=== PATIENT | male | born 1960 | race Caucasian/White ===

== ENCOUNTER 2020-03-03 07:44 | Outpatient (CLI) | payer BC, SELFPAY ==
--- NOTE | 2020-03-19 22:17 | SLEEP_ITS ---
HOME SLEEP TEST DATE OF STUDY: 03/03/2020 ORDERING PROVIDER: An Lozoya NP. REASON FOR THE STUDY: Sleep apnea, CPAP machine is old. HISTORY: This patient is a 60-year-old male, 5 feet 9 inches tall, weighing 210 pounds with a body mass index of 31 kg/sq m. He has a history of obstructive sleep apnea, on CPAP. Most recent study in our system shows a CPAP titration on 02/04/2004 with an optimal pressure of 18 cm for severe HANSEL. Since then, he has had another study elsewhere. On his initial study, his desaturation was as low as 33%. He does have a history of loud snoring. He does not have trouble sleeping with the cold and does not wake up gasping for breath at night. He does not have breathing problems at night observed by others and he does not sweat excessively at night. He does not notice his heart pounding or beating irregularly at night. He occasionally falls asleep during the day, occasionally involuntarily. He does not fall asleep while driving, during physical effort. He does not have loss of muscle tone with strong emotion and does not have daytime difficulties due to excessive sleepiness. He does not feel paralyzed on waking or falling asleep, does not have vivid dreamlike scenes upon awakening or falling asleep. He is never afraid to go to sleep. He denies nightmares. He constantly remembers his dreams and constantly has racing thoughts. He does not have feelings of sadness, depression, or anxiety, does not have muscular tension or notices parts of his body jerking. He does not kick at night. He does not have crawly achy feelings in his legs and does not have any leg pain at night. He denies having morning jaw pain. He constantly grinds his teeth during the sleep. He is not bothered by pain during the day, is not awakened by pain during the night, does not wake up feeling stiff in the morning with sore achy muscles or pain in the neck and spine. Normal bedtime is 8 p.m., falling asleep within 10 minutes, waking once at night for about 2 minutes to use the bathroom. He awakens at 3 in the morning. He takes naps in the afternoon. A short nap can be refreshing. He is usually drowsy for 3 hours or longer after waking. He feels better in the morning than other times of the day. MEDICAL COMORBIDITIES: Obstructive sleep apnea syndrome for at least 16 years, back surgery 20 years ago, fusion at L5, and seasonal allergies. MEDICATIONS: No routine prescribed medications. HABITS: Never smoked tobacco. No caffeine or alcohol. DESCRIPTION OF THE STUDY: On the [place] Sleepiness Scale, the score was elevated at 11. This test was conducted as an unattended type 3 portable home sleep test using 4-channel monitoring, including respiratory effort channel, snoring channel, oxygen saturation channel, and heart rate channel. This study was scored using the CMS guidelines. The evaluation time was 5 hours and 42 minutes. There was a loss of signal in the pulse and saturation channels; however, during the 43 minutes that pulse and saturation were picked up, he had profound desaturation and spikes in the heart rate. His apnea-hypopnea index is elevated at 63. His oxygen desaturation index is 38. The lowest desaturation is 52, profoundly decreased. The average saturation was 87%. The patient had 357 apneas, the majority of 79% or 282 apneas were obstructive, 16 apneas or 4% were central, and 59 apneas or 17% were mixed. He had no hypopneas. He had 746 snoring events and desaturated 27 times, spending 12 minutes or 26% of the captured time below 88%. Heart rate ranged from 42 to 151. IMPRESSION: 1. This home sleep test shows severe obstructive sleep apnea syndrome, G47.33. The AHI is 63, profound desaturation to 52% occurred, and the
== END 2020-03-03 07:45 | disposition home or self-care (01) ==
LOC: ANHCSM 07:45
PROVIDERS: PCP Family Medicine; Visit Provider Nurse Practitioner
DX: G47.33 Obstructive sleep apnea (adult) (pediatric) (principal)
CPT/HCPCS: 95806

== ENCOUNTER 2020-04-14 01:48 | Outpatient (CLI) | payer BC, SELFPAY ==
[2020-04-14 20:39] LABS: SARS-CoV-2 RNA PCR Negative
== END 2020-04-14 01:49 | disposition home or self-care (01) ==
LOC: ANHCOVIDDT 01:48
PROVIDERS: PCP Family Medicine; Visit Provider Internal Medicine Critical Care Medicine
DX: Z01.812 Encounter for preprocedural laboratory examination (principal); Z20.828 Contact with and (suspected) exposure to other viral communicable diseases
CPT/HCPCS: 87635; C9803; U0003

== ENCOUNTER 2020-04-30 13:50 | Outpatient (CLI) | payer BC, SELFPAY ==
--- NOTE | ~2020-04-30 | MR_ITS ---
EXAMINATION: MR shoulder LT wo con DATE: 04/30/2020 14:30 INDICATION: Left shoulder pain. TECHNIQUE: Magnetic resonance imaging (MRI) of the left shoulder was performed without intravenous co ntrast. Sequences included axial PD-weighted FS FSE, coronal oblique PD-weighted FS FSE and T2-weight ed FS FSE, and sagittal oblique T2-weighted FS FSE and T1-weighted FSE. COMPARISON: None. FINDINGS: Coracoacromial arch: The acromion undersurface is curved in morphology (type II). There is severe acromioclavicular joint osteoarthritis including inferiorly directed osteophytes. There is moderate subacromial/subdeltoid bu rsitis. Rotator cuff: There is a full-thickness tear of supraspinatus and anterior infraspinatus tendons measuring 2.2 cm a nterior to posterior by 2.6 cm proximal to distal. Teres minor tendon is normal. There is severe subs capularis tendinopathy with partial-thickness, articular-sided tear. There is no asymmetric fatty atr ophy of the rotator cuff muscle bellies. Biceps tendon and glenoid labrum: There is a partial tear of proximal biceps tendon, which is medially displaced into the subscapularis tendon tear. There are tears of the superior and posterior labrum (SLAP tear). Fluid: There is a moderate-sized glenohumeral joint effusion. Bones/cartilage: There is cartilage surface irregularity of glenoid and humeral head. Osteophytes are noted. IMPRESSION: 1. Full-thickness rotator cuff tear. 2. Mild glenohumeral joint chondrosis. SLAP tear. 3. Partial tear of proximal biceps tendon, which is medially displaced into a subscapularis tendon te ar. 4. Moderate-sized glenohumeral joint effusion and moderate subacromial/subdeltoid bursitis. 5. Severe acromioclavicular joint osteoarthritis. Reviewed, dictated and finalized at location A. BUILDER IMPRESSION: 1. Full-thickness rotator cuff tear. 2. Mild glenohumeral joint chondrosis. SLAP tear. 3. Partial tear of proximal biceps tendon, which is medially displaced into a s ubscapularis tendon tear. 4. Moderate-sized glenohumeral joint effusion and moderate subacromial/subdelto id bursitis. 5. Severe acromioclavicular joint osteoarthritis.
== END 2020-04-30 13:51 ==
DX: M25.512 Pain in left shoulder (principal); M75.102 Unspecified rotator cuff tear or rupture of left shoulder, not specified as traumatic; S43.432A Superior glenoid labrum lesion of left shoulder, initial encounter; M94.8X2 Other specified disorders of cartilage, upper arm; S46.212A Strain of muscle, fascia and tendon of other parts of biceps, left arm, initial encounter; M25.412 Effusion, left shoulder; M75.52 Bursitis of left shoulder; M19.012 Primary osteoarthritis, left shoulder
CPT/HCPCS: 73221

== ENCOUNTER 2021-12-30 09:45 | Outpatient (CLI) | payer BC, SELFPAY ==
[2021-12-30 20:16] LABS: Basophils Absolute Auto 0.1 K/mm3 (0.0-0.1); Basophils Percent Auto 0.7 % (0.2-1.2); Eosinophils Absolute Auto 0.3 K/mm3 (0-0.3); Eosinophils Percent Auto 4.6 % (0-4.4); Hematocrit 42.8 % (42.0-52.0); Hemoglobin 14.7 g/dL (14.0-18.0); Immature Granulocyte Absolute 0.08 K/mm3 (0.00-0.031); Immature Granulocyte Percent A 1.1 % (0-0.5); Lymphocytes Absolute Auto 2.03 K/mm3 (0.9-3.2); Lymphocytes Percent Auto 28.1 % (18.3-44.2); Mean Corpuscular HGB Conc 34.3 g/dl (32-36); Mean Corpuscular Hemoglobin 32.6 pg (26-34); Mean Corpuscular Volume 94.9 fl (80-100); Mean Platelet Volume 10.7 fl (7.4-10.4); Monocytes Absolute Auto 0.4 K/mm3 (0.1-0.6); Monocytes Percent Auto 6.1 % (2.6-8.5); Neutrophils Absolute Auto 4.3 K/mm3 (1.3-6.7); Neutrophils Percent Auto 59.4 % (45.5-73.1); Nucleated Red Blood Cells Perc 0.3 % (0.0-0.2); Platelet Count Result 166 k/mm3 (150-375); Red Blood Count 4.51 M/mm3 (4.6-6.20); Red Cell Distribution Width 12.7 % (11.5-14.5); White Blood Count 7.2 K/mm3 (4.5-10.0)
[2021-12-30 21:18] LABS: Alanine Aminotransferase 36 U/L (6-50); Albumin Level 4.3 g/dL (3.5-5.1); Alkaline Phosphatase 82 U/L (38-126); Anion Gap 9 mmol/L (8-16); Aspartate Amino Transferase 40 U/L (17-59); Bilirubin,Total 0.5 mg/dL (0.2-1.3); Blood Urea Nitrogen 15 mg/dL (9-20); Calcium 9.2 mg/dL (8.4-10.2); Carbon Dioxide 28 mmol/L (22-30); Chloride 100 mmol/L (98-107); Cholesterol 227 mg/dL (0-200); Estimated Glomerular Filt Rate > 60; Glucose 175 mg/dL (65-110); HDL Direct 37 mg/dL; Potassium 4.3 mmol/L (3.4-5.0); Sodium 137 mmol/L (137-145); Triglycerides 382 mg/dL (<150)
[2021-12-30 21:29] LABS: LDL Cholesterol Direct 97 mg/dL
[2021-12-30 21:37] LABS: Vitamin D 25 Hydroxy 48.2 ng/mL
[2021-12-30 21:46] LABS: Prostate Specific Antigen 0.8 ng/mL (< OR = 4.0)
[2022-01-01 17:29] LABS: Hemoglobin A1C 7.6 % (<5.7)
== END 2021-12-30 09:46 | disposition home or self-care (01) ==
LOC: ANHGOSHLAB 09:46
PROVIDERS: PCP Nurse Practitioner; Visit Provider Nurse Practitioner
DX: Z00.00 Encounter for general adult medical examination without abnormal findings (principal); R73.9 Hyperglycemia, unspecified; E78.2 Mixed hyperlipidemia; E55.9 Vitamin D deficiency, unspecified; Z12.5 Encounter for screening for malignant neoplasm of prostate
CPT/HCPCS: 36415; 80053; 80061; 82306; 83036; 84153; 85025; G0103

== ENCOUNTER 2022-04-19 10:40 | Inpatient (IN) | payer BC, SELFPAY ==
[2022-04-19] VITALS (14 sets, daily range): BP systolic 101–126; BP diastolic 76–101; PULSE 92–109; RESP 14–24; TEMP 36.3–37.1; O2SAT 93–97; BMI 26.6
--- NOTE | 2022-04-19 10:41 | ECG_ITS ---
Measurements Intervals [place] Rate: 87 P: 32 WY: 142 QRS: -11 QRSD: 102 T: -21 QT: 418 QTc: 504 Interpretive Statements SINUS RHYTHM CONSIDER INFERIOR INFARCT, AGE INDETERMINATE ANTEROLATERAL ST ELEVATION MYOCARDIAL INFARCT- ACUTE HIGH LATERAL ST ELEVATION MYOCARDIAL INFARCT- ACUTE BASELINE WANDER- AVF ABNORMAL ECG NO PREVIOUS ECG AVAILABLE FOR COMPARISON Electronically Signed On 04-19-2022 11:42:14 GROCERY DEPARTMENT MANAGER by Teddy Renteria D.O.
--- NOTE | 2022-04-19 10:41 | ED.CHESTPAIN ---
HPI - Chest Pain General Chief Complaint: Chest Pain Stated Complaint: STEMI Source: RN notes reviewed History of Present Illness HPI narrative: Patient presents emergency department from PCPs office via EMS for chest pain. Patient states he began to have chest pain last night the pain is located over the left side of his chest and went to his left arm described as a pressure nature states it began approximately 8 PM. When he went to his PCPs office this morning EKG was obtained showing ST elevation EMS was called and the STEMI was called in the field. Patient was given 325 mg of aspirin as well as a nitro and states he is chest pain-free at this time. Denies any previous cardiac history states he does have a history of diabetes and high cholesterol Related Data Home Medications Medication Instructions Recorded Confirmed cetirizine 10 mg tablet (Zyrtec) 10 mg PO DAILY PRN 08/18/20 04/19/22 meclizine 25 mg tablet 25 mg PO DAILY PRN 12/30/21 04/19/22 cetirizine 5 mg-pseudoephedrine ER 1 tablet PO Q12H 04/19/22 04/19/22 120 mg tablet,extended release,12hr (Zyrtec-D) Allergies Allergy/AdvReac Type Severity Reaction Status Date / Time No Known Allergies Allergy Verified 04/19/22 09:20 Review of Systems Review of Systems: Gen.: Denies fevers or chills ENT: Denies congestion Respiratory: Denies shortness of breath or cough CV: See HPI GI: Denies abdominal pain nausea, emesis or diarrhea Musculoskeletal: Denies back pain or muscle pain Neuro: Denies numbness, tingling, weakness or focal weakness Skin: Denies rash Except as documented, all other systems reviewed and negative [facility] Past Medical History Medical History Combined hyperlipidemia Diabetes Erectile dysfunction HANSEL on CPAP Recurrent vertigo Vitamin D deficiency, unspecified Family History Family History Father Acute myocardial infarction Social History Social History Social History: Pt is lives with . Pt is retired. Smoking status: Never smoker Alcohol intake: current Substance use: never Substance use type: does not use Gender identity (if verbalized by the patient): Male Sexual Orientation (if Verbalized by the Patient): Straight or Heterosexual Spiritual care concerns: No Agree to blood products: Yes Exam Narrative: APPEARANCE: No acute distress, nontoxic, resting in bed EYES: EOMI HEENT: Normocephalic, atraumatic, OMM RESPIRATORY: No respiratory distress Clear to auscultation bilaterally with no rhonchi wheezing or rales. CARDIOVASCULAR: Regular rate and rhythm without murmurs rubs or gallops. ABDOMINAL: Soft, nontender, nondistended, no rebound or guarding MUSCULOSKELETAl: Moves all extremities. No clubbing, cyanosis or edema. NEURO: Awake and alert. Following commands, speech normal, no focal deficits SKIN:: Warm, dry. No rashes lesions or abrasions PSYCHIATRIC: Normal affect/mood, Course Course Emergency Course: Code STEMI activated upon activation by EMS in the field Concentrator Operator team is down in the emergency department requests patient go to Concentrator Operator at this time Heparin 4000 units to be given x1 at this time Vital Signs Vital signs: Vital Signs Temperature 97.3 F L 04/19/22 10:43 Pulse Rate 96 04/19/22 10:43 Respiratory Rate 14 04/19/22 10:43 Blood Pressure 118/90 04/19/22 10:43 Pulse Oximetry 97 04/19/22 10:43 Temperature 97.3 F L 04/19/22 10:43 Pulse Rate 96 04/19/22 10:43 Respiratory Rate 14 04/19/22 10:43 Blood Pressure 118/90 04/19/22 10:43 Pulse Oximetry 97 04/19/22 10:43 MDM - Chest Pain Lab Data Result diagrams: 04/19/22 10:47 04/19/22 10:47 Labs: Lab Results 04/19/22 04/19/22 04/19/22 Range/Units 10:47 10:47 10:47 WBC 13.7 H (4.5-10.0)
--- NOTE | 2022-04-19 10:45 | WPDMODSED ---
Moderate Sedation Note-Pt Data Patient Data Diagnosis: STEMI Present Complaint: chest pain Procedure to be performed/Plan: coronary angiogram with possible stent Allergies Allergy/AdvReac Type Severity Reaction Status Date / Time No Known Allergies Allergy Verified 04/19/22 09:20 Home Medications Medication Instructions Recorded Confirmed Type cetirizine 10 mg tablet (Zyrtec) 10 mg PO DAILY PRN 08/18/20 04/19/22 History meclizine 25 mg tablet 25 mg PO DAILY PRN 12/30/21 04/19/22 History sildenafil (pulm.hypertension) 20 20 mg PO .COMPLEX PRN sexual 12/30/21 04/19/22 Rx mg tablet activity #30 tabs blood sugar diagnostic (OneTouch #50 ea 01/13/22 04/19/22 Rx Ultra Test strips) blood-glucose meter (OneTouch #1 ea 01/13/22 04/19/22 Rx Ultra2 Meter kit) lancets 30 gauge (OneTouch Delica #100 ea 01/13/22 04/19/22 Rx Lancets) metformin 500 mg tablet 1,000 mg PO BIDWMEAL #120 tabs 03/05/22 04/19/22 Rx cetirizine 5 mg-pseudoephedrine ER 1 tablet PO Q12H 04/19/22 04/19/22 History 120 mg tablet,extended release,12hr (Zyrtec-D) Sedation/Anesthesia: No previous sedation/anesthesia problems (including family history). [facility] Past Medical History Medical History Combined hyperlipidemia Diabetes Erectile dysfunction HANSEL on CPAP Recurrent vertigo Vitamin D deficiency, unspecified Family History Family History Father Acute myocardial infarction Social History Social History Social History: Pt is lives with . Pt is retired. Smoking status: Never smoker Alcohol intake: current Substance use: never Substance use type: does not use Gender identity (if verbalized by the patient): Male Sexual Orientation (if Verbalized by the Patient): Straight or Heterosexual Spiritual care concerns: No Agree to blood products: Yes Mod Sed Physical Exam Physical Exam Pre Procedural Exam: Normal: Appearance, Eyes, Ears, Nose, Neck, Throat, Airway, Lungs, Heart Size, Heart Rate, Heart Rhythm, Neuro Exam, Abdomen, Liver, Kidneys, Spleen, Breasts, Genitalia, Extremities and Skin Hours since solid foods: 8 Hours since liquid intake: 8 Mallampati Classification: class 1 Internal Medicine - PN: Obj Da Vital Signs Vital Signs: Vital Signs - 24 hr 04/19/22 10:43 Temperature 36.3 C L Pulse Rate 96 Respiratory Rate 14 Blood Pressure 118/90 Pulse Oximetry 97 Labs CBC & Chem 7: 04/19/22 10:47 04/19/22 10:47 Labs: Laboratory Results - last 24 hr 04/19/22 04/19/22 04/19/22 10:47 10:47 10:47 WBC 13.7 H RBC 4.37 L Hgb 14.6 Hct 41.7 L MCV 95.4 MCH 33.4 MCHC 35.0 RDW 12.7 Plt Count 274 D MPV 9.8 Immature Gran % (Auto) 0.5 Neut % (Auto) 70.1 Lymph % (Auto) 19.5 [place] % (Auto) 6.6 Eos % (Auto) 2.9 Baso % (Auto) 0.4 Lymph # (Auto) 2.67 [place] # (Auto) 0.9 H Eos # (Auto) 0.4 H Baso # (Auto) 0.1 Abs Immat Gran (auto) 0.07 H Absolute Neuts (auto) 9.6 H Absolute Nucleated RBC 0.0 Nucleated RBC % 0.0 PT 13.7 INR 1.1 APTT 33.7 Sodium 135 L Potassium 4.1 Chloride 100 Carbon Dioxide 26 Anion Gap 9 BUN 19 Creatinine 1.10 Estim Creat Clear Calc 64 Estimated GFR > 60 Glucose 169 H Calcium 8.9 Total Bilirubin 0.9 AST 203 H ALT 49 Alkaline Phosphatase 80 Troponin I 16.100 H* Total Protein 7.0 Albumin 4.6 Triglycerides 168 H Cholesterol 158 LDL Cholesterol Direct 88 HDL Direct 39 Blood Type 04/19/22 10:47 WBC RBC Hgb Hct MCV MCH MCHC RDW Plt Count MPV Immature Gran % (Auto) Neut % (Auto) Lymph % (Auto) [place] % (Auto) Eos % (Auto) Baso % (Auto) Lymph # (Auto) [place] # (Auto) Eos # (Auto) Baso # (Au
[2022-04-19] MEDS: HEPARIN SODIUM 5,000 UNITS/ML VIAL 4000 UNITS IV PUSH (10:50)
[2022-04-19 10:52] LABS: Basophils Absolute Auto 0.1 K/mm3 (0.0-0.1); Basophils Percent Auto 0.4 % (0.2-1.2); Eosinophils Absolute Auto 0.4 K/mm3 (0-0.3); Eosinophils Percent Auto 2.9 % (0-4.4); Hematocrit 41.7 % (42.0-52.0); Hemoglobin 14.6 g/dL (14.0-18.0); Immature Granulocyte Absolute 0.07 K/mm3 (0.00-0.031); Immature Granulocyte Percent A 0.5 % (0-0.5); Lymphocytes Absolute Auto 2.67 K/mm3 (0.9-3.2); Lymphocytes Percent Auto 19.5 % (18.3-44.2); Mean Corpuscular Hemoglobin 33.4 pg (26-34); Mean Corpuscular Volume 95.4 fl (80-100); Mean Platelet Volume 9.8 fl (7.4-10.4); Monocytes Absolute Auto 0.9 K/mm3 (0.1-0.6); Monocytes Percent Auto 6.6 % (2.6-8.5); Neutrophils Absolute Auto 9.6 K/mm3 (1.3-6.7); Neutrophils Percent Auto 70.1 % (45.5-73.1); Platelet Count Result 274 k/mm3 (150-375); Red Blood Count 4.37 M/mm3 (4.6-6.20); Red Cell Distribution Width 12.7 % (11.5-14.5); White Blood Count 13.7 K/mm3 (4.5-10.0)
[2022-04-19 11:03] LABS: Alanine Aminotransferase 49 U/L (6-50); Albumin Level 4.6 g/dL (3.5-5.1); Alkaline Phosphatase 80 U/L (38-126); Anion Gap 9 mmol/L (8-16); Aspartate Amino Transferase 203 U/L (17-59); Bilirubin,Total 0.9 mg/dL (0.2-1.3); Blood Urea Nitrogen 19 mg/dL (9-20); Calcium 8.9 mg/dL (8.4-10.2); Carbon Dioxide 26 mmol/L (22-30); Chloride 100 mmol/L (98-107); Cholesterol 158 mg/dL (0-200); Estimated CRCL calculation 64 ml/min; Estimated Glomerular Filt Rate > 60; Glucose 169 mg/dL (65-110); HDL Direct 39 mg/dL; Potassium 4.1 mmol/L (3.4-5.0); Sodium 135 mmol/L (137-145); Triglycerides 168 mg/dL (<150)
[2022-04-19 11:05] LABS: INR 1.1; Prothrombin Time 13.7 Seconds (11.1-14.7)
[2022-04-19 11:06] LABS: Partial Thromboplastin Time 33.7 SECONDS (22.3-36.8)
[2022-04-19 11:14] LABS: LDL Cholesterol Direct 88 mg/dL
--- NOTE | 2022-04-19 11:47 | PM.IMHP ---
H&P: HPI History of Present Illness Date/Time: Date of service 04/19/22 1047am Chief Complaint: chest pain Narrative: this 62-year-old patient past history type 2 diabetes, on metformin started yesterday at 8:00 p.m. having chest pain right and left arms. He thought it is muscle aches. He presented here to the ER and was anterior ST-elevation myocardial infarction with Q-waves. Was having pain about 5/10. Denies shortness of breath, palpitations, dizziness, syncope . Does not smoke cigarettes and does not drink alcohol Review of Systems Constitutional: Constitutional: Denies chills, Denies fever(s) and Denies poor appetite Eyes: Eyes: Denies eye discharge, Denies loss of vision, Denies eye pain and Denies photophobia ENT: Denies dizziness, Denies epistaxis, Denies nasal congestion and Denies sore throat Cardiovascular: Cardiovascular: Reports chest pain, Denies syncope, Denies pedal edema, Denies leg edema, Denies palpitations, Denies dyspnea, Denies dyspnea on exertion and Denies orthopnea Respiratory: Respiratory: Denies cough, Denies dyspnea, Denies dyspnea on exertion and Denies wheezing Gastrointestinal: Gastrointestinal: Denies abdominal pain, Denies diarrhea, Denies nausea and Denies vomiting Genitourinary: Genitourinary: Denies hematuria, Denies genital lesions and Denies dysuria Musculoskeletal: Musculoskeletal: Denies arthralgias, Denies joint swelling and Denies numbness Integumentary/Breasts: Skin/Breast: Denies pruritus and Denies rash Neurologic: Denies dizziness, Denies syncope, Denies loss of vision and Denies numbness Psychiatric: Psychiatric: Denies anxiety and Denies depression Endocrine: Endocrine: Denies cold intolerance, Denies heat intolerance and Denies palpitations Hematologic/Lymphatic: Hematologic/Lymphatic: Denies easy bleeding and Denies easy bruising Allergic/Immunologic: Allergic/Immunologic: Denies urticaria and Denies wheezing PMFSH Past Medical History Medical History Combined hyperlipidemia Diabetes Erectile dysfunction HANSEL on CPAP Recurrent vertigo Vitamin D deficiency, unspecified Family History Family History Father Acute myocardial infarction Social History Social History Social History: Pt is lives with . Pt is retired. Smoking status: Never smoker Alcohol intake: current Substance use: never Substance use type: does not use Gender identity (if verbalized by the patient): Male Sexual Orientation (if Verbalized by the Patient): Straight or Heterosexual Spiritual care concerns: No Agree to blood products: Yes Meds Home Medications and Allergies Home Medications Medication Instructions Recorded Confirmed Type cetirizine 10 mg tablet (Zyrtec) 10 mg PO DAILY PRN 08/18/20 04/19/22 History meclizine 25 mg tablet 25 mg PO DAILY PRN 12/30/21 04/19/22 History sildenafil (pulm.hypertension) 20 20 mg PO .COMPLEX PRN sexual 12/30/21 04/19/22 Rx mg tablet activity #30 tabs blood sugar diagnostic (OneTouch #50 ea 01/13/22 04/19/22 Rx Ultra Test strips) blood-glucose meter (OneTouch #1 ea 01/13/22 04/19/22 Rx Ultra2 Meter kit) lancets 30 gauge (OneTouch Delica #100 ea 01/13/22 04/19/22 Rx Lancets) metformin 500 mg tablet 1,000 mg PO BIDWMEAL #120 tabs 03/05/22 04/19/22 Rx cetirizine 5 mg-pseudoephedrine ER 1 tablet PO Q12H 04/19/22 04/19/22 History 120 mg tablet,extended release,12hr (Zyrtec-D) Allergies Allergy/AdvReac Type Severity Reaction Status Date / Time No Known Allergies Allergy Verified 04/19/22 09:20 Vital Signs Vital Signs - 24 hr 04/19/22 10:43 Temperature 36.3 C L Pulse Rate 96 Respiratory Rate 14 Blood Pressure 118/90 Pulse Oximetry 97 Exam Const: General: cooperative, comfortable, no acute distress, alert, awake and
--- NOTE | 2022-04-19 11:52 | WPDCARDPROC ---
Cardiac Cath Procedure Note Date of procedure:: 04/19/22 Performing physician:: Carlin Matthew MD Indication:: chest pain anterior STEMI Brief clinical history:: this 62-year-old patient past history type 2 diabetes,? on metformin started yesterday at 8:00 p.m. having chest pain right and left arms.? He thought it is muscle aches.? He presented here to the ER and was anterior ST-elevation myocardial infarction with Q-waves.? Was having pain about 5/10.? Denies shortness of breath, palpitations, dizziness, syncope . Does not smoke cigarettes and does not drink alcohol Procedure Procedure performed:: 1-Moderate sedation that started at 11:02 a.m.and ended at 11:41 am with total duration 39 minutes using 1 mg of Versed and 50mcg fentanyl. The registered nurse was Carlos Adam. 2-Selective left and right coronary angiogram. 3-Left heart catheterization with measurement of LVEDP and measurement of gradient across aortic valve. 4- deployment of a drug-eluting stent Xience 3 x 23 covering mid LAD with deployment done under nominal pressure for 25 seconds 4-Right common femoral arterial angiogram. 5-Deployment of 6 Prydeinig Angio-Seal. Sedation/Medication given:: Moderate sedation. Access site:: Right common femoral artery. Estimated blood loss:: 10cc Procedure note:: After informed consent patient was brought in to labor relations specialist with the was draped and prepped in usual manner. Moderate sedation was given and the right groin was infiltrated using 1% lidocaine. Five Prydeinig sheath was obtained using micropuncture needle and the modified Seldinger technique. Selective left coronary angiogram was done using JL4 catheter with the tip of the catheter placed in the left main coronary artery. then after that 6 Prydeinig guide catheter CLS 3.5 was advanced engaging the left main. Board Certified Arts Therapist 150 wire was advanced across the mid LAD lesion to the distal LAD and then balloon angioplasty done using 3 x 15 balloon with 3 inflations each under normal pressure for 15 seconds. then after that deployed drug-eluting stent 3 x 23 Xience glenn point with deployment under normal pressure for 25 seconds. Selective right coronary angiogram was done using JR4 catheter with the tip of the catheter placed to the right coronary artery. After that 5 Prydeinig pigtail catheter was advanced across the aortic valve into the left ventricle with measurement of LVEDP and measurement of gradient across aortic valve. Right common femoral arterial angiogram was done. deployed 6 Prydeinig Angio-Seal Findings:: 1- left coronary artery is a large artery that divides into large LAD, large circumflex artery. Left main is free of disease. 2- left anterior descending artery is a large artery And totally occluded in the mid segment after bifurcation with the large septal branch. SIERRA flow 0 3- leftcircumflex artery is a large artery. after giving OM branch the chicken [place] left circumflex artery is relatively small with the stenosis about 80%. OM1 branch is large with diffuse 50% proximally. 4- right coronary artery is Large artery dominant with multiple lesions 40-50%. RPL small in size with focal area of 70%. 5- LVEDP was 30 mm Hgand no gradient across aortic valve. 6- opening arterial pressure was 155/44 and closing pressure was 123/72 7- right femoral artery angiogram shows no significant disease in the right common femoral artery. Assessment and Plan Assessment and plan (1) ST elevation (STEMI) myocardial infarction: Code(s): I21.3 - ST elevation (STEMI) myocardial infarction of unspecified site Status: Acute Plan 1- obtain echocardiogram. 2- high-intensity statin. 3- check hemoglobin A1c. 4- diabetic Education. 5- cardiac rehab. 6- continue aspirin and Brilinta
--- NOTE | 2022-04-19 12:07 | ECHO_ITS ---
Patient Info Name: Sesar Alves Age: 62 years : 1960 Gender: Male Ht: 69 in Wt: 169 lbs BSA: 1.94 m2 HR: 91 bpm BP: 118 / 90 mmHg Heart Rhythm: Sinus Rhythm Technical Quality: Good Exam Date: 04/19/2022 2:59 PM Exam Location: [facility] Patient Status: Inpatient Admit Date: 04/19/2022 Staff Ordering Physician: Carlin Matthew MD Management Accounts Manager: Norma Larry RDCS Attending Provider: Andrew Muñiz MD Referring Physician: Vipul RIVERA; Exam Type: CA echo dop color flow w con Study Info Indications I21.4 - Non-ST elevation (NSTEMI) myocardial infarction Complete two-dimensional, color flow and Doppler transthoracic echocardiogram is performed with contrast to opacify the left ventricle and to improve the deliniation of the left ventricle endocardial borders. Contrast/Agitated Saline Contrast/Ag. Saline: Definity Amount: 3.00 ml Administered By: Norma Larry RDCS Existing IV Access: Yes IV Access Condition: patent with no signs of infiltration Summary 1. Left ventricular systolic function is moderately reduced, estimated at 30-35%. 2. Regional wall motion abnormalities consistent with an LAD infarct. 3. There is mildly increased left ventricular wall thickness. 4. The left ventricular diastolic function is grade I diastolic dysfunction. 5. Right ventricular systolic function is normal. 6. No significant valvular disease. Left Ventricle Left ventricular chamber dimension is normal. Left ventricular systolic function is moderately reduced, estimated at 30-35%. There is mildly increased left ventricular wall thickness. The left ventricular diastolic function is grade I diastolic dysfunction. Regional wall motion abnormalities consistent with an LAD infarct. Right Ventricle Right ventricular chamber dimension is normal. Right ventricular systolic function is normal. Left Atria Left atrial chamber dimension is normal. Right Atria Right atrial chamber dimension is normal. Atrial Septum Intact interatrial septum visualized by color flow imaging. Aortic Valve The aortic valve is not well visualized. There is no aortic valve stenosis. There is no aortic valve regurgitation. Pulmonic Valve The pulmonic valve is not well visualized. Mitral Valve The mitral valve has not well visualized. There is no mitral valve stenosis. There is no mitral valve regurgitation. Tricuspid Valve The tricuspid valve leaflets are normal. There is trace tricuspid valve regurgitation. Pericardium/Pleural There is trivial pericardial effusion. Aorta The aortic root size at the sinus of Valsalva is normal. Left Ventricular Outflow Tract Name Value Normal LVOT 2D LVOT Diameter 2.04 cm LVOT Doppler LVOT Peak Gradient 4 mmHg LVOT Mean Gradient 3 mmHg LVOT VTI 15.96 cm LVOT VTI/AV VTI Ratio 1.02 LVOT Stroke Volume 52.39 ml LVOT CO 5.29 l/min
--- NOTE | 2022-04-19 12:07 | ECG_ITS ---
Measurements Intervals [place] Rate: 87 P: 32 MN: 142 QRS: -11 QRSD: 102 T: -21 QT: 418 QTc: 504 Interpretive Statements SINUS RHYTHM CONSIDER INFERIOR INFARCT, AGE INDETERMINATE ANTEROLATERAL ST ELEVATION MYOCARDIAL INFARCT- ACUTE HIGH LATERAL ST ELEVATION MYOCARDIAL INFARCT- ACUTE BASELINE WANDER- II, AVR, AVF ABNORMAL ECG Electronically Signed On 04-19-2022 12:55:28 SLAB STRIPPER by Teddy Renteria D.O.
--- NOTE | 2022-04-19 12:09 | PC.NURSE ---
This patient, Sesar Alves, was admitted to Intensive Care Unit-11. Patient/family oriented to hospital policies and general routines including ID bracelet, bed and alarms, visiting hours, pain management, procedures, bathroom and other care routines, personal items, smoking policy, room service/diet, and visiting hours. Information on how to activate the Rapid Response Team has been discussed. Patient/Family are encouraged to report perceived risks to care and to ask questions if they do not understand what they are told or what they should do.
--- NOTE | 2022-04-19 13:04 | WPDCNINT ---
Assessment and Plan Assessment and plan (1) ST elevation (STEMI) myocardial infarction: Code(s): I21.3 - ST elevation (STEMI) myocardial infarction of unspecified site Status: Acute Assessment and Plan: Anterior STEMI status post cardiac catheterization and PCI of left anterior descending artery which was 100% occluded ICU telemetry Check echocardiogram Continue aspirin, statin and Brilinta Start low-dose ARB and beta-penny (2) Diabetes: Qualifiers: Diabetes mellitus complication status: without complication Diabetes mellitus fdc insulin use: without unit supervisor use Diabetes mellitus type: type 2 Qualified Code(s): E11.9 - Type 2 diabetes mellitus without complications Code(s): E11.9 - Type 2 diabetes mellitus without complications Status: Acute Assessment and Plan: Sliding scale insulin HbA1c is 7.6 Metformin will be held today and resume from tomorrow IV fluids for renal protection Plan DVT prophylaxis -received anticoagulation prior to PCI and I expect patient will ambulate by tomorrow Nutrition -heart healthy diet Code Status - Full Code Patient's Family updated at bedside Medical Imaging Director Consult Note Consult date: 04/19/22 Reason for consult: STEMI HPI: Sesar Alves is a 62 year old male with past medical history of diabetes presented today from his PCP office with chest pain. Pain started around 8:00 p.m. last night, he stated the pain started in his left armpit and radiated to left arm, throbbing quality, 8/10 severe. No nausea vomiting dizziness lightheadedness shortness of breath or palpitation. He felt that he was breathing heavier than usual. He took some [id number] pain medication and slept. This morning he went to see his primary care physician where EKG showed ST segment elevation he was sent by ambulance to ER. ED he was diagnosed with STEMI and was taken to cardiac catheterization lab where he underwent PCI with stent placement to LAD. He had elevated LVEDP. Procedure was otherwise uncomplicated Postprocedure he is admitted to ICU for further evaluation management. At this time he denies any new complaints he states his pain has improved and he would only rate at 2/10 achy pain at this time. No other complaints at this time. All other systems were reviewed and were negative Review of Systems Review of Systems: All systems reviewed & are unremarkable except as noted in HPI and below (HPI) FORMERLY [facility], [facility] Past Medical History Medical History Combined hyperlipidemia Diabetes Erectile dysfunction HANSEL on CPAP Recurrent vertigo Vitamin D deficiency, unspecified Family History Family History Father Acute myocardial infarction Social History Social History Social History: Pt is lives with . Pt is retired. Smoking status: Never smoker Alcohol intake: never Substance use: never Substance use type: marijuana Lack of Transportation: No Lack of Food: Never True Current Housing: I Have Housing Concerned About Future Housing: No Difficulty Paying Gas/Electric Bills: No Difficulty Paying for Meds: No Currently Unemployed: No Education: High School Diploma/GED Difficulty w/ Childcare or Family Care: No Gender identity (if verbalized by the patient): Male Sexual Orientation (if Verbalized by the Patient): Straight or Heterosexual Spiritual care concerns: No Agree to blood products: Yes Meds Home Medications and Allergies Home Medications Medication Instructions Recorded Confirmed Type meclizine 25 mg tablet 25 mg PO DAILY PRN Vertigo 12/30/21 04/19/22 History sildenafil (pulm.hypertension) 20 20 mg PO .COMPLEX PRN sexual 12/30/21 04/19/22 Rx mg tablet activity #30 tabs blood sugar diagnostic (OneTouch #50 ea 01/13/22 04/19/22 Rx Ultr
[2022-04-19] MEDS: HYDROcodone/acetaminophen (*CRX) 5-325 MG TABLET 1 TAB PO ×3 (13:34→21:57)
[2022-04-19 13:58] LABS: Cholesterol 151 mg/dL (0-200); HDL Direct 43 mg/dL; Triglycerides 155 mg/dL (<150)
[2022-04-19 14:02] LABS: Troponin I > 80.000 ng/mL (0.000-0.034)
[2022-04-19 14:03] LABS: Hemoglobin A1C 6.7 % (<5.7)
[2022-04-19 14:08] LABS: LDL Cholesterol Direct 86 mg/dL
[2022-04-19 14:17] LABS: Glucose Point of Care 156 mg/dl (65-105)
[2022-04-19] MEDS: ACETAMINOPHEN 325 MG TABLET 650 MG PO (15:20)
[2022-04-19] MEDS: PERFLUTREN LIPID MICROSPHERES 1.5 ML VIAL DILUTED TO 10 ML TOTAL VOLUME IV PUSH (15:25)
[2022-04-19] MEDS: METOPROLOL TARTRATE 12.5 MG TABLET PO (20:12)
[2022-04-19] MEDS: TICAGRELOR 90 MG TABLET PO (20:12)
[2022-04-19 20:27] LABS: Glucose Point of Care 230 mg/dl (65-105)
[2022-04-19] MEDS: TEMAZEPAM (*CRX) 15 MG CAPSULE PO (22:02)
[2022-04-20] VITALS (15 sets, daily range): BP systolic 93–121; BP diastolic 65–97; PULSE 57–131; RESP 13–26; TEMP 36.4–36.9; O2SAT 93–97
[2022-04-20] MEDS: ACETAMINOPHEN 325 MG TABLET 650 MG PO ×2 (00:18→07:58)
[2022-04-20] MEDS: HYDROcodone/acetaminophen (*CRX) 5-325 MG TABLET 1 TAB PO ×2 (02:19→21:42)
[2022-04-20 04:52] LABS: Anion Gap 11 mmol/L (8-16); Blood Urea Nitrogen 14 mg/dL (9-20); Calcium 8.7 mg/dL (8.4-10.2); Carbon Dioxide 25 mmol/L (22-30); Chloride 102 mmol/L (98-107); Estimated CRCL calculation 92 ml/min; Estimated Glomerular Filt Rate > 60; Glucose 159 mg/dL (65-110); Magnesium 1.7 mg/dL (1.6-2.3); Potassium 3.5 mmol/L (3.4-5.0); Sodium 138 mmol/L (137-145)
[2022-04-20 05:08] LABS: Basophils Percent Auto 0.3 % (0.2-1.2); Eosinophils Absolute Auto 0.2 K/mm3 (0-0.3); Eosinophils Percent Auto 2.1 % (0-4.4); Hematocrit 38.9 % (42.0-52.0); Hemoglobin 13.4 g/dL (14.0-18.0); Immature Granulocyte Absolute 0.05 K/mm3 (0.00-0.031); Immature Granulocyte Percent A 0.4 % (0-0.5); Lymphocytes Absolute Auto 1.87 K/mm3 (0.9-3.2); Lymphocytes Percent Auto 16.8 % (18.3-44.2); Mean Corpuscular HGB Conc 34.4 g/dl (32-36); Mean Corpuscular Hemoglobin 32.8 pg (26-34); Mean Corpuscular Volume 95.3 fl (80-100); Mean Platelet Volume 10.3 fl (7.4-10.4); Neutrophils Absolute Auto 7.9 K/mm3 (1.3-6.7); Neutrophils Percent Auto 71.4 % (45.5-73.1); Platelet Count Result 188 k/mm3 (150-375); Red Blood Count 4.08 M/mm3 (4.6-6.20); Red Cell Distribution Width 12.8 % (11.5-14.5); White Blood Count 11.1 K/mm3 (4.5-10.0)
--- NOTE | 2022-04-20 07:00 | ECG_ITS ---
Measurements Intervals [place] Rate: 95 P: 37 [place]: 124 QRS: 46 QRSD: 102 T: 186 QT: 410 QTc: 516 Interpretive Statements SINUS RHYTHM ANTEROLATERAL INFARCT, PROBABLY RECENT HIGH LATERAL INFARCT, PROBABLY RECENT ABNORMAL ECG COMPARED TO ECG 04/19/2022 10:40:53 NO SIGNIFICANT CHANGES Electronically Signed On 04-20-2022 10:58:40 CLAIMS SUPERVISOR by Teddy Renteria D.O.
[2022-04-20] MEDS: ASPIRIN 81 MG ENTERIC TABLET PO (08:04)
[2022-04-20] MEDS: TICAGRELOR 90 MG TABLET PO (08:04)
[2022-04-20] MEDS: ATORVASTATIN 40 MG TABLET 80 MG PO (08:04)
[2022-04-20] MEDS: METOPROLOL TARTRATE 12.5 MG TABLET PO (08:04)
[2022-04-20] MEDS: LOSARTAN POTASSIUM 25 MG TABLET PO (08:04)
[2022-04-20] MEDS: metFORMIN HCL 500 MG TABLET 1000 MG PO ×2 (08:04→16:58)
[2022-04-20 08:09] LABS: Glucose Point of Care 186 mg/dl (65-105)
--- NOTE | 2022-04-20 09:41 | PM.PNCARD ---
Progress Note: A&P Assessment and Plan (1) ST elevation (STEMI) myocardial infarction: Code(s): I21.3 - ST elevation (STEMI) myocardial infarction of unspecified site Status: Acute (2) Diabetes: Qualifiers: Diabetes mellitus type: type 2 Diabetes mellitus jail insulin use: without gas roller operator use Diabetes mellitus complication status: without complication Qualified Code(s): E11.9 - Type 2 diabetes mellitus without complications Code(s): E11.9 - Type 2 diabetes mellitus without complications Status: Acute (3) Combined hyperlipidemia: Code(s): E78.2 - Mixed hyperlipidemia Status: Chronic Plan Presented with an anterolateral STEMI 04/19. Cardiac cath showed: 1- left coronary artery is a large artery that divides into large LAD, large circumflex artery.? Left main is free of disease. 2- left anterior descending artery is a large artery? And totally occluded in the mid segment after bifurcation with the large septal branch.? SIERRA flow 0 3- left circumflex artery is a large artery. after giving? OM branch the [place] left circumflex artery is relatively small with the stenosis about 80%.? OM1 branch is large with diffuse? 50% proximally. 4- right coronary artery is? Large artery dominant with multiple lesions 40-50%. RPL small in size with focal area of 70%. 5- LVEDP was ? 30 mmHg and no gradient across aortic valve. 6- opening arterial pressure was 155/44 and closing pressure was? 123/72 7- right femoral artery angiogram shows no significant disease in the right common femoral artery. Underwent JOHNNY x 1 to the mid-LAD. Continue DAPT with ASA and Brilinta. Will need ASA indefinitely, Brilinta for at least 1 year. Continue high-intensity statin. Continue beta-penny. Continue Losartan. Echo pending, will follow-up on results. Referral to cardiac rehab placed. Time Spent With Patient Time with patient: 15 - 25 minutes Subjective Date/time seen: 04/20/22 09:41 Interval history: Reason for visit: STEMI. Had some mild chest pain overnight. Feels good this morning. No shortness of breath, lightheadedness/dizziness. No bleeding issues. Tolerating meds okay. Review of Systems Review of Systems: 8-point ROS obtained. Negative, unless stated in HPI. Exam Const: General: comfortable and no acute distress HENMT: Mouth: Yes moist mucous membranes Eyes: General: appearance normal, both eyes and all related structures Neck: Neck: supple and no JVD Resp: Effort & Inspection: normal respiratory effort Auscultation: clear to auscultation bilaterally Cardio: Rate: regular rate Rhythm: regular rhythm Heart sounds: no murmurs GI: GI Palp: Yes Soft to palpation and No Tenderness to palpation present (GI) Skin: General skin exam: normal color Neuro: Speech: normal speech Extrem: General: no edema Psych: Mental Status: mental status grossly normal Objective Data Vital Signs Vital Signs: Vital Signs - 24 hr 04/19/22 10:43 04/19/22 12:15 04/19/22 14:00 Temperature 36.3 C L Pulse Rate 96 104 H 96 Respiratory Rate 14 20 Blood Pressure 118/90 125/84 Pulse Oximetry 97 94 Oxygen Delivery 04/19/22 14:00 04/19/22 12:15 04/19/22 12:30 Temperature Pulse Rate 96 95 Respiratory Rate 20 20 Blood Pressure 120/101 H 121/89 Pulse Oximetry 96 94 95 Oxygen Delivery Room Air 04/19/22 12:45 04/19/22 13:00 04/19/22 13:30 Temperature Pulse Rate 98 95 94 Respiratory Rate 16 18 18 Blood Pressure 122/86 126/97 H 126/90 Pulse Oximetry 97 97 97 Oxygen Delivery 04/19/22 14:00 04/19/22 15:00 04/19/22 16:00 Temperature Pulse Rate 96 102 H 103 H Respiratory Rate 20 20 24 H Blood Pressure 120/101 H 115/79 108/77 Pulse Oximetry 96 95 96 Oxygen Delivery 04/19/22 16:00 04/19/22 16:00 04/19/22 17:00 Temperature Pulse Rate 104 H 106 H Respiratory Rate 20 Blood Pressure 105/85 Pulse Oximetry 94 95 Oxygen Delivery Room Air
--- NOTE | 2022-04-20 09:55 | WPDCNINT ---
Assessment and Plan Assessment and plan (1) ST elevation (STEMI) myocardial infarction: Code(s): I21.3 - ST elevation (STEMI) myocardial infarction of unspecified site Status: Acute Assessment and Plan: Patient presented with chest pain on 04/19/2022 , he was sent from his PCP's office via EMS to the ED for chest pain and EKG showed changes revealing ST-elevation [place]. In the ED EKG showed anterolateral high lateral ST elevations -status post PTCA/PCI with JOHNNY x1 to mid LAD -cardiology following the patient -continue dual antiplatelet therapy with aspirin and Brilinta. -continue high-dose statin, -continue beta-penny beta-penny and losartan -echocardiogram has been done and pending report (2) Diabetes: Qualifiers: Diabetes mellitus type: type 2 Diabetes mellitus usp insulin use: without long filler cigar roller machine use Diabetes mellitus complication status: without complication Qualified Code(s): E11.9 - Type 2 diabetes mellitus without complications Code(s): E11.9 - Type 2 diabetes mellitus without complications Status: Acute Assessment and Plan: Hemoglobin A1c is 6.7 -patient was recently diagnosed with diabetes, -continue metformin (3) HANSEL on CPAP: Code(s): G47.33 - Obstructive sleep apnea (adult) (pediatric); Z99.89 - Dependence on other enabling machines and devices Status: Chronic Assessment and Plan: CPAP at night and while sleeping (4) Combined hyperlipidemia: Code(s): E78.2 - Mixed hyperlipidemia Status: Chronic Assessment and Plan: Continue high-dose atorvastatin per Cardiology Plan DVT prophylaxis: Patient is going to be ambulate Stress ulcer prophylaxis: Not applicable Nutrition: Heart healthy diet, consulted dietitian Code Status: Full code Critical Care Time Spent: 43 minutes Due to a high probability of clinically significant, life threatening deterioration, the patient required my highest level of preparedness to intervene emergently and I personally spent this critical care time directly and personally managing the patient. This critical care time included obtaining a history; examining the patient; pulse oximetry; ordering and review of studies; arranging urgent treatment with development of a management plan; evaluation of patient's response to treatment; frequent reassessment; and discussions with other providers. It was exclusive of separately billable procedures and treating other patients and teaching time. Please see Assessment and Plan section and the rest of the note for further information on patient assessment and treatment Costume Specialist Consult Note Consult date: 04/20/22 Reason for consult: Chest pain, STEMI status post JOHNNY x1 to mid LAD HPI: Sesar Alves is a 62 year old male with past medical history of diabetes, hyperlipidemia, obstructive sleep apnea, vitamin-D deficiency, erectile dysfunction, presented the ED on 12/17/2021 from PCP's office via EMS with chest pain radiating to the left arm, patient stated that was pressure-like pain, complained of shortness of breath. Patient went to PCP's office via his EKG showed ST-elevation in his patient was sent to the ER via EMS for STEMI. Patient was given 325 mg of aspirin as well as nitroglycerin. In the ED EKG showed ST elevations in the anterolateral and high lateral leads with Q-waves. Patient was taken to the lab aid status post PTCA/PCI to mid LAD with JOHNNY x1. Post procedure patient was transferred to the ICU for further management Patient seen and examined the ICU this morning, his chest pain free, denies any shortness of breath, nausea, vomiting. Patient is concerned of what to eat and what not to eat from here onwards. I told him I will get dietitian to talk to him. Hemodynamically stable, adequate urine output Review of Systems Review of Systems: All systems reviewed & are unremarkable except as noted in HPI and below PMFSH Past Medical History
[2022-04-20 11:32] LABS: Glucose Point of Care 131 mg/dl (65-105)
[2022-04-20] MEDS: EMPAGLIFLOZIN 10 MG TABLET PO (12:24)
[2022-04-20 17:02] LABS: Glucose Point of Care 127 mg/dl (65-105)
[2022-04-20] MEDS: SACUBITRIL/VALSARTAN 24-26 MG TABLET 1 TAB PO (19:56)
[2022-04-20] MEDS: METOPROLOL TARTRATE 25 MG TABLET PO (19:56)
[2022-04-20 20:13] LABS: Glucose Point of Care 132 mg/dl (65-105)
--- NOTE | 2022-04-20 21:13 | PC.NURSE ---
This patient, Sesar Alves, was transferred to [facility] on 04/20/22 at 2113. Personal belongings sent with patient. Report given to PREMA Mendoza. Appropriate documentation sent with patient.
[2022-04-20] MEDS: TEMAZEPAM (*CRX) 15 MG CAPSULE PO (21:42)
--- NOTE | 2022-04-20 22:39 | PC.NURSE ---
This patient, Sesar Alves, was received from [ ICU 11] on 04/20/22 at 2110. Patient/family oriented to unit policies and routines
[2022-04-21] VITALS (8 sets, daily range): BP systolic 98–103; BP diastolic 56–75; PULSE 94–111; RESP 16–111; TEMP 36.3–36.5; O2SAT 94–100
[2022-04-21] MEDS: metFORMIN HCL 500 MG TABLET 1000 MG PO (09:10)
[2022-04-21] MEDS: EMPAGLIFLOZIN 10 MG TABLET PO (09:11)
[2022-04-21] MEDS: CLOPIDOGREL BISULFATE 300 MG TABLET 600 MG PO (09:11)
[2022-04-21] MEDS: ATORVASTATIN 40 MG TABLET 80 MG PO (09:11)
[2022-04-21 09:12] LABS: Glucose Point of Care 174 mg/dl (65-105)
[2022-04-21] MEDS: ASPIRIN 81 MG ENTERIC TABLET PO (09:12)
[2022-04-21] MEDS: SACUBITRIL/VALSARTAN 24-26 MG TABLET 1 TAB PO (09:12)
--- NOTE | 2022-04-21 11:00 | PM.DS ---
DS: Admitting Diagnosis Discharge Date 04/21/2022 Admitting Diagnosis STEMI DS: Discharge Diagnosis Discharge Diagnosis (1) ST elevation (STEMI) myocardial infarction: Code(s): I21.3 - ST elevation (STEMI) myocardial infarction of unspecified site Status: Acute (2) Diabetes: Qualifiers: Diabetes mellitus type: type 2 Diabetes mellitus watermaster insulin use: without intermediate use Diabetes mellitus complication status: without complication Qualified Code(s): E11.9 - Type 2 diabetes mellitus without complications Code(s): E11.9 - Type 2 diabetes mellitus without complications Status: Acute (3) HANSEL on CPAP: Code(s): G47.33 - Obstructive sleep apnea (adult) (pediatric); Z99.89 - Dependence on other enabling machines and devices Status: Chronic (4) Combined hyperlipidemia: Code(s): E78.2 - Mixed hyperlipidemia Status: Chronic (5) Atrial flutter: Code(s): I48.92 - Unspecified atrial flutter Status: Acute DS: Summary Hospital Course Reason for hospitalization: STEMI Hospital Course: Presented with an anterolateral STEMI 04/19. Cardiac cath showed: 1- left coronary artery is a large artery that divides into large LAD, large circumflex artery.? Left main is free of disease. 2- left anterior descending artery is a large artery? And totally occluded in the mid segment after bifurcation with the large septal branch.? SIERRA flow 0 3- left circumflex artery is a large artery. after giving? OM branch the [place] left circumflex artery is relatively small with the stenosis about 80%.? OM1 branch is large with diffuse? 50% proximally. 4- right coronary artery is? Large artery dominant with multiple lesions 40-50%. RPL small in size with focal area of 70%. 5- LVEDP was ? 30 mmHg and no gradient across aortic valve. 6- opening arterial pressure was 155/44 and closing pressure was? 123/72 7- right femoral artery angiogram shows no significant disease in the right common femoral artery. Underwent JOHNNY x 1 to the mid-LAD by Dr. Matthew. His echocardiogram showed moderately reduced LVEF. We started him on Entresto, Jardiance. Patient was given Brilinta prior to intervention, however Brilinta will be expensive for him to afford. Therefore, switched Brilinta to Plavix (gave 600mg loading dose 24 hours after Brilinta dose). Patient started on Metoprolol succinate. Continue high-intensity statin. Overnight on 04/21, patient noted to have runs of atrial flutter on telemetry with heart rate as high as the 160s-170s. When heart rate slowed down, flutter waves were seen. Patient had self-converted to sinus rhythm. Given his [id number] of 3 (CHF, MO, DM), he meets criteria for anticoagulation. To avoid triple therapy, will stop ASA. Start Eliquis. Continue with Plavix. We will discharge patient with a 30-day event monitor. Patient to follow-up with us in Cardiology Clinic. Time Spent with Patient Time attestation: Total time spent providing and/or coordinating discharge services: Time spent: Greater than 30 minutes Exam Const: General: comfortable and no acute distress HENMT: Mouth: Yes moist mucous membranes Eyes: General: appearance normal, both eyes and all related structures Sclera: sclerae normal Neck: Neck: supple and no JVD Resp: Effort & Inspection: normal respiratory effort Auscultation: clear to auscultation bilaterally Cardio: Rate: regular rate Rhythm: regular rhythm Heart sounds: no murmurs GI: GI Palp: Yes Soft to palpation and No Tenderness to palpation present (GI) Skin: General skin exam: normal color Neuro: Motor exam (neuro): 5/5 motor strength present throughout Extrem: General: normal to inspection and no edema Psych: Mental Status: mental status grossly normal Affect: normal affect DS: Data Data Completed and Pending Labs on day of discharge: Labs from last 24 hours 04/21/22 04/21/22 04/20/22 10:43 09:05 19:55 Sodium Pen
[2022-04-21] MEDS: APIXABAN 5 MG TABLET PO (11:02)
[2022-04-21] MEDS: METOPROLOL SUCCINATE EXT REL 50 MG TABCR PO (11:02)
[2022-04-21 11:03] LABS: Anion Gap 13 mmol/L (8-16); Blood Urea Nitrogen 15 mg/dL (9-20); Calcium 8.7 mg/dL (8.4-10.2); Carbon Dioxide 21 mmol/L (22-30); Chloride 101 mmol/L (98-107); Estimated CRCL calculation 73 ml/min; Estimated Glomerular Filt Rate > 60; Glucose 155 mg/dL (65-110); Potassium 3.7 mmol/L (3.4-5.0); Sodium 135 mmol/L (137-145)
== END 2022-04-21 12:01 | disposition home or self-care (01) | DRG 247 ==
LOC: ANHED 10:53 → ANHICU 11:04 → ANHIMU 04-20 20:42
PROVIDERS: Internal Medicine Cardiovascular Disease; Admitting Provider Specialist; Emergency Provider Emergency Medicine; PCP Family Medicine; Visit Provider Internal Medicine
PROC: 4A023N7 Measurement of Cardiac Sampling and Pressure, Left Heart, Percutaneous Approach (ICD-10-PCS; CPT 93452; principal; 2022-04-19 10:55)
PROC: 027034Z Dilation of Coronary Artery, One Artery with Drug-eluting Intraluminal Device, Percutaneous Approach (ICD-10-PCS; 2022-04-19 10:55)
PROC: 027034Z Dilation of Coronary Artery, One Artery with Drug-eluting Intraluminal Device, Percutaneous Approach (ICD-10-PCS; 2022-04-19 10:55)
DX: I21.3 ST elevation (STEMI) myocardial infarction of unspecified site (principal); I48.92 Unspecified atrial flutter; E11.9 Type 2 diabetes mellitus without complications; G47.33 Obstructive sleep apnea (adult) (pediatric); E78.2 Mixed hyperlipidemia; N52.9 Male erectile dysfunction, unspecified; E55.9 Vitamin D deficiency, unspecified; Z79.84 Long term (current) use of oral hypoglycemic drugs; Z91.199 Patient's noncompliance with other medical treatment and regimen due to unspecified reason; Z99.89 Dependence on other enabling machines and devices
CPT/HCPCS: 36415; 80048; 80053; 80061; 82948; 83036; 83735; 84484; 85025; 85610; 85730; 86850; 86900; 86901; 93005; 93458; 94660; 96374; 99291; A9270; C1725; C1760; C1769; C1874; C1887; C1894; C8929; C9606; G0269; J1644; J2250; J3010; Q9957

== ENCOUNTER 2022-04-21 14:30 | Outpatient (RCR) | payer BC, SELFPAY ==
[2022-03-02 08:26] VITALS: BMI 30.6
[2022-03-02 09:20] VITALS: BMI 30.6
== END 2022-05-17 09:32 | disposition home or self-care (01) ==
LOC: ANHDMC 14:30
PROVIDERS: PCP Family Medicine; Visit Provider Nurse Practitioner
DX: E11.9 Type 2 diabetes mellitus without complications (principal); Z71.3 Dietary counseling and surveillance; Z71.89 Other specified counseling
CPT/HCPCS: 97802; G0108; G0109

== ENCOUNTER 2022-04-23 10:13 | Emergency (ER) | payer BC, SELFPAY ==
[2022-04-23] VITALS (23 sets, daily range): BP systolic 102–140; BP diastolic 68–85; PULSE 87–99; RESP 12–24; TEMP 36.7; O2SAT 97–99
--- NOTE | ~2022-04-23 | XR_ITS ---
XR chest 2V DATE: 04/23/2022 10:43 INDICATION: Shortness of breath, lightheadedness TECHNIQUE: PA and lateral views COMPARISON: None FINDINGS: Normal heart size. No hilar or mediastinal enlargement. No pulmonary infiltrate or consolid ation, pleural effusion or pulmonary vascular congestion or pneumothorax. Mild dextro scoliosis and degenerative spurring of the thoracic spine. IMPRESSION: No active cardiopulmonary disease Reviewed, dictated and finalized at location B. ORK DESIGN ARCHITECT
--- NOTE | 2022-04-23 10:17 | ECG_ITS ---
Measurements Intervals [place] Rate: 95 P: 53 SC: 155 QRS: 33 QRSD: 110 T: -17 QT: 352 QTc: 443 Interpretive Statements SINUS RHYTHM ANTEROLATERAL INFARCT, PROBABLY RECENT HIGH LATERAL INFARCCT, PROBABLY RECENT ABNORMAL ECG COMPARED TO ECG 04/20/2022 10:53:06 NO SIGNIFICANT CHANGES Electronically Signed On 04-23-2022 12:27:34 [employer] by Teddy Renteria D.O.
[2022-04-23 10:32] LABS: Basophils Percent Auto 0.3 % (0.2-1.2); Eosinophils Absolute Auto 0.2 K/mm3 (0-0.3); Eosinophils Percent Auto 2.3 % (0-4.4); Hematocrit 32.5 % (42.0-52.0); Immature Granulocyte Absolute 0.03 K/mm3 (0.00-0.031); Immature Granulocyte Percent A 0.4 % (0-0.5); Lymphocytes Absolute Auto 0.94 K/mm3 (0.9-3.2); Lymphocytes Percent Auto 12.1 % (18.3-44.2); Mean Corpuscular HGB Conc 33.8 g/dl (32-36); Mean Corpuscular Hemoglobin 32.9 pg (26-34); Mean Corpuscular Volume 97.3 fl (80-100); Mean Platelet Volume 10.3 fl (7.4-10.4); Monocytes Absolute Auto 0.7 K/mm3 (0.1-0.6); Monocytes Percent Auto 9.3 % (2.6-8.5); Neutrophils Absolute Auto 5.9 K/mm3 (1.3-6.7); Neutrophils Percent Auto 75.6 % (45.5-73.1); Platelet Count Result 179 k/mm3 (150-375); Red Blood Count 3.34 M/mm3 (4.6-6.20); Red Cell Distribution Width 12.6 % (11.5-14.5); White Blood Count 7.7 K/mm3 (4.5-10.0)
[2022-04-23] MEDS: SODIUM CHLORIDE 0.9% IV 500 ML 999 ML IV CONT (10:35)
--- NOTE | 2022-04-23 10:35 | ED.DIZZY ---
HPI - Dizziness General Chief Complaint: Dizziness <Marianne Dacosta PA-C - Last Filed: 04/23/22 14:12> Stated Complaint: dizzy, SOB <Marianne Dacosta PA-C - Last Filed: 04/23/22 14:12> Time Seen by Provider: 04/23/22 10:16 <Marianne Dacosta PA-C - Last Filed: 04/23/22 14:12> Source: patient <NATIVIDAD Ferrer Last Filed: 04/23/22 14:12> Mode of arrival: EMS <NATIVIDAD Ferrer Last Filed: 04/23/22 14:12> Limitations: no limitations <NATIVIDAD Ferrer Last Filed: 04/23/22 14:12> History of Present Illness HPI Narrative: This is a 62 year old male that presents to the ER for an episode of lightheadedness today. Reports he woke up and took all of his morning medications. About 15 minutes later he sat down to start eating breakfast. He felt very lightheaded and got sweaty. He felt like he was having trouble catching his breath. His gave him a dose of nitro. EMS was called. He was given aspirin in route. He currently reports he feels better and is no longer having any symptoms. He was never experiencing any chest pain or palpitations. He was just discharged from [place] 2 days ago after having a stent placed for a STEMI. Denies fever, cough, chest pain, current shortness of breath, abdominal pain, vomiting, or dysuria. <Marianne Dacosta PA-C - Last Filed: 04/23/22 14:12> Related Data Home Medications: Home Medications Medication Instructions Recorded Confirmed meclizine 25 mg tablet 25 mg PO DAILY PRN Vertigo 12/30/21 04/19/22 cetirizine 5 mg-pseudoephedrine ER 1 tablet PO DAILY PRN Allergy 04/19/22 04/19/22 120 mg tablet,extended Symptoms release,12hr (Zyrtec-D) <NATIVIDAD Ferrer Last Filed: 04/23/22 14:12> Allergies/Adverse Reactions: Allergies Allergy/AdvReac Type Severity Reaction Status Date / Time No Known Allergies Allergy Verified 04/19/22 09:20 <Marianne Dacosta PA-C - Last Filed: 04/23/22 14:12> Review of Systems Review of Systems: CONSTITUTIONAL: Denies fever CARDIOVASCULAR: Denies chest pain, palpitations, or edema. RESPIRATORY: Denies cough GASTROINTESTINAL: Denies abdominal pain, nausea, vomiting GENITOURINARY: Denies dysuria or hematuria. <Marianne Dacosta PA-C - Last Filed: 04/23/22 14:12> All systems reviewed & are unremarkable except as noted in HPI and below <Marianne Dacosta PA-C - Last Filed: 04/23/22 14:12> PMFSH Past Medical History Medical History: Medical History Combined hyperlipidemia Diabetes Erectile dysfunction HANSEL on CPAP Recurrent vertigo Vitamin D deficiency, unspecified <Marianne Dacosta PA-C - Last Filed: 04/23/22 14:12> Family History Family History: Family History Father Acute myocardial infarction <Marianne Dacosta PA-C - Last Filed: 04/23/22 14:12> Social History Social History: Social History Social History: Pt is lives with . Pt is retired. Smoking status: Never smoker Alcohol intake: never Substance use: never Substance use type: marijuana Lack of Transportation: No Lack of Food: Never True Current Housing: I Have Housing Concerned About Future Housing: No Difficulty Paying Gas/Electric Bills: No Difficulty Paying for Meds: No Currently Unemployed: No Education: High School Diploma/GED Difficulty w/ Childcare or Family Care: No Gender identity (if verbalized by the patient): Male Sexual Orientation (if Verbalized by the Patient): Straight or Heterosexual Spiritual care concerns: No Agree to blood products: Yes <Marianne Dacosta PA-C - Last Filed: 04/23/22 14:12> Exam Narrative: GENERAL: Well-appearing, well-nourished, and in no acute distress. HEAD: Normocephalic, atraumatic. EYES: PERRLA and EOMI. ENT: Nares clear, no rhinorrhea or
[2022-04-23 10:45] LABS: Alanine Aminotransferase 99 U/L (6-50); Alkaline Phosphatase 247 U/L (38-126); Anion Gap 13 mmol/L (8-16); Aspartate Amino Transferase 77 U/L (17-59); Bilirubin,Total 0.8 mg/dL (0.2-1.3); Blood Urea Nitrogen 14 mg/dL (9-20); Carbon Dioxide 26 mmol/L (22-30); Chloride 99 mmol/L (98-107); Estimated CRCL calculation 82 ml/min; Estimated Glomerular Filt Rate > 60; Glucose 158 mg/dL (65-110); Potassium 3.3 mmol/L (3.4-5.0); Sodium 138 mmol/L (137-145)
--- NOTE | 2022-04-23 11:30 | PC.NURSE ---
Patient report received from PREAM Mendoza. All questions answered and care of patient assumed. Patient resting comfortably in stretcher with call-light within reach and family at bedside. VSS. Denies CP, dizziness and nausea at this time. Awaiting further orders and disposition.
[2022-04-23 11:45] LABS: Influenza A QL RT-PCR Negative (Negative); Influenza B QL RT-PCR Negative (Negative); SARS-CoV-2 RNA PCR Negative
[2022-04-23] MEDS: POTASSIUM CHLORIDE 20 MEQ TABLET 40 MEQ PO (12:18)
== END 2022-04-23 14:31 | disposition home or self-care (01) ==
PROVIDERS: Physician Assistant; Emergency Provider Emergency Medicine; PCP Family Medicine
DX: R42 Dizziness and giddiness (principal); E11.9 Type 2 diabetes mellitus without complications; Z20.822 Contact with and (suspected) exposure to COVID-19
CPT/HCPCS: 36415; 71046; 80053; 84484; 85025; 87636; 93005; 96360; 99283; A9270; J7040

== ENCOUNTER 2022-04-23 23:44 | Inpatient (IN) | payer BC, SELFPAY ==
--- NOTE | 2022-04-23 23:45 | ECG_ITS ---
Measurements Intervals [place] Rate: 174 P: [place]: 0 QRS: 146 QRSD: 166 T: -33 QT: 279 QTc: 476 Interpretive Statements INTERMITTENT WIDE COMPLEX TACHYCARDIA, CONSIDER VENTRICULAR TACHYCARDIA RIGHT BUNDLE BRANCH BLOCK DURING TACHYCARDIA ABNORMAL ECG COMPARED TO ECG 04/23/2022 10:17:15 WIDE COMPLEX TACHYCARDIA, CONSIDER VENTRICULAR TACHYCARDIA OW PRESENT Electronically Signed On 04-24-2022 8:05:54 TREE FELLER by Teddy Renteria D.O.
[2022-04-23 23:52] VITALS: BP 75/63; PULSE 175; RESP 22; TEMP 36.7; O2SAT 98
[2022-04-24] VITALS (36 sets, daily range): BP systolic 95–124; BP diastolic 65–85; PULSE 72–176; RESP 14–20; TEMP 36.4–36.8; O2SAT 76–99; BMI 29.5
[2022-04-24 00:06] LABS: Basophils Percent Auto 0.3 % (0.2-1.2); Eosinophils Absolute Auto 0.1 K/mm3 (0-0.3); Eosinophils Percent Auto 1.3 % (0-4.4); Hematocrit 30.7 % (42.0-52.0); Hemoglobin 10.6 g/dL (14.0-18.0); Immature Granulocyte Absolute 0.03 K/mm3 (0.00-0.031); Immature Granulocyte Percent A 0.3 % (0-0.5); Lymphocytes Absolute Auto 1.48 K/mm3 (0.9-3.2); Lymphocytes Percent Auto 14.5 % (18.3-44.2); Mean Corpuscular HGB Conc 34.5 g/dl (32-36); Mean Corpuscular Hemoglobin 33.4 pg (26-34); Mean Corpuscular Volume 96.8 fl (80-100); Mean Platelet Volume 10.6 fl (7.4-10.4); Monocytes Absolute Auto 0.7 K/mm3 (0.1-0.6); Monocytes Percent Auto 7.2 % (2.6-8.5); Neutrophils Absolute Auto 7.8 K/mm3 (1.3-6.7); Neutrophils Percent Auto 76.4 % (45.5-73.1); Platelet Count Result 187 k/mm3 (150-375); Red Blood Count 3.17 M/mm3 (4.6-6.20); Red Cell Distribution Width 12.4 % (11.5-14.5); White Blood Count 10.2 K/mm3 (4.5-10.0)
[2022-04-24] MEDS: AMIODARONE 360 MG/D5W 200 ML 360 MG/200 ML BAG 33.33 MG IV CONT (00:06)
[2022-04-24] MEDS: ASPIRIN 81 MG CHEWABLE TABLET 324 MG PO (00:06)
[2022-04-24] MEDS: AMIODARONE 150 MG/D5W 100 ML 150 MG/100 ML BAG 600 MG IV CONT (00:07)
[2022-04-24] MEDS: SODIUM CHLORIDE 0.9% IV 1,000 ML 999 ML IV CONT (00:08)
[2022-04-24 00:11] LABS: Alanine Aminotransferase 166 U/L (6-50); Alkaline Phosphatase 330 U/L (38-126); Anion Gap 17 mmol/L (8-16); Aspartate Amino Transferase 159 U/L (17-59); Bilirubin,Total 0.8 mg/dL (0.2-1.3); Blood Urea Nitrogen 16 mg/dL (9-20); Calcium 9.2 mg/dL (8.4-10.2); Carbon Dioxide 22 mmol/L (22-30); Chloride 100 mmol/L (98-107); Estimated CRCL calculation 66 ml/min; Estimated Glomerular Filt Rate > 60; Glucose 258 mg/dL (65-110); Lipase 189 U/L (23-300); Potassium 3.8 mmol/L (3.4-5.0); Sodium 139 mmol/L (137-145)
[2022-04-24 00:12] LABS: INR 1.3; Prothrombin Time 16.1 Seconds (11.1-14.7)
[2022-04-24 00:13] LABS: Partial Thromboplastin Time 39.2 SECONDS (22.3-36.8)
--- NOTE | 2022-04-24 00:33 | ED.GENADULT ---
HPI - General Adult General Chief complaint: Chest Pain Stated complaint: ams chest pain syncope Time Seen by Provider: 04/23/22 23:45 History of Present Illness HPI narrative: Patient is a 62-year-old gentleman who presents to Emergency Department with a chief complaint of palpitations. Patient was seen in the emergency department earlier today after he had an episode of palpitations and not feeling well. The patient states that he was recently in the hospital after a heart attack had stents and was discharged home. Patient states that he had a event monitor placed on him this afternoon and heart was beating fast and the report by the device was that it was a wide-complex tachycardia the family notified Dr. Shen with cardiology and the patient was instructed to call 911 Related Data Home Medications Medication Instructions Recorded Confirmed meclizine 25 mg tablet 25 mg PO DAILY PRN Vertigo 12/30/21 04/19/22 cetirizine 5 mg-pseudoephedrine ER 1 tablet PO DAILY PRN Allergy 04/19/22 04/19/22 120 mg tablet,extended Symptoms release,12hr (Zyrtec-D) Allergies Allergy/AdvReac Type Severity Reaction Status Date / Time No Known Allergies Allergy Verified 04/19/22 09:20 Review of Systems Review of Systems: A 10 system review of systems was completed on the patient and is negative except for what is stated in the HPI. Nursing and ancillary documentation was reviewed. [facility] Past Medical History Medical History Combined hyperlipidemia Diabetes Erectile dysfunction HANSEL on CPAP Recurrent vertigo Vitamin D deficiency, unspecified Family History Family History Father Acute myocardial infarction Social History Social History Social History: Pt is lives with . Pt is retired. Smoking status: Never smoker Alcohol intake: never Substance use: never Substance use type: marijuana Lack of Transportation: No Lack of Food: Never True Current Housing: I Have Housing Concerned About Future Housing: No Difficulty Paying Gas/Electric Bills: No Difficulty Paying for Meds: No Currently Unemployed: No Education: High School Diploma/GED Difficulty w/ Childcare or Family Care: No Gender identity (if verbalized by the patient): Male Sexual Orientation (if Verbalized by the Patient): Straight or Heterosexual Spiritual care concerns: No Agree to blood products: Yes Exam Narrative: GENERAL: Well-appearing, well-nourished, and in no acute distress. HEAD: Normocephalic, atraumatic. EYES: PERRLA and EOMI. ENT: Nares clear, no rhinorrhea or epistaxis. Mucous membranes moist. NECK: Supple. CHEST: Clear to auscultation. No respiratory distress. HEART: Tachycardic rate and rhythm. No murmur heard. Normal peripheral pulses. ABDOMEN: Soft, nontender, nondistended, normal active bowel sounds. EXTREMITIES: Normal range of motion. No edema. SKIN: Warm, dry, no rash. NEURO: No focal deficits. Alert and oriented x3. PSYCH: Normal mood and affect. Course Course Emergency Course: EKG is wide-complex tachycardia rate of 174 Vital Signs Vital signs: Vital Signs Temperature 36.7 C 04/23/22 23:52 Pulse Rate 175 H 04/23/22 23:52 Respiratory Rate 22 H 04/23/22 23:52 Blood Pressure 75/63 L 04/23/22 23:52 Pulse Oximetry 98 04/23/22 23:52 Temperature 36.8 C 04/24/22 00:02 Pulse Rate 93 04/24/22 01:01 Respiratory Rate 17 04/24/22 01:01 Blood Pressure 107/75 04/24/22 01:01 Pulse Oximetry 94 04/24/22 01:01 Oxygen Delivery Room Air 04/24/22 00:02 Medical Decision Making Vital Signs Vital Signs: Vital Signs Temperature 36.7 C 04/23/22 23:52 Pulse Rate 175 H 04/23/22 23:52 Respiratory Rate 22 H 04/23/22 23:52 Blood Pressure 75/63 L 04/23/22 23:52 Pulse Oximetry 98 04/23/22
[2022-04-24 00:47] LABS: Magnesium 1.8 mg/dL (1.6-2.3)
[2022-04-24] MEDS: MAGNESIUM SULF 2 GM/WATER 50ML 2 GM/50 ML BAG IVPB (01:21)
--- NOTE | 2022-04-24 02:19 | PM.IMHP ---
H&P: HPI History of Present Illness Date/Time: 04/24/22 02:19 Chief Complaint: Diaphoresis, dyspnea, lightheadedness Narrative: Patient is a 62-year-old male past medical history of type 2 diabetes, HANSEL on CPAP, vertigo, hyperlipidemia, recent anterior wall STEMI 04/19/22 s/p JOHNNY mid LAD by Dr. Matthew who presents ED with complaints of chest pain and palpitations. He was hospitalized from 04/19-04/21. During that hospitalization he did have episode of atrial flutter with heart rate going up to 160s and 170s. Patient then converted to normal sinus rhythm. His chads Vasc score of 3 and started on Plavix Eliquis for the flutter and STEMI new JOHNNY. He was discharged with 30 day event monitor. Patient returned 04/23 with episode of lightheadedness, diaphoresis, dyspnea and plan was to discharge with half dose of metoprolol to prevent hypotensive episode. He then returned again late 04/23 with yet again another episode of diaphoresis and palpitations. In the ED: He was found to have atrial flutter and given amiodarone bolus and drip. With patient developing again another episode of atrial flutter will be admitted for observation for atrial flutter. Cardiology follow-up in a.m.. Review of Systems Review of Systems: Constitutional: No Fever, No Chills, No Night Sweats, No Fatigue, No Malaise ENT/Mouth: No Hearing Changes, No Ear Pain, No Nasal Congestion, No Sinus Pain, No Hoarseness, No sore throat, No Rhinorrhea, No Swallowing Difficulty Eyes: No Eye Pain, No Redness, No Vision Changes Cardiovascular: Endorses chest discomfort, diaphoresis, palpitations Respiratory: No Cough, No Sputum, No Wheezing, No Shortness of Breath Gastrointestinal: No Nausea, No Vomiting, No Diarrhea, No Constipation, No Abdominal Pain, No Heartburn, No Hematochezia, No Melena Genitourinary: No Dysuria, No Urinary Frequency, No Hematuria, No Urinary Incontinence, No Urgency Musculoskeletal: No Arthralgias, No Myalgias, No Joint Swelling, No Joint Stiffness, No Back Pain Skin: No Skin Lesions, No Pruritis, No Hair Changes Neuro: No Weakness, No Numbness, No Paresthesias, No Loss of Consciousness, No Syncope, No Dizziness, No Headache Psych: No Anxiety/Panic, No Depression, No Insomnia Heme: No Bruising, No Bleeding Lymph: No Adenopathy Endocrine: No Polyuria, No Polydipsia, No Temperature Intolerance [facility] Past Medical History Medical History Combined hyperlipidemia Diabetes Erectile dysfunction HANSEL on CPAP Recurrent vertigo Vitamin D deficiency, unspecified Family History Family History Father Acute myocardial infarction Social History Social History Social History: Pt is lives with . Pt is retired. Smoking status: Never smoker Alcohol intake: never Substance use: never Substance use type: marijuana Lack of Transportation: No Lack of Food: Never True Current Housing: I Have Housing Concerned About Future Housing: No Difficulty Paying Gas/Electric Bills: No Difficulty Paying for Meds: No Currently Unemployed: No Education: High School Diploma/GED Difficulty w/ Childcare or Family Care: No Gender identity (if verbalized by the patient): Male Sexual Orientation (if Verbalized by the Patient): Straight or Heterosexual Spiritual care concerns: No Agree to blood products: Yes Meds Home Medications and Allergies Home Medications Medication Instructions Recorded Confirmed Type meclizine 25 mg tablet 25 mg PO DAILY PRN Vertigo 12/30/21 04/19/22 History blood sugar diagnostic (PROnoise #50 ea 01/13/22 04/20/22 Rx Ultra Test strips) blood-glucose meter (Zonit Structured SolutionsTouch #1 ea 01/13/22 04/20/22 Rx Ultra2 Meter kit) lancets 30 gauge ([employer] Delica #100 ea 01/13/22 04/20/22 Rx Lancets) metformin 500 mg tablet 1,000 mg
--- NOTE | 2022-04-24 02:35 | ADMGEN ---
This patient, Sesar Alves, was admitted to IMU Room 214-01 on 04/23/22 at 0200. Patient/family oriented to hospital policies and general routines including ID bracelet, bed and alarms, visiting hours, pain management, procedures, bathroom and other care routines, personal items, smoking policy, room service/diet, and visiting hours. Information on how to activate the Rapid Response Team has been discussed. Patient/Family are encouraged to report perceived risks to care and to ask questions if they do not understand what they are told or what they should do.
[2022-04-24] MEDS: AMIODARONE 360 MG/D5W 200 ML 360 MG/200 ML BAG 16.67 MG IV CONT ×2 (06:00→16:33)
--- NOTE | 2022-04-24 09:56 | PM.IMPN ---
Progress Note: A&P Assessment and Plan (1) Atrial flutter: Code(s): I48.92 - Unspecified atrial flutter Status: Acute Assessment and Plan: Currently in sinus rhythm with heart rate of 80. On amiodarone drip, Plavix, Eliquis. Cardiology consult (2) ST elevation (STEMI) myocardial infarction: Code(s): I21.3 - ST elevation (STEMI) myocardial infarction of unspecified site Status: Acute Assessment and Plan: Seen by darkroom worker. Patient is back to sinus rhythm. Continue Plavix and Eliquis. Patient also on metoprolol. and Entresto (3) Diabetes: Qualifiers: Diabetes mellitus type: type 2 Diabetes mellitus nursing home insulin use: without nursing home use Diabetes mellitus complication status: without complication Qualified Code(s): E11.9 - Type 2 diabetes mellitus without complications Code(s): E11.9 - Type 2 diabetes mellitus without complications Status: Acute Assessment and Plan: HBA1c ( goal <7.0%) , Monitor vitamin B12 levels Optimize SALOME-inhibitor and statin Routine glucose monitoring. Watch for Hypoglycemia. BMI goal < 25 (4) HANSEL on CPAP: Code(s): G47.33 - Obstructive sleep apnea (adult) (pediatric); Z99.89 - Dependence on other enabling machines and devices Status: Chronic Assessment and Plan: diet exercise weight loss. Stool studies as outpatient. Subjective Date/time seen: 04/24/22 09:56 Interval history: patient appears comfortable no chest pain or shortness of breath states that he has not had any symptoms of rapid heart rate since he has been in the hospital Exam Narrative: GENERAL: Well appearing, well-nourished, non-toxic, in no acute distress. HEAD: Normocephalic, atraumatic. NECK: Supple. No adenopathy, no masses. RESPIRATORY: Airway patent, respirations nonlabored. Clear to auscultation bilaterally, no rales, rhonchi, wheezing. CARDIOVASCULAR: Regular rate and rhythm without murmurs, rubs, or gallops. Peripheral pulses 2+ and equal bilaterally. ABDOMINAL: Soft, nontender, nondistended, no hepatosplenomegaly. Normoactive BS. MUSCULOSKELETAL: no Epigastric and no hypochondrial tenderness SKIN: Warm, dry, normal color. No rashes. NEURO: A&O X3. Moves all extremities PSYCHIATRIC: Appropriate mood and affect. Normal interaction. Objective Data Vital Signs Vital Signs: Vital Signs - 24 hr 04/24/22 00:02 04/24/22 00:06 04/24/22 00:07 Temperature 36.8 C Pulse Rate 176 H 175 H 175 H Respiratory Rate 14 Blood Pressure 95/75 L 96/75 L 96/75 L Pulse Oximetry 98 Oxygen Delivery Room Air Fraction of Inspired Oxygen 04/24/22 00:23 04/23/22 23:52 04/24/22 00:13 Temperature 36.7 C Pulse Rate 99 175 H 96 Respiratory Rate 22 H 17 Blood Pressure 104/85 75/63 L Pulse Oximetry 98 96 Oxygen Delivery Fraction of Inspired Oxygen 04/24/22 00:28 04/24/22 00:30 04/24/22 00:31 Temperature Pulse Rate 95 96 96 Respiratory Rate 17 17 16 Blood Pressure 106/78 Pulse Oximetry 99 76 L Oxygen Delivery Fraction of Inspired Oxygen 04/24/22 00:45 04/24/22 00:47 04/24/22 01:00 Temperature Pulse Rate 93 93 92 Respiratory Rate 19 19 18 Blood Pressure 105/75 Pulse Oximetry 96 97 97 Oxygen Delivery Fraction of Inspired Oxygen 04/24/22 01:01 04/24/22 02:00 04/24/22 02:03 Temperature 36.5 C Pulse Rate 93 90 90 Respiratory Rate 17 18 18 Blood Pressure 107/75 111/70 Pulse Oximetry 94 98 98 Oxygen Delivery Room Air Fraction of Inspired Oxygen 04/24/22 02:05 04/24/22 03:15 04/24/22 03:15 Temperature Pulse Rate 93 89 89 Respiratory Rate 19 Blood Pressure Pulse Oximetry 94 94 Oxygen Delivery Autopap Autopap Fraction of Inspired Oxygen 04/24/22 03:22 04/24/22 04:00 04/24/22 04:00 Temperature 36.8 C Pulse Rate 89 76 81 Respiratory Rate 19 20 Blood Pressure 106/65 Pulse Oximetry 94 95 Oxygen Delivery CPAP
[2022-04-24] MEDS: SACUBITRIL/VALSARTAN 24-26 MG TABLET 1 TAB PO ×2 (11:32→21:24)
[2022-04-24] MEDS: ATORVASTATIN 40 MG TABLET 80 MG PO (11:32)
[2022-04-24] MEDS: CLOPIDOGREL BISULFATE 75 MG TABLET PO (11:32)
[2022-04-24] MEDS: APIXABAN 5 MG TABLET PO (11:34)
--- NOTE | 2022-04-24 11:34 | PM.CNCAR ---
Assessment and Plan Assessment and plan (1) Wide-complex tachycardia: Code(s): R00.0 - Tachycardia, unspecified Status: Acute Assessment and Plan: Concerning for ventricular tachycardia. Reportedly did have a history of atrial flutter while in the hospital prior to discharge but given his recent [place], cardiomyopathy, it is much more likely this is ventricular tachycardia. I did review with electrophysiology, Dr. Way who agreed that this is ventricular tachycardia. I started Amiodarone 150 mg IV and standard drip per protocol is initiated. Will give KCl 40 mg p.o. x1 as well as magnesium 2 g IV x1 for low K and magnesium. After further discussed with the patient he wishes to be transferred to higher level care facility for electrophysiology evaluation and possible ICD placement. This is reasonable. (2) Atrial flutter: Code(s): I48.92 - Unspecified atrial flutter Status: Acute Assessment and Plan: Will hold Eliquis for now in preparation for possible ICD placement early next week (3) Recent ST elevation myocardial infarction (STEMI): Status: Acute Assessment and Plan: Continue aspirin, Plavix, atorvastatin, metoprolol, Entresto. (4) Ischemic cardiomyopathy: Code(s): I25.5 - Ischemic cardiomyopathy Status: Acute Assessment and Plan: EF 30 35%. Continue current meds. (5) HANSEL on CPAP: Code(s): G47.33 - Obstructive sleep apnea (adult) (pediatric); Z99.89 - Dependence on other enabling machines and devices Status: Chronic (6) Combined hyperlipidemia: Code(s): E78.2 - Mixed hyperlipidemia Status: Chronic Assessment and Plan: On statin (7) Diabetes: Qualifiers: Diabetes mellitus type: type 2 Diabetes mellitus long wall mining machine tender insulin use: without penitentiary use Diabetes mellitus complication status: without complication Qualified Code(s): E11.9 - Type 2 diabetes mellitus without complications Code(s): E11.9 - Type 2 diabetes mellitus without complications Status: Acute Assessment and Plan: Per hospitalist History of Present Illness History of Present Illness Consult date/time: 04/24/22 11:34 Requesting physician: Aaron Delong MD Consult reason: Other (Wide complex tachycardia) Reason For Visit: wide complex tachycardia Narrative: Date of service 04/24/2022 Reason for consultation: Wide complex tachycardia Requesting provider: Dr. Lipsmeyer History: Patient is a 62-year-old male who recently had an anterior ST-elevation myocardial infarction on 04/19/2022 status post drug-eluting stent to the mid LAD by Dr. Matthew. Came to the hospital earlier yesterday because of episodes of lightheadedness and dizziness and diaphoresis. Nothing was seen while in the emergency department he was discharged to home. Prior to being discharged though he came to the office to have a monitor put on. He went home and then had several more episodes presyncope, diaphoresis and dyspnea. They would last for several minutes. Several episodes of sudden onset and sudden offset of symptoms. I was notified by [facility] that the patient had sustained ventricular tachycardia. They did try to contact the patient but there was no answer. I later did get a hold of the . They did call EMS and the patient was brought to the emergency department. While in the ER you did have continued episodes of wide complex tachycardia. He has been started on amiodarone and his rhythm has been stable. There has been no chest pain. No syncope. No paroxysmal nocturnal dyspnea, orthopnea, edema. Review of Systems Review of Systems: All systems reviewed & are unremarkable except as noted in HPI and below Constitutional: Constitutional: Denies body ache(s) Eyes: Eyes: Denies blurry vision ENT: Reports Normal hearing present Cardiovascular: Cardiovascular: Denies chest pain and Reports diaphoresis Respiratory: Respiratory: Scottie
[2022-04-24] MEDS: METOPROLOL SUCCINATE EXT REL 25 MG TABCR PO (13:06)
[2022-04-24] MEDS: ASPIRIN 81 MG CHEWABLE TABLET PO (13:07)
[2022-04-24] MEDS: POTASSIUM CHLORIDE 20 MEQ TABLET 40 MEQ PO (13:08)
--- NOTE | 2022-04-24 15:29 | PM.TDS ---
Transfer Discharge Sum: Prov Provider Date of admission: 04/24/22 00:51 Primary care physician: Fabiola Liu MD Admitting clinician: Jason Lopez DO Consults: 04/24/22 00:52 Consult to Physician Routine Comment: Consulting Provider: Cade Shen Reason for consultation: wide complex tachycardia, recent [place] Has provider been notified: Yes Receiving physician/facility: DR MARINO DS: Admitting Diagnosis Discharge Date 04/24/22 Admitting Diagnosis V TACH DS: Discharge Diagnosis Discharge Diagnosis (1) Ischemic cardiomyopathy: Code(s): I25.5 - Ischemic cardiomyopathy Status: Acute (2) Recent ST elevation myocardial infarction (STEMI): Status: Acute (3) Atrial flutter: Code(s): I48.92 - Unspecified atrial flutter Status: Acute (4) Wide-complex tachycardia: Code(s): R00.0 - Tachycardia, unspecified Status: Acute Transfer Discharge Sum: Med Medications Active and Home Medications: Home Medications meclizine 25 mg tablet 25 mg PO DAILY PRN Vertigo 12/30/21 [History Confirmed 04/24/22] blood sugar diagnostic ([employer] Ultra Test strips) #50 ea 01/13/22 [Rx Confirmed 04/24/22] blood-glucose meter ([employer] Ultra2 Meter kit) #1 ea 01/13/22 [Rx Confirmed 04/24/22] lancets 30 gauge ([employer] Delica Lancets) #100 ea 01/13/22 [Rx Confirmed 04/24/22] metformin 500 mg tablet 1,000 mg PO BIDWMEAL #120 tabs 03/05/22 [Rx Confirmed 04/24/22] cetirizine 5 mg-pseudoephedrine ER 120 mg tablet,extended release,12hr (Zyrtec-D) 1 tablet PO BID PRN Allergy Symptoms 04/19/22 [History Confirmed 04/24/22] apixaban 5 mg tablet (Eliquis) 5 mg PO Q12HR #180 tabs 04/21/22 [Rx Confirmed 04/24/22] atorvastatin 80 mg tablet 80 mg PO DAILY #180 tabs 04/21/22 [Rx Confirmed 04/24/22] clopidogrel 75 mg tablet 75 mg PO QAM #180 tabs 11/16/22 [Rx Confirmed 04/24/22] nitroglycerin 0.4 mg sublingual tablet (Nitrostat) 0.4 mg sublingual Q5MIN PRN Chest Pain #30 tabs 04/21/22 [Rx Confirmed 04/24/22] sacubitril 24 mg-valsartan 26 mg tablet (Entresto) 1 tablet PO BID #90 tabs 04/21/22 [Rx Confirmed 04/24/22] metoprolol succinate 50 mg tablet,extended release 24 hr 25 mg PO QA 04/24/22 [History Confirmed 04/24/22] Active Medications Aspirin (Aspirin 81 Mg Chewable Tablet) 81 mg PO DAILY@0800 [facility] Last Admin: 04/24/22 13:07 Dose: 81 mg Atorvastatin Calcium (Atorvastatin 40 Mg Tablet) 80 mg PO DAILY [facility] Last Admin: 04/24/22 11:32 Dose: 80 mg Clopidogrel Bisulfate (Clopidogrel Bisulfate 75 Mg Tablet) 75 mg PO [facility] Last Admin: 04/24/22 11:32 Dose: 75 mg Amiodarone HCl/Dextrose (Nexterone 360 Mg/D5w 200 Ml) 360 mg in 200 mls @ 16.667 mls/hr IV CONT .Q12H [facility] Last Admin: 04/24/22 06:00 Dose: 0.5 mg/min, 16.67 mls/hr Loratadine/Pseudoephedrine Sulfate (Loratadine/Pseudoephedrine (*Crx) 10/240 Mg Tablet Er 24 Hr) 1 tab PO QAM PRN PRN Reason: ALLERGY SYMPTOMS Meclizine HCl (Meclizine Hcl 25 Mg Tablet) 25 mg PO DAILY PRN PRN Reason: Vertigo Metoprolol Succinate (Metoprolol Succinate Ext Rel 25 Mg Tabcr) 25 mg PO [facility] Last Admin: 04/24/22 13:06 Dose: 25 mg Nitroglycerin (Nitroglycerin Sl 0.4 Mg Tablet) 0.4 mg SUBLINGUAL Q5MIN PRN PRN Reason: Chest Pain Ondansetron HCl (Ondansetron Inj 4 Mg/2 Ml Vial) 4 mg IV PUSH Q4H PRN PRN Reason: Nausea Sacubitril/Valsartan (Sacubitril/Valsartan 24-26 Mg Tablet) 1 tab PO Q12HR [facility] Last Admin: 04/24/22 11:32 Dose: 1 tab Transfer Discharge Sum: Hosp Hospital Course Hospital course: Sesar Alves is a 62 year old male who was admitted to the hospital with rapid heart rate initials had V-tach when the paramedics arrived and then brought to the hospital with signs of atrial flutter patient patient got a dose of a meter on and then converted back to sinus rhythm patient has been seen and evaluated by Cardiology. Concerning for ventricular tachycardia.? Reportedly did have a history of atrial flutter whi
[2022-04-24 15:59] LABS: EDCOVIDSCREEN Negative (Negative)
--- NOTE | 2022-04-24 23:08 | PC.NURSE ---
Spoke with [facility] transfer center and no bed available at this time.
[2022-04-25] VITALS (14 sets, daily range): BP systolic 106–112; BP diastolic 65; PULSE 68–93; RESP 18–20; TEMP 36.2; O2SAT 96–100
[2022-04-25 04:21] LABS: Basophils Percent Auto 0.3 % (0.2-1.2); Eosinophils Absolute Auto 0.2 K/mm3 (0-0.3); Eosinophils Percent Auto 2.7 % (0-4.4); Hematocrit 30.3 % (42.0-52.0); Hemoglobin 10.3 g/dL (14.0-18.0); Immature Granulocyte Absolute 0.01 K/mm3 (0.00-0.031); Immature Granulocyte Percent A 0.2 % (0-0.5); Lymphocytes Absolute Auto 1.39 K/mm3 (0.9-3.2); Lymphocytes Percent Auto 21.9 % (18.3-44.2); Mean Corpuscular Hemoglobin 32.1 pg (26-34); Mean Corpuscular Volume 94.4 fl (80-100); Mean Platelet Volume 10.5 fl (7.4-10.4); Monocytes Absolute Auto 0.5 K/mm3 (0.1-0.6); Monocytes Percent Auto 7.1 % (2.6-8.5); Neutrophils Absolute Auto 4.3 K/mm3 (1.3-6.7); Neutrophils Percent Auto 67.8 % (45.5-73.1); Platelet Count Result 169 k/mm3 (150-375); Red Blood Count 3.21 M/mm3 (4.6-6.20); Red Cell Distribution Width 12.3 % (11.5-14.5); White Blood Count 6.4 K/mm3 (4.5-10.0)
[2022-04-25 04:32] LABS: Anion Gap 8 mmol/L (8-16); Blood Urea Nitrogen 12 mg/dL (9-20); Calcium 8.2 mg/dL (8.4-10.2); Carbon Dioxide 23 mmol/L (22-30); Chloride 107 mmol/L (98-107); Estimated CRCL calculation 92 ml/min; Estimated Glomerular Filt Rate > 60; Glucose 143 mg/dL (65-110); Potassium 3.9 mmol/L (3.4-5.0); Sodium 138 mmol/L (137-145)
[2022-04-25] MEDS: AMIODARONE 360 MG/D5W 200 ML 360 MG/200 ML BAG 16.67 MG IV CONT (06:31)
[2022-04-25] MEDS: ASPIRIN 81 MG CHEWABLE TABLET PO (07:58)
[2022-04-25] MEDS: CLOPIDOGREL BISULFATE 75 MG TABLET PO (07:58)
[2022-04-25] MEDS: ATORVASTATIN 40 MG TABLET 80 MG PO (07:59)
[2022-04-25] MEDS: METOPROLOL SUCCINATE EXT REL 25 MG TABCR PO (07:59)
[2022-04-25] MEDS: SACUBITRIL/VALSARTAN 24-26 MG TABLET 1 TAB PO (07:59)
--- NOTE | 2022-04-25 09:44 | PM.PNCARD ---
Progress Note: A&P Assessment and Plan (1) Wide-complex tachycardia: Code(s): R00.0 - Tachycardia, unspecified Status: Acute Assessment and Plan: Concerning for ventricular tachycardia. Reportedly did have a history of atrial flutter while in the hospital prior to discharge but given his recent [place], cardiomyopathy, it is much more likely this is ventricular tachycardia. I did review with electrophysiology, Dr. Way who agreed that this is ventricular tachycardia. Continue amiodarone. Awaiting placement (2) Atrial flutter: Code(s): I48.92 - Unspecified atrial flutter Status: Acute Assessment and Plan: Will hold Eliquis for now in preparation for possible ICD placement early next week. Will give 1 dose of enoxaparin 1 milligram/kilogram subQ x1 now both because of the history of atrial flutter but also because DVT prophylaxis in addition to recent vague anterior AR and possible LV thrombus risk (3) Recent ST elevation myocardial infarction (STEMI): Status: Acute Assessment and Plan: Continue aspirin, Plavix, atorvastatin, metoprolol, Entresto. (4) Ischemic cardiomyopathy: Code(s): I25.5 - Ischemic cardiomyopathy Status: Acute Assessment and Plan: EF 30 35%. Continue current meds. (5) HANSEL on CPAP: Code(s): G47.33 - Obstructive sleep apnea (adult) (pediatric); Z99.89 - Dependence on other enabling machines and devices Status: Chronic (6) Combined hyperlipidemia: Code(s): E78.2 - Mixed hyperlipidemia Status: Chronic Assessment and Plan: On statin (7) Diabetes: Qualifiers: Diabetes mellitus type: type 2 Diabetes mellitus intermediate frame tender insulin use: without intermediate frame tender use Diabetes mellitus complication status: without complication Qualified Code(s): E11.9 - Type 2 diabetes mellitus without complications Code(s): E11.9 - Type 2 diabetes mellitus without complications Status: Acute Assessment and Plan: Per hospitalist Subjective Date/time seen: 04/25/22 09:44 Interval history: 62-year-old with recent STEMI admitted for presyncope and wide complex tachycardia. Date of service 04/25/2022: He feels well. Had no significant arrhythmia while on amiodarone. Amiodarone continues. No chest pain or shortness of breath. Review of Systems Review of Systems: All systems reviewed & are unremarkable except as noted in HPI and below Constitutional: Constitutional: Denies body ache(s), Reports excessive sweating and Denies fatigue Eyes: Eyes: Denies blurry vision ENT: Reports Normal hearing present Cardiovascular: Cardiovascular: Denies chest pain and Reports diaphoresis Respiratory: Respiratory: Denies chest congestion Gastrointestinal: Gastrointestinal: Denies abdominal pain Genitourinary: Genitourinary: Denies hematuria Musculoskeletal: Musculoskeletal: Denies abnormal gait and Denies back pain Integumentary/Breasts: Skin/Breast: Denies skin pain Neurologic: Reports Normal hearing present, Denies abnormal gait and Denies behavioral changes Psychiatric: Psychiatric: Denies behavioral changes Endocrine: Endocrine: Reports excessive sweating and Denies fatigue Hematologic/Lymphatic: Hematologic/Lymphatic: Denies easy bleeding Allergic/Immunologic: Allergic/Immunologic: Denies GI upset with certain foods Exam Narrative: Patient awake alert and oriented appears to be no acute distress. Appears stated age Const: General: comfortable and no acute distress HENMT: Face/Nose/Sinus: Normal nares present Eyes: Sclera: sclerae normal Neck: Neck: supple Carotids: no bruits Chest: Other: No reproducible chest wall pain to palpation Resp: Effort & Inspection: normal respiratory effort Auscultation: clear to auscultation bilaterally Cardio: Rate: regular rate Rhythm: regular rhythm Heart sounds: no murmurs GI: Inspection: non-distended Auscultation: normal bowel sounds
--- NOTE | 2022-04-25 10:32 | PM.IMPN ---
Progress Note: A&P Assessment and Plan (1) Wide-complex tachycardia: Code(s): R00.0 - Tachycardia, unspecified Status: Acute Assessment and Plan: Concerning for ventricular tachycardia. Reportedly did have a history of atrial flutter while in the hospital prior to discharge but given his recent MO, cardiomyopathy, it is much more likely this is ventricular tachycardia. Continue amiodarone. Awaiting transfer to higher level of care (2) Atrial flutter: Code(s): I48.92 - Unspecified atrial flutter Status: Acute Assessment and Plan: Will hold Eliquis for now in preparation for possible ICD placement early next week. Will give enoxaparin 1 milligram/kilogram subQ bid both because of the history of atrial flutter but also because DVT prophylaxis in addition to recent vague anterior MO and possible LV thrombus risk (3) Recent ST elevation myocardial infarction (STEMI): Status: Acute Assessment and Plan: Continue aspirin, Plavix, atorvastatin, metoprolol, Entresto. (4) Ischemic cardiomyopathy: Code(s): I25.5 - Ischemic cardiomyopathy Status: Acute Assessment and Plan: EF 30 35%. Continue current meds. (5) HANSEL on CPAP: Code(s): G47.33 - Obstructive sleep apnea (adult) (pediatric); Z99.89 - Dependence on other enabling machines and devices Status: Chronic (6) Combined hyperlipidemia: Code(s): E78.2 - Mixed hyperlipidemia Status: Chronic Assessment and Plan: On statin Subjective Date/time seen: 04/25/22 10:32 no complaints at this time Review of Systems Review of Systems: All systems reviewed & are unremarkable except as noted in HPI and below Constitutional: Constitutional: Denies body ache(s), Reports excessive sweating and Denies fatigue Eyes: Eyes: Denies blurry vision ENT: Reports Normal hearing present Cardiovascular: Cardiovascular: Denies chest pain and Reports diaphoresis Respiratory: Respiratory: Denies chest congestion Gastrointestinal: Gastrointestinal: Denies abdominal pain Genitourinary: Genitourinary: Denies hematuria Musculoskeletal: Musculoskeletal: Denies abnormal gait and Denies back pain Integumentary/Breasts: Skin/Breast: Denies skin pain Neurologic: Reports Normal hearing present, Denies abnormal gait and Denies behavioral changes Psychiatric: Psychiatric: Denies behavioral changes Endocrine: Endocrine: Reports excessive sweating and Denies fatigue Hematologic/Lymphatic: Hematologic/Lymphatic: Denies easy bleeding Allergic/Immunologic: Allergic/Immunologic: Denies GI upset with certain foods Exam Narrative: Patient awake alert and oriented appears to be no acute distress. Appears stated age Const: General: comfortable and no acute distress HENMT: Face/Nose/Sinus: Normal nares present Eyes: Sclera: sclerae normal Neck: Neck: supple Carotids: no bruits Chest: Other: No reproducible chest wall pain to palpation Resp: Effort & Inspection: normal respiratory effort Auscultation: clear to auscultation bilaterally Cardio: Rate: regular rate Rhythm: regular rhythm Heart sounds: no murmurs GI: Inspection: non-distended Auscultation: normal bowel sounds Skin: General skin exam: normal color Neuro: Cranial nerves: Yes Normal hearing present Speech: normal speech Extrem: General: normal to inspection Psych: Mental Status: mental status grossly normal Objective Data Vital Signs Vital Signs: Vital Signs - 24 hr 04/24/22 12:36 04/24/22 13:06 04/24/22 12:35 Temperature 97.5 F L Pulse Rate 88 88 90 Respiratory Rate 20 Blood Pressure 124/77 Pulse Oximetry 97 Oxygen Delivery 04/24/22 12:35 04/24/22 14:00 04/24/22 16:33 Temperature Pulse Rate 86 96 Respiratory Rate Blood Pressure 115/74 Pulse Oximetry Oxygen Delivery Room Air 04/24/22 16:36 04/24/22 16:30 04/24/22 16:30 Temperature 98.1 F Pulse Rate 93 91 Re
[2022-04-25] MEDS: ENOXAPARIN 100 MG/ML SYRINGE 90 MG SUB-Q (12:06)
--- NOTE | 2022-04-25 15:30 | PC.NURSE ---
1505: Patient transfered to outside hospital.
== END 2022-04-25 15:05 | disposition short-term general hospital (02) | DRG 309 ==
LOC: ANHED 04-24 00:50 → ANHIMU 04-24 01:37
PROVIDERS: Internal Medicine; Admitting Provider Student in an Organized Health Care Education/Training Program; Emergency Provider Emergency Medicine; PCP Family Medicine; Visit Provider Hospitalist
DX: R00.0 Tachycardia, unspecified (principal); I48.92 Unspecified atrial flutter; I50.42 Chronic combined systolic (congestive) and diastolic (congestive) heart failure; I25.5 Ischemic cardiomyopathy; E11.9 Type 2 diabetes mellitus without complications; G47.33 Obstructive sleep apnea (adult) (pediatric); E78.2 Mixed hyperlipidemia; Z82.49 Family history of ischemic heart disease and other diseases of the circulatory system; Z79.84 Long term (current) use of oral hypoglycemic drugs; Z79.899 Other long term (current) drug therapy; Z95.5 Presence of coronary angioplasty implant and graft
CPT/HCPCS: 36415; 71046; 80048; 80053; 83690; 83735; 84484; 85025; 85610; 85730; 87426; 87636; 93005; 96360; 96365; 96366; 96367; 96368; 96372; 99283; 99285; A9270; C9803; G0378; J0282; J1650; J3475; J7030; J7040

== ENCOUNTER 2022-07-28 06:45 | Outpatient (RCR) | payer BC, SELFPAY | END 2022-09-24 14:22 | disposition home or self-care (01) | LOC: ANHDMC 06:45 | PROVIDERS: PCP Family Medicine; Visit Provider Nurse Practitioner | DX: E11.9 Type 2 diabetes mellitus without complications (principal) | CPT/HCPCS: 99199 ==

== ENCOUNTER → 2023-03-04 14:57 | Outpatient (CLI) | payer BC, SELFPAY ==
--- NOTE | ~2023-03-04 | XR_ITS ---
EXAMINATION: XR wrist LT 2V INDICATION: Left wrist pain TECHNIQUE: Two views of the left wrist are obtained. COMPARISON: None available FINDINGS: No fracture, dislocation, or subluxation. The bones, soft tissues, and joint spaces are nor mal. IMPRESSION: 1. No acute osseous abnormality. Reviewed, dictated and finalized at location F.
== END ==
PROVIDERS: PCP Nurse Practitioner Family; Visit Provider Nurse Practitioner Family
DX: M25.532 Pain in left wrist (principal)
CPT/HCPCS: 73100

== ENCOUNTER 2023-04-27 14:14 | Outpatient (CLI) | payer BC, SELFPAY ==
--- NOTE | ~2023-04-27 | CT_ITS ---
EXAMINATION: CT LE RT wo con DATE: 04/27/2023 14:31 INDICATION: Unspecified injury to the right lower leg with posterior right knee and proximal tibia/fi bular pain TECHNIQUE: High resolution computed tomography (CT) of the right lower leg from above the knee throug h the ankle was performed without intravenous contrast. Additional sagittal and coronal reconstructio ns were performed. Automated exposure control and iterative reconstruction technique were employed. T he dose-length product was 422.17 mGy-cm. COMPARISON: None FINDINGS: Bone alignment is normal. No fracture. There is chondrocalcinosis at the medial and lateral compartme nts of the right knee with small marginal osteophytes all 3 compartments consistent with at least mil d tricompartmental osteoarthritis. Additional subtle chondrocalcinosis and mild osteoarthritis at the right ankle. No erosions or right knee or ankle joint effusions to suggest inflammatory arthritis. E nthesophytes and enthesopathic ossicles at the patellar insertion of the distal quadriceps tendon. Ad ditional small amount of enthesopathic ossification at the distal Achilles tendon. Small Rodriguez's cyst . There appears to be likely tendinopathy and longitudinal split tearing of the peroneus brevis tendo n at the level of the tip of the lateral malleolus however assessment is significantly more limited t tellez with MRI. There are scattered vascular calcifications in the right calf. Soft tissues and muscula ture of the right lower leg and distal thigh are otherwise unremarkable. IMPRESSION: 1. Chondrocalcinosis and mild polyarticular osteoarthritis at the right knee and ankle 2. Suggestion of tendinopathy and longitudinal split tear of the peroneus brevis tendon although asse ssment is significantly more limited on CT than with MRI. 3. Small Rodriguez's cyst. 4. Chronic enthesopathy of the distal quadriceps and Achilles tendons. Reviewed, dictated and finalized at location A. UNTS COLLECTOR IMPRESSION: 1. Chondrocalcinosis and mild polyarticular osteoarthritis at the right knee an d ankle 2. Suggestion of tendinopathy and longitudinal split tear of the peroneus brevi s tendon although assessment is significantly more limited on CT than with MRI. 3. Small Rodriguez's cyst. 4. Chronic enthesopathy of the distal quadriceps and Achilles tendons.
== END 2023-04-27 14:15 ==
LOC: MICIMG 14:15
PROVIDERS: PCP Nurse Practitioner Family; Visit Provider Nurse Practitioner Family
DX: M71.21 Synovial cyst of popliteal space [Baker], right knee (principal); M17.11 Unilateral primary osteoarthritis, right knee
CPT/HCPCS: 73700

== ENCOUNTER 2023-05-19 09:53 | Outpatient (CLI) | payer BC, SELFPAY ==
--- NOTE | 2023-05-19 09:55 | EST_ITS ---
Patient Info Name: Sesar Alves Age: 63 years : 1960 Gender: Male Ht: 68 in Wt: 207 lbs BSA: 2.15 m2 HR: 73 bpm BP: 113 / 72 mmHg Heart Rhythm: Sinus Rhythm Exam Date: 05/19/2023 10:10 AM Exam Location: Echo Lab Patient Status: Outpatient Admit Date: 05/19/2023 Staff Ordering Physician: An Nicole APRN Attending Provider: An Nicole APRN Exercise Technologist: Nydia López CT Nurse: Ellen Wolfe APN Exam Type: CA stress test treadmill Study Info Indications R94.31 - Abnormal electrocardiogram ECG EKG A treadmill exercise stress test was performed. Summary 1. Borderline ST depression - inferior leads. 2. Pseudonormalization of anterolateral T-waves with exercise, consider ischemia. 3. Abnormal flat blood pressure response during stress. 4. Further ischemic evaluation is recommended. Protocol: Josh Stress ECG Details Stage: REST Duration (min): 1 min : 8 sec Speed (mph): 0.0 Grade (%): 0 HR (bpm): 74 SBP (mmHg): 113 DBP (mmHg): 72 METS: --- Stage: REST Duration (min): 8 min : 8 sec Speed (mph): 0.0 Grade (%): 0 HR (bpm): 75 SBP (mmHg): 113 DBP (mmHg): 72 METS: --- Stage: STAGE 1 Duration (min): 1 min : 0 sec Speed (mph): 1.7 Grade (%): 10 HR (bpm): 100 SBP (mmHg): 113 DBP (mmHg): 72 METS: --- Stage: STAGE 1 Duration (min): 2 min : 0 sec Speed (mph): 1.7 Grade (%): 10 HR (bpm): 109 SBP (mmHg): 113 DBP (mmHg): 72 METS: --- Stage: STAGE 1 Duration (min): 3 min : 0 sec Speed (mph): 1.7 Grade (%): 10 HR (bpm): 108 SBP (mmHg): 126 DBP (mmHg): 63 METS: --- Stage: STAGE 2 Duration (min): 1 min : 0 sec Speed (mph): 2.5 Grade (%): 12 HR (bpm): 118 SBP (mmHg): 126 DBP (mmHg): 63 METS: --- Stage: STAGE 2 Duration (min): 2 min : 0 sec Speed (mph): 2.5 Grade (%): 12 HR (bpm): 124 SBP (mmHg): 118 DBP (mmHg): 62 METS: --- Stage: STAGE 2 Duration (min): 3 min : 0 sec Speed (mph): 2.5 Grade (%): 12 HR (bpm): 128 SBP (mmHg): 118 DBP (mmHg): 62 METS: --- Stage: STAGE 3 Duration (min): 0 min : 23 sec Speed (mph): 3.4 Grade (%): 14 HR (bpm): 135 SBP (mmHg): 115 DBP (mmHg): 61 METS: --- Stage: RECOVERY Duration (min): 0 min : 36 sec Speed (mph): 0.0 Grade (%): 0 HR (bpm): 129 SBP (mmHg): 115 DBP (mmHg): 61 METS: --- Stage: RECOVERY Duration (min): 1 min : 36 sec Speed (mph): 0.0 Grade (%): 0 HR (bpm): 103 SBP (mmHg): 115 DBP (mmHg): 61 METS: --- Stage: RECOVERY Duration (min): 2 min : 36 sec Speed (mph): 0.0 Grade (%): 0 HR (bpm): 79 SBP (mmHg): 115 DBP (mmHg): 61 METS: --- Stage: RECOVERY Duration (min): 3 min : 36 sec Speed (mph): 0.0 Grade (%): 0 HR (bpm): 85 SBP (mmHg): 115 DBP (mmHg): 61 METS: --- Stage: RECOVERY Duration (min):
== END 2023-05-19 09:54 | disposition home or self-care (01) ==
LOC: ANHCARD 09:53
PROVIDERS: PCP Nurse Practitioner Family; Visit Provider Nurse Practitioner Family
DX: R94.31 Abnormal electrocardiogram [ECG] [EKG] (principal); R93.1 Abnormal findings on diagnostic imaging of heart and coronary circulation
CPT/HCPCS: 93017

== ENCOUNTER 2023-10-20 10:09 | Outpatient (CLI) | payer BC, SELFPAY ==
--- NOTE | ~2023-10-20 | US_ITS ---
EXAMINATION: US asp injection ganglion cyst DATE: 10/20/2023 10:53 INDICATION: Right knee pain and Rodriguez's cyst TECHNIQUE: The procedure including the risks and benefits was discussed with the patient. Risks discu ssed included bleeding and infection. The patient understood the risks and agreed to proceed. The sk in overlying the popliteal fossa the right knee was prepped and draped in usual sterile fashion. Ane sthetic was administered with 1% lidocaine subcutaneously. A 18 gauge needle was advanced under ultr asound guidance into the moderate-sized Rodriguez's cyst. Fluid was aspirated until the Rodriguez's cyst with decompressed. The needle was removed and a sterile bandage applied. There were no immediate complic ations. FINDINGS: Ultrasound images demonstrate the needle tip within the moderate-sized right Rodriguez's cyst. The Rodriguez's cyst is completely decompressed on the final image. A total of 4 mm of viscus clear yello wish fluid was aspirated. IMPRESSION: 1. Successful ultrasound-guided right Rodriguez's cyst aspiration yielding 4 mL of viscous clear yellow f luid. Reviewed, dictated and finalized at location A. IMPRESSION: 1. Successful ultrasound-guided right Rodriguez's cyst aspiration yielding 4 mL of viscous clear yellow fluid.
== END 2023-10-20 10:10 | disposition home or self-care (01) ==
LOC: ANHIMG 10:13
PROVIDERS: PCP Family Medicine; Visit Provider Nurse Practitioner Family
DX: M71.21 Synovial cyst of popliteal space [Baker], right knee (principal)
CPT/HCPCS: 20612

== ENCOUNTER 2023-11-02 08:31 | Outpatient (CLI) | payer BC, SELFPAY ==
--- NOTE | 2023-11-02 | EST_ITS ---
Patient Info Name: Sesar Alves Age: 63 years : 1960 Gender: Male Ht: 68 in Wt: 200 lbs BSA: 2.11 m2 HR: 90 bpm BP: 120 / 75 mmHg Heart Rhythm: Sinus Rhythm Exam Date: 11/02/2023 9:24 AM Exam Location: Echo Lab Patient Status: Outpatient Admit Date: 11/02/2023 Staff Ordering Physician: Kelvin, Alexandru Mosqueda Attending Provider: Kelvin, Alexandru Mosqueda Exercise Technologist: Nydia López CT Exercise Physician: Cade Shen MD Exam Type: CA stress dax w NM Study Info Indications I25.10 - Atherosclerotic heart disease of [place] coronary artery without angina pectoris A regadenoson stress test was performed. Summary 1. Please correlate with nuclear medicine images, reported separately. 2. No abnormal ST-T wave changes with lexiscan. 3. The Stress and supervising and interpreting physician is Dr. Cade Shen. Protocol: Lexiscan Stress ECG Details Stage: REST Duration (min): 1 min : 9 sec HR (bpm): 69 SBP (mmHg): 106 DBP (mmHg): 76 Stage: REST Duration (min): 10 min : 36 sec HR (bpm): 73 SBP (mmHg): 106 DBP (mmHg): 76 Stage: STAGE 1 Duration (min): 1 min : 0 sec HR (bpm): 76 SBP (mmHg): 120 DBP (mmHg): 75 Stage: RECOVERY Duration (min): 1 min : 0 sec HR (bpm): 91 SBP (mmHg): 120 DBP (mmHg): 75 Stage: RECOVERY Duration (min): 2 min : 0 sec HR (bpm): 94 SBP (mmHg): 120 DBP (mmHg): 75 Stage: RECOVERY Duration (min): 3 min : 0 sec HR (bpm): 86 SBP (mmHg): 90 DBP (mmHg): 58 Stage: RECOVERY Duration (min): 3 min : 30 sec HR (bpm): 83 SBP (mmHg): 101 DBP (mmHg): 64 Rest HR: 73 bpm Peak HR: 94 bpm Rest Sys BP: 106 mmHg Peak Sys BP: 120 mmHg Max Pred HR: 158 bpm % Max Pred HR: 59 % Target HR: 134 bpm Max RPP: 11,280 bpm*mmHg Target HR Summary: Hemodynamic response to exercise was normal BP Response: Normal blood pressure response Termination Reason: Completed protocol Cardiac Symptoms: Dyspnea Total Time: 1 min : 0 sec Rest Duran BP: 76 mmHg Peak Duran BP: 75 mmHg Total Dose: 0.4 mg Resting ECG Normal sinus rhythm. Anteroseptal myocardial infarction, old. Nonspecific T-wave abnormality. Abnormal ECG. Stress ECG No abnormal ST/T wave changes with exercise. Non-diagnostic ECG response due to resting abnormalities. Arrhythmias None. Report Signatures Amended by Cade Shen on 11/02/2023 10:23
--- NOTE | ~2023-11-02 | NM_ITS ---
EXAMINATION: NM dax stress w perfusion DATE: 11/02/2023 12:15 INDICATION: Coronary artery disease of [place] artery. TECHNIQUE: Rest images were obtained following intravenous administration of 9.5 mCi Tc99m tetrofosmi n (Myoview). The patient was infused intravenously with Lexiscan (regadenoson). Then, 31.2 mCi Tc99m tetrofosmin (Myoview) was administered intravenously, and stress images were obtained. Data was recon structed into short axis and horizontal and vertical long axis SPECT images. Gated SPECT images were also obtained. COMPARISON: None. FINDINGS: There is a large, severe, fixed perfusion defect involving left ventricular apex, the apica l segments, and mid anterior and mid anterolateral segments, consistent with infarct. No reversible c omponent to suggest ischemia.. There is no segmental wall motion abnormality. Left ventricular ejec tion fraction measures 51%. IMPRESSION: 1. Large area of severe infarct involving left ventricular apex, the apical segments, and mid anterio r and mid anterolateral segments. 2. Left ventricular ejection fraction measuring 51%. Reviewed, dictated and finalized at location A. IMPRESSION: 1. Large area of severe infarct involving left ventricular apex, the apical seg ments, and mid anterior and mid anterolateral segments. 2. Left ventricular ejection fraction measuring 51%.
== END 2023-11-02 08:32 | disposition home or self-care (01) ==
PROVIDERS: PCP Family Medicine
DX: I25.10 Atherosclerotic heart disease of native coronary artery without angina pectoris (principal)
CPT/HCPCS: 78452; 93017; A9502; J2785

== ENCOUNTER 2024-12-25 09:44 | Outpatient (CLI) | payer BC, SELFPAY ==
--- OUTSIDE RECORDS SUMMARY | 2024-12-25 09:49 | XMS_ITS | Referral Summary ---
Author Organization [facility] [address] Address [address] [place] [address] Care Team Providers Care Mold Maintenance Technician Name Role Phone Fabiola Liu MD Primary Care Provider Murray Brown MD Unavailable [phone] Alexandru Warren MD Unavailable Encounters Date Type Department Care Team Description 11/19/2024 Orders Only Arrhythmia [facility] [address] [facility] [address] [place] [address] Martin Benson III, MD VT (ventricular tachycardia) (HCC) (Primary Dx) 11/19/2024 10:15 AM CDT Ancillary Procedure Arrhythmia [facility] [address] [facility] [address], [place] [address] AICD (automatic cardioverter/defibrilla tor) present (Primary Dx); VT (ventricular tachycardia) (HCC) 11/05/2024 Telephone [facility] Cardiology [address] [facility] [address] [place] [address] Alexandru Warren MD Cardiac clearance 11/01/2024 Telephone [facility] Cardiology [address] [facility] [place] [address] [place] [address] Alexandru Warren MD Cardiac Rehab form 10/26/2024 Results Follow-Up [facility] Cardiology [address] [place] [address] [address] [place] [address] Alexandru Warren MD Cardiac Catheterization 10/24/2024 10:50 AM CDT - 10/24/2024 12:10 PM CDT Surgery [facility] [address] [place] [phone] Salomon Pulliam MD LEFT HEART CATHETERIZATION WITH CORONARY ANGIOGRAPHY AND WITH OR WITHOUT LEFT VENTRICULOGRAM [id number] 10/24/2024 8:30 AM CDT - 10/24/2024 3:39 PM CDT Hospital Encounter [facility] [address] [place] [phone] Salomon Pulliam MD S/P drug eluting coronary stent placement (Primary Dx); Unstable angina pectoris (HCC) Discharge Disposition: Discharge to home or self care 10/23/2024 Telephone [facility] Cardiology [address] [place] [address] [address] [place] [address] Salomon Pulliam MD Prep Instructions/Arrival Time 10/16/[address], [place] [address] Alexandru Warren MD Cath Scheduling 10/16/2024 Results Follow-Up [facility] Cardiology [address] [place] [address] [address] [place] [address] Alexandru Warren MD NM MPI SPECT (Rest and/or Stress) Multiple Studies 10/16/2024 Telephone [facility] Cardiology [address] [place] [address] [address] [place] [address] Alexandru Warren MD PROCEDURE SCHEDULING 10/15/2024 7:56 AM CDT - 10/15/2024 11:59 PM CDT Hospital Encounter [facility] OP Cardiac Testing [address] [place] [address] [address] [place] [address] Discharge Disposition: Discharge to home or self care 10/15/2024 7:56 AM CDT - 10/15/2024 11:59 PM CDT Hospital Encounter [facility] OP Cardiac Testing [address] [facility] [address] [place] [address] 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; Chronic systolic CHF (congestive heart failure) (HCC) Discharge Disposition: Discharge to home or self care 10/11/2024 Telephone [facility] Cardiology [address] [facility] [address] [place] [address] Alexandru Warren MD 10/01/2024 Nurse Triage [facility] Cardiology [address] [place] [address] [address], [place] [address] Alexandru Warren MD 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 (Primary Dx); Chronic systolic CHF (congestive heart failure) (HCC) 09/27/2024 Telephone [facility] Cardiology [address] [facility] [address] [place] [address] Alexandru Warren MD Cardiac Clearance from Last 3 Months Allergies No known active allergies Medications metFORMIN (GLUCOPHAGE) 1,000 mg tablet Take 1 tablet (1,000 mg total) by mouth 2 (two) times a day with meals Active nitroglycerin (NITROSTAT) 0.[address] 1 tablet (0.4 mg total) under the tongue every 5 (five) minutes as needed for chest pain Active OneTouch Delica Plus Lancet [facility] 2 Active aspirin 81 mg enteric coated tablet Take 1 tablet (81 mg total) by mouth daily 30 tablet 11 3 Active cetirizine-pseud oephedrine ER (ZyrTEC-D) 5-120 mg per 12 hr tablet Take 1 tablet by mouth as needed for allergies Active levothyroxine (SYNTHROID) 50 mcg tablet Take 1 tablet (50 mcg total) by mouth reimbursement rep before breakfast Active glipiZIDE XL (GLUCOTROL XL) 5 mg 24 hr tablet Take 1 tablet (5 mg total) by mouth daily 4 Active spironolactone (ALDACTONE) 25 mg tablet TAKE 1 TABLET(25 MG) BY MOUTH DAILY 90 tablet 1 4 Active sacubitriL-valsa rtan (Entresto) 49-51 mg tablet Take 1 tablet by mouth 2 (two) times a day 60 tablet 3 5 Active metoprolol XL (TOPROL-XL) 100 mg 24 hr tablet Take 1.5 tablets (150 mg total) by mouth daily 90 tablet 3 5 Active clopidogreL (PLAVIX) 75 mg tablet TAKE 1 TABLET(75 MG) BY MOUTH DAILY 90 tablet 3 5 Active furosemide (LASIX) 20 mg tablet Take 1 tablet (20 mg total) by mouth every other day 45 tablet 3 5 Active dapagliflozin propanediol (FARXIGA) 10 mg tablet Take 1 tablet (10 mg total) by mouth daily 90 tablet 3 5 Active rosuvastatin (CRESTOR) 40 mg tablet Take 1 tablet (40 mg total) by mouth daily 30 tablet 11 5 10/31/19 26 Active Active Problems Problem Noted Date Diagnosed Date Unstable angina pectoris 10/16/2024 Hypotension due to drugs 09/26/2023 Overview (09/26/2023): Hypotension due to drugs Pure hypercholesterolemia 09/26/2023 Overview (09/26/2023): Pure hypercholesterolemia Ventricular arrhythmia 09/26/2023 Overview (09/26/2023): Ventricular arrhythmia Acute on chronic congestive heart failure 2022 SOB (shortness of breath) 07/08/2022 Congestive heart failure (CHF) 05/18/2022 ST elevation (STEMI) myocardial infarction 05/18 Type 2 diabetes mellitus 05/18/2022 VT (ventricular tachycardia) 04/25/2022 Assessment & Plan (11/24/2022 8:49 AM CDT): Currently quiet shortly after stopping amiodarone. 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 Given young age, long-term use should be avoided if possible. Counseled pt regarding risk of recurrent VT/ICD shocks OFF amiodarone. I offered catheter VT ablation in order to minimize risk of recurrent shocks. I reviewed the procedural steps, risks/benefits and recovery in detail. Elevated risk for procedural complication due to severe cardiomyopathy. He understands and wishes to proceed. --Ventricular tachycardia ablation w/anesthesia, Stereotaxis --Continue metoprolol XL 100 mg daily --Remain OFF amiodarone. I messaged the patient's PCP for assistance with thyroid management. --Continue remote device f/u via [employer] Assessment & Plan (09/14/2022 9:35 AM CDT): Stable. No recurrent VT after recent hospitalization. Dual ICD interrogated today. Excellent device function, no arrhythmias. Discussed VT management options with patient. Offered VT ablation to avoid usp amiodarone use. Pt is interested. We will reduce amiodarone dose today, observe, and consider ablation at next visit. --Decrease amiodarone to 200 mg PO once daily --Continue metoprolol XL 50 mg daily --Check LFTs, TSH, BMP, CBC, INR today Coronary artery disease 04/19/2022 Immunizations Immunization Administration Dates Next Due Influenza, Unspecified 04/06/2022 Social History Tobacco Use Types Packs/Day Years Used Date Smoking Tobacco: Never Smokeless Tobacco: Never Tobacco Cessation:Counseling Given: Not Answered Social Connection and Isolat ion Panel [NHANES] Answer Date Recorded In a typical week, how many times do you talk on the phone with family, friends, or neighbors? More than three times a week 05/03/2022 How often do you get togethe r with friends or relatives? More than three times a week 05/03/2022 How often do you attend [employer]ur [employer] or judaism services? Never 05/03/2022 Do you belong to any clubs o r organizations such as anabaptist groups, unions, fraternal or athletic groups, or school groups? Yes 05/03/2022 How often do you attend meet ings of the clubs or organizations you belong to? 1 to 4 times per year 05/03/2022 Are you , , di vorced, , never , or living with a partner? 05/03/2022 AUDIT-C Answer Date Recorded Q1: How often do you have a drink containing alc ohol? 2-3 times a week 05/21/2022 Average Number of Drinks Not on file 022 Q3: How often do you have si x or more drinks on one occasion? Never 05/21/2022 Overall Financial Resource Strain (CARDIA) Answe r Date Recorded How hard is it for you to pa y for the very basics like food, housing, medical care, and heating? Not very hard 05/03/2022 Hunger Vital Sign Answer Date Recorded Within the past 12 months, y ou worried that your food would run out before you got the money to buy more. Never true 05/03/20 Within the past 12 months, t he food you bought just didn't last and you didn't have money to get more. Never true 05/03/2022 PRAPARE - Transportation Answer Date Re corded In the past 12 months, has l ack of transportation kept you from medical appointments or from getting medications? No 04/07 In the past 12 months, has l ack of transportation kept you from meetings, work, or from getting things needed for daily living? No 05/03/2022 Personal Safety Answer Date Recorded Have you ever been in or are you currently in a harmful physical or emotional relationship or is someone making you feel afraid or unsafe? 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 Gender Identity Not on file Sexual Orientation Not on file Last Filed Vital Signs Vital Sign Reading Time Taken Comments Blood Pressure 101/59 10/24/2024 2:20 PM CDT Pulse 64 10/24/2024 2:20 PM CDT Temperature 36.2 C (97.2 F) 10/24/2024 9:03 AM CDT Respiratory Rate 26 10/24/2024 2:20 PM CDT Oxygen Saturation 96% 10/24/2024 2:20 PM CDT Inhaled Oxygen Concentration - - Weight 88.7 kg (195 lb 9.6 oz) 10/24/2024 9:03 A M CDT Height 172.7 cm (5' 8) 10/24/2024 9:03 AM CDT Body Mass Index 29.74 10/24/2024 9:03 AM CDT Plan of Treatment Not on file Medical Devices Implanted Type Area Tractor Drill Operator Device Identifier Shelf Expiration Date Model / Serial / Lot [employer] Nadiya Dynagen Enduralife Easyview Hf Perspectiv 5.37x7.68cm 2 Chamber D152 - [id number] - [id number] Implanted:Qty: 1 on 04/27/2022 by Murray Brown MD at [facility] ICD [employer] Nadiya [id number] 07/07/2023 D152 / [id number] / [employer] Nadiya [place] 4-Front 64cm Dual-Coil Active Fixation Icd Lead 0676 - [id number] - [id number] Implanted:Qty: 1 on 04/27/2022 by Murray Brown MD at [facility] Lead [employer] Nadiya [id number] 07/31/2023 0676 / [id number] / [employer] Nadiya Lead 7841 Endocardial Pacing Mr Is-1 Bipolar Connection 7841 - [id number] - [id number] Implanted:Qty: 1 on 04/27/2022 by Murray Brown MD at [facility] Lead [employer] Nadiya [id number] 03/29/2024 7841 / [id number] / [employer] Stent Coronary De Rx Cocr Ors Msn 2.89m99aq [id number] - S0 - [id number] Implanted:Qty: 1 on 10/24/2024 by Salomon Pulliam MD at [facility] Stent [employer] 08/26/2027 [id number] / [id number] / [id number] [employer] Device Closure Vascade Od5 Fr Femoral Artery [id number] - [id number] - [id number] Implanted:Qty: 1 on 12/27/2022 by Martin Benson III, MD at [facility] Vascular Closure Device Left: Femoral Vein [employer] 06/10/2024 [id number] X-05U / [id number] / [id number] [employer] Vascade Mvp 6-12fr Venous Closure [id number] - [id number] - [id number] Implanted:Qty: 1 on 12/27/2022 by Martin Benson III, MD at [facility] Vascular Closure Device Left: Femoral Vein [employer] 09/14/2024 800-612C -10U / [id number] / [id number] [employer] Vascade Mvp 6-12fr Venous Closure [id number] - [id number] - [id number] Implanted:Qty: 1 on 12/27/2022 by Martin Benson III, MD at [facility] Vascular Closure Device Right: Femoral Vein [employer] 09/14/2024 800-612C -10U / [id number] / [id number] [employer] Vascade Mvp 6-12fr Venous Closure [id number] - [id number] - [id number] Implanted:Qty: 1 on 12/27/2022 by Martin Benson III, MD at [facility] Vascular Closure Device Right: Femoral Vein [employer] 09/14/2024 800-612C -10U / [id number] / [id number] [employer] Closure Repair Femoral Artery Suture Mediated Perclose Prostyle 58750-07 - S0 - [id number] Implanted:Qty: 1 on 10/24/2024 by Salomon Pulliam MD at [facility] Vascular Closure Device [employer] 09/03/2026 [id number] / [id number] / [id number] Procedures Procedure Name Priority Date/Time Associated Diagnosis Comments DEVICE CHECK - REMOTE Routine 11/19/2024 10:29 AM CDT VT (ventricular tachycardia) (HCC) ECG 12-LEAD Routine 10/24/2024 11:50 AM CDT POCT ACTIVATED CLOTTING TIME, HIGH RANGE Routine 10/24/2024 11:14 AM CDT LEFT HEART CATHETERIZATION WITH CORONARY ANGIOGRAPHY AND WITH AND WITHOUT LEFT VENTRICULOGRAM Routine 10/24/2024 11:12 AM CDT Unstable angina pectoris (HCC) ECG 12-LEAD STAT 10/24/2024 9:15 AM CDT Unstable angina pectoris (HCC) EGFR STAT 10/24/2024 9:05 AM CDT Unstable angina pectoris (HCC) DIFFERENTIAL AUTO STAT 10/24/2024 9:0 5 AM CDT Unstable angina pectoris (HCC) PROTIME-INR STAT 10/24/2024 9:05 AM CDT Unstable angina pectoris (HCC) CBC WITH AUTO DIFFERENTIAL STAT 10/24/2024 9:05 AM CDT Unstable angina pectoris (HCC) BASIC METABOLIC PANEL STAT 10/24/2024 9:05 AM CDT Unstable angina pectoris (HCC) NM MPI SPECT (REST AND/OR STRESS) MULTIPLE STUDIES Schedule Routine, Read Routine (OP Routine) 10/15/2024 11:00 AM CDT 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 ICD CHECK (REMOTE) Patient ID: Baldev Markham is a 64 y.o. male This patient received a Trivop ICD. They had a remote transmission on 11/19/2024. Device implant indications: VT Interrogation of the patient's device demonstrates the following: Presenting EGM: A sense V sense @ 66 bpm Original Device Settings Right Atrium Right Ventricle Sensitivity (mV) 0.25 mV 0.3 mV Pacing Outputs 2.5 V @ 0.4 ms 2.5 V @ 0.4 ms Testing Measurements Right Atrium Right Ventricle Sensitivity (mV) 1.8 mV 6.9 mV Impedence (Ohms) 565 ohms 353 ohms High Voltage Impedence 49 ohms Pace Threshold Not done V @ ms Not done V @ ms Pacing % 0 % 0 % Battery Status: 10.5 years to CA with Charge Time 10.4 seconds Episodes last 90 days/Comments: AF [place] <1% Five ventricular episodes classified as VT-1 and nonsustained VT. No EGMs available for review. VT-1 episodes in the 130s and nonsustained VT episodes in the 120s to 130s. NORMAL DEVICE FUNCTION PROGRAMMED Medications: Anti-coagulant(s): Aspirin 81 mg, Plavix 75 mg Anti-arrhythmic(s): Toprol-XL 150 mg daily PLAN: 1) [employer] ICD evaluation. 2) [employer] remote transmission scheduled in 3 months. 3) Programming appropriate for device measurements Lora Lane RN us Martin Benson III, MD CV CARDIAC SERVICES PROCEDURES Final Result * ECG 12 lead (10/24/2024 11:50 AM CDT) 10/24/2024 11:5 0 AM CDT Narrative [facility] - 10/24/2024 11:03 PM CDT Vent Rate: 68 bpm RR Interval: 876 msec MN Interval: 191 msec QRS Duration: 109 msec QT Interval: 433 msec QTC Interval: 450 msec P-R-T [place]: 55 - 2 - 91 degrees IMPRESSION: SINUS RHYTHM LOW QRS VOLTAGE IN PRECORDIAL LEADS ANTEROLATERAL MYOCARDIAL INFARCTION ABNORMAL ECG Electronically Signed By: Alexandru Warren MD [facility] us Salomon Pulliam MD ECG ORDERABLES Final Re sult [facility] * (ABNORMAL) POC Activated Clotting Time, High Range (10/24/2024 11:14 AM CDT) ACT 178(H) 87 - 138 sec POC Performer [id number] [facility] Blood 10/24/2024 11:1 4 AM CDT 10/24/2024 11:14 AM CDT us Salomon Pulliam MD LAB BLOOD ORDERABLES Fin al Result [facility] [address] [facility] Department [place] [address] * LEFT HEART CATHETERIZATION WITH CORONARY ANGIOGRAPHY AND WITH AND WITHOUT LEFT VENTRICULOGRAM (10/24/2024 11:12 AM CDT) Anatomical Region Laterality Modality X-Ray Angiograph y Narrative 10/24/2024 3:45 PM CDT Images from the original result were not included. [facility] Cardiology [address] [id number], [address] Left Heart Catheterization Procedure Report 64 year old male with ischemic CMP, CAD prior PCI with recurrent typical angina and lateral ischemia referred for left heart catheterization. Access:6 [place]an RFA Catheter:CLS 4.0, JR 4, and JL 4 Closure:Perclose Anticoagulation:59685 Units Heparin, Clopidogrel, and Aspirin Contrast:65 ml Optiray Sedation:2 mg Versed, 50 mcg fentanyl Specimens: none Estimated blood loss: minimal Surgeon: Salomon Pulliam MD Procedures performed: Left heart catheterization Post Operative Diagnosis Post Op Dx: Obstructive CAD Procedural details: After risks, benefits, and alternatives to the procedure were explained to the patient, they agreed to proceed. After signing informed consent the patient was brought to the cardiac catheterization laboratory. There were prepped and draped in sterile fashion. A 6 Zimbabwean sheath was inserted in the Right Femoral Artery using the modified Seldinger technique. We then performed selective coronary angiography using various catheters. We then crossed the aortic valve and measured pressures. At completion of the case a Perclose was deployed with good hemostasis achieved. The patient tolerated the procedure well with no complaints and was transferred to the floor for further monitoring and care. Coronary Findings: LMT: No disease LAD: Large caliber vessel giving rise to one diagonal branch before terminating at the apex. There is a patent stent, 30% mid. LCX: Large caliber, non-dominant vessel giving rise to 1 major OM branch. There is a 90% proximal to mid stenosis. RCA: Large caliber, dominant vessel giving rise to a PDA and rPL branches. There is mild diffuse disease 30-40%. Hemodynamic Findings: LV: 110/12 mm Hg Ao: 110/70 mm Hg PCI details: Using a 6 [place]an EBU 4 guide catheter, we advanced a Silvio Blue wire to the distal LCx. We pre-dilated the lesion with a 2.0 mm NC balloon, then a 2.25 mm NC. We performed IVUS showing severe atherosclerosis. We then stented with a 2.25 mm x 30 mm Osiro drug eluting stent, after which we post dilated with a 2.5 mm NC balloon up to a maximum of 18 miranda. Intracoronary nitroglycerin was given for vasospasm. Final angiography revealed no evidence of dissection or perforation. There was SIERRA 3 flow and 0% residual stenosis. Conclusions: 1) Successful IVUS guided PCI of the proximal to mid LCx/OM using 2.25 mm x 30 mm Osiro drug eluting stent with SIERRA-III flow and 0% residual stenosis post-intervention. Recommendations: - 600mg Clopidogrel given in the labor relations specialist. Continue DAPT for at least 6 months without interruption. - Continue to optimize medical therapy and reduce atherosclerotic risk factors. Further management per the medicine and cardiology teams. Salomon Pulliam MD 10/24/2024 11:23 AM [facility] PCI RISK CALCULATOR PCI INDICATIONS Stable Angina PCI STATUS [] Elective [] Urgent [] Emergency [] Salvage CARDIOVASCULAR INSTABILITY [] Persistent Ischemic Symptoms (Chest Pain, STEMI) [] Hemodynamic Instability [] Ventricular Arrhythmias [] Acute Heart Failure [] Cardiogenic Shock [] Salvage or Refractory Cardiogenic Shock CARDIAC ARREST [] NO [] YES AND RESPONSIVE [] YES AND UNRESPONSIVE FRAILTY [] Moderately Frail [] Severely Frail [] Very Severely Frail [] Terminally Ill OTHER PATIENT CHARACTERISTICS [] At Least Moderate Aortic Stenosis [] Surgical Turn Down CONGESTIVE HEART FAILURE (NYHA Classification) [] I [] II [] III [] IV STRESS TEST: EXTENT OF ISCHEMIA [] Low Risk (<1% annual risk of or MD) [] Intermediate Risk (1-3% annual risk of or MD [x] High Risk (>3% annual risk of or MD) 1. Severe resting LV dysfunction (LVEF <35%) not readily explained by noncoronary causes LESION CHARACTERISTICS (HIGH RISK Type C LESIONS) [x] Diffuse Length (> 2 cm) [] Excessive Tortuosity of Proximal Segment [] Extremely Angulated Segments > 90 degrees [] Bifurcation Lesion (with the inability to protect major side branches) [] Degenerated Vein Grafts with Friable Segments [] Chronic Total Occlusion (> 3 mos) and/or bridging collaterals OTHER HIGH RISK CHARACTERISTICS [] In-Stent Thrombosis [] Heavily Calciified [] High Risk Coronary Segment (LEFT MAIN OR PROX LAD) us Alexandru Warren MD CV CARDIAC CATH PROCEDURES Final Result * ECG 12 lead (10/24/2024 9:15 AM CDT) 10/24/2024 9:15 AM CDT Narrative [facility] - 10/24/2024 10:36 PM CDT Vent Rate: 72 bpm RR Interval: 832 msec MN Interval: 190 msec QRS Duration: 97 msec QT Interval: 405 msec QTC Interval: 429 msec P-R-T [place]: 51 - -4 - 93 degrees IMPRESSION: SINUS RHYTHM INFERIOR MYOCARDIAL INFARCTION , PROBABLY OLD [40+ ms Q WAVE AND/OR ST/T ABNORMALITY IN II/aVF] ANTEROLATERAL MYOCARDIAL INFARCTION , PROBABLY RECENT [40+ ms Q WAVE IN I/aVL/V3-V6] ABNORMAL ECG Electronically Signed By: Alexandru Warren MD [facility] us Salomon Pulliam MD ECG ORDERABLES Final Re sult [facility] * eGFR (10/24/2024 9:05 AM CDT) Pathologist [facility] eGFR >90 >=60 mL/min/1. 73 m2 Comment: Interpretive Data Reference Interval Normal >/= 90 mL/min/1.73m2 Mildly decreased* 60 - 89 mL/min/1.73m2 Mildly to moderately decreased 45 - 59 mL/min/1.73m2 Moderately to severely decreased 30 - 44 mL/min/1.73m2 Severely decreased 15 - 29 mL/min/1.73m2 Kidney Failure < 15 mL/min/1.73m2 *Relative to young adult level Estimated glomerular filtration rate is determined by the 2020 CKD-EPI equation recommended by the National Kidney Foundation (A Unifying Approach to GFR Estimation: Recommendations of the NKF-ASK Task Force on Reassessing the Inclusion of Race in Diagnosing Kidney Disease, JASN 2020). The CKD-EPI equation should not be used for patients with unstable renal function and has not been validated in children and those over 70. Current interpretive data was last reviewed 2021. Blood 10/24/2024 9:0 5 AM CDT 10/24/2024 9:08 AM CDT us Salomon Pulliam MD LAB BLOOD ORDERABLES Fin al Result [facility] [address] Department [place] [address] * Differential, auto (10/24/2024 9:05 AM CDT) [facility] Neutrophil abs 4.82 1.50 - 6.50 K/cumm Imm gran abs 0.03 0.00 - 0.10 K/cumm [facility] Lymphocyte abs 1.42 0.80 - 3.30 K/cumm [facility] Monocyte abs 0.48 0.20 - 0.80 K/cumm [facility] Eosinophil abs 0.30 0.00 - 0.50 K/cumm [facility] Basophil abs 0.03 0.00 - 0.10 K/cumm [facility] Neutrophil pct 68.1 % [facility] Comment: Interpretive Data Percent cell count reference ranges are not reported, since discordance with absolute values may lead to misinterpretation of CBC data. Current Interpretive Data was last revised on 2017. Imm gran pct 0.4 % [facility] Comment: Interpretive Data Percent cell count reference ranges are not reported, since discordance with absolute values may lead to misinterpretation of CBC data. Current Interpretive Data was last revised on 2017. Lymphocyte pct 20.1 % [facility] Comment: Interpretive Data Percent cell count reference ranges are not reported, since discordance with absolute values may lead to misinterpretation of CBC data. Current Interpretive Data was last revised on 2017. Monocyte pct 6.8 % [facility] Comment: Interpretive Data Percent cell count reference ranges are not reported, since discordance with absolute values may lead to misinterpretation of CBC data. Current Interpretive Data was last revised on 2017. Eosinophil pct 4.2 % [facility] Comment: Interpretive Data Percent cell count reference ranges are not reported, since discordance with absolute values may lead to misinterpretation of CBC data. Current Interpretive Data was last revised on 2017. Basophil pct 0.4 % [facility] Comment: Interpretive Data Percent cell count reference ranges are not reported, since discordance with absolute values may lead to misinterpretation of CBC data. Current Interpretive Data was last revised on 2017. Blood 10/24/2024 9:05 AM CDT 10/24/2024 9:08 AM CDT us Salomon Pulliam MD LAB BLOOD ORDERABLES Fin al Result [facility] [address] Department [place] [address] * (ABNORMAL) CBC with auto differential (10/24/2024 9:05 AM CDT) WBC 7.08 3.80 - 9.90 K/cumm Hgb 13.7 13.0 - 17.5 g/dL [facility] Hct 40.0 38.9 - 50.3 % [facility] Plt 162 150 - 400 K/cumm [facility] MPV 10.3 9.1 - 12.3 fL [facility] RBC 4.25(L) 4.30 - 5.80 M/cumm [facility] MCV 94.1 81.3 - 96.4 fL [facility] MCH 32.2 27.1 - 33.3 pg [facility] MCHC 34.3 32.3 - 35.7 g/dL [facility] RDW CV 12.7 11.1 - 14.9 % [facility] RDW SD 43.6 35.7 - 48.1 fL [facility] NRBC abs 0.00 0.00 - 0.01 K/cumm [facility] Blood 10/24/2024 9:05 AM CDT 10/24/2024 9:08 AM CDT Narrative [facility] - 10/24/2024 9:14 AM CDT If most recent labs were drawn prior to 4 AM, draw only prior to initiating procedure. us Salomon Pulliam MD LAB BLOOD ORDERABLES Fin al Result Performing Organization Address City/[facility] Co de Phone Number [facility] [address] Department [place] [address] * Protime-INR (10/24/2024 9:05 AM CDT) PT 10.1 9.7 - 13.0 sec INR 0.94 0.90 - 1.20 [facility] Comment: Interpretive data Oral anticoagulant therapeutic ranges: Venous thromboembolism prophylaxis or treatment: 2.0-3.0 CARDIOLOGY Standard range: 2.0-3.0 High-intensity range: 2.5-3.5 Refer to indication-specific guidelines for appropriate target ranges for prosthetic heart valve replacement. Current interpretive data was last revised on 2019. Blood 10/24/2024 9:05 AM CDT 10/24/2024 9:08 AM CDT Salomon Pulliam MD LAB BLOOD ORDERABLES Fin al Result Performing Organization Address City/[facility]/ZIP Co de Phone Number [facility] [address] Department [place] [employer] [place] [address] * (ABNORMAL) Basic metabolic panel (10/24/2024 9:05 AM CDT) Sodium 142 135 - 145 mmol/L Potassium, pl 4.2 3.3 - 4.9 mmol/L [facility] Chloride 106 97 - 110 mmol/L [facility] CO2 21(L) 22 - 32 mmol/L [facility] Anion gap 15 2 - 15 mmol/L [facility] BUN 20 6 - 25 mg/dL [facility] Creatinine 0.86 0.80 - 1.30 mg/dL [facility] Glucose 130 70 - 199 mg/dL [facility] Comment: Interpretive Data Fasting glucose >/= 126 mg/dl is diagnostic for diabetes. Fasting is defined as no caloric intake for at least 8 hours. Fasting glucose between 100 mg/dl to 125 mg/dl is diagnostic of prediabetes. In a patient with classic symptoms of hyperglycemia or hyperglycemic crisis, a random glucose >/= 200 mg/dl is diagnostic for diabetes. In the absence of unequivocal hyperglycemia, results should be confirmed by repeat testing. The classification and Diagnosis of Diabetes Diabetes Care 2021; 46: S19-S40. Current interpretive data was last revised 2022. Calcium 9.3 8.5 - 10.3 mg/dL [facility] Blood 10/24/2024 9:05 AM CDT 10/24/2024 9:08 AM CDT us Salomon Pulliam MD LAB BLOOD ORDERABLES Fin al Result Performing Organization Address [facility]/ZIP Co de Phone Number [facility] [address] Department [place] [address] * NM MPI SPECT (Rest and/or Stress) Multiple Studies (10/15/2024 11:00 AM CDT) Anatomical Region Laterality Modality Body N/A Nuclear Medicine 10/15/2024 8:30 AM CDT Narrative 10/15/2024 1:21 PM CDT [facility] [address] [place] [address] MPI Imaging Report Patient Name: BALDEV MARKHAM M : 1960 (64y 7m) Gender: M Study Date: 10/15/2024 08:30:00 AM Ht(Inch): Wt(Lb): BSA: Tech: Order Provider: ALEXANDRU WARREN Heart Rate: 133 BMI: Ref Provider: ALEXANDRU WARREN PROCEDURES: Exercise SPECT Report.: Myocardial Perfusion Imaging at rest and post exercise. 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 FINDINGS: Procedure Data: One day rest/stress protocol was used with IV site located at left arm. Sestamibi injected IV at rest was 8.5 millicuries Rest SPECT imaging was performed 30 minutes post injection. Sestamibi injected IV at peak exercise was 25.6 millicuries Stress SPECT Gated imaging was performed 30 minutes post exercise. TID: 1.05 Protocol - Josh Protocol. Exercise Time: 07:30 Resting HR 70 bpm Peak HR: 142 bpm Predicted Maximal HR 157 bpm Target HR: 133 bpm Percent Max Predicted HR Achieved: 90 % Baseline BP: 122/71 Peak BP: 142/48 METS achieved: 9.1 Rate-Pressure Product: 21064 BPM*mmHg Max ST: Angina Index (0=No angina during exercise, 1=non-limiting angina, 2=exercise limited angina): 1 Performed By: HEATH Talavera. Supervising Physician: The Supervising Physician is Jonathan Garcia MD. Reason for Termination: Fatigue and chest pressure rated 7-8/10 at peak exercise. Chest pressure resolved by end recovery phase. Exercise Tolerance: Average exercise capacity. Resting ECG: Normal sinus rhythm. Inferiolateral Q waves concerning for prior infarction. Poor R wave progression. Nonspecific T wave abnormality. Post EC mm or more downsloping inferior ST depression. Arrhythmia: No arrhythmias seen. Target HR Achieved: Target heart rate was achieved. Cardiac Symptoms With Stress: Symptoms with stress were Chest pain rated 7-8/10 at peak exercise. Chest pain resolved by end of recovery stage and dyspnea. BP Response: Blood pressure response is flat. Defect 1: Location of defect is in the mid anterior segment, apical anterior segment and apex segment. Size is large. Severity is severe. Reversibility is not present, defect is fixed. Type of defect is infarction. Defect 2: Location of defect is in the basal inferior segment, mid inferior segment and apical inferior segment. Size is large. Severity is moderate to severe in intensity. Reversibility is not present, defect is fixed. Type of defect is most likely attenuation artifact. Defect 3: Location of defect is in the basal anterolateral segment, mid anterolateral segment and apical lateral segment. Size is moderate. Severity is moderate. Reversibility is full. Type of defect is ischemia. LV Function: There is moderate LV dysfunction. Ejection Fraction is estimated to be 34 %. CONCLUSIONS: 1. Average exercise capacity for age. 2. Moderate LV dysfunction; EF 34% by gated SPECT. 3. Maximal exercise nuclear stress test that is positive for moderate ischemia in the lateral wall. Electronically Signed By: Alexandru Warren MD [facility] 10/15/2024 1:20:56 PM CDT Procedure Note Alexandru Warren MD - 10/15/2024 [facility] [address] [place] [id number] MPI Imaging Report Patient Name: BALDEV MARKHAM M : 1960 (64y 7m) Gender: M Study Date: 10/15/2024 08:30:00 AM Ht(Inch): Wt(Lb): BSA: Tech: Order Provider: ALEXANDRU WARREN Heart Rate: 133 BMI: Ref Provider: ALEXANDRU WARREN PROCEDURES: Exercise SPECT Report.: Myocardial Perfusion Imaging at rest and postexercise. 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 FINDINGS: Procedure Data: One day rest/stress protocol was used with IV site located at leftarm. Sestamibi injected IV at rest was 8.5 millicuries Rest SPECT imaging was performed 30 minutes post injection. Sestamibi injected IV at peak exercise was 25.6 millicuries Stress SPECT Gated imaging was performed 30 minutes post exercise. TID: 1.05 Protocol - Josh Protocol. Exercise Time: 07:30 Resting HR 70 bpm Peak HR: 142 bpm Predicted Maximal HR 157 bpm Target HR: 133 bpm Percent Max Predicted HR Achieved: 90 % Baseline BP: 122/71 Peak BP: 142/48 METS achieved: 9.1 Rate-Pressure Product: 64830 BPM*mmHg Max ST: Angina Index (0=No angina during exercise, 1=non-limiting angina,2=exercise limited angina): 1 Performed By: HEATH Talavera. Supervising Physician: The Supervising Physician is Jonathan Garcia MD. Reason for Termination: Fatigue and chest pressure rated 7-8/10 at peakexercise. Chest pressure resolved by end recovery phase. Exercise Tolerance: Average exercise capacity. Resting ECG: Normal sinus rhythm. Inferiolateral Q waves concerning forprior infarction. Poor R wave progression. Nonspecific T wave abnormality. Post EC mm or more downsloping inferior ST depression. Arrhythmia: No arrhythmias seen. Target HR Achieved: Target heart rate was achieved. Cardiac Symptoms With Stress: Symptoms with stress were Chest pain rated7-8/10 at peak exercise. Chest pain resolved by end of recovery stage and dyspnea. BP Response: Blood pressure response is flat. Defect 1: Location of defect is in the mid anterior segment, apicalanterior segment and apex segment. Size is large. Severity is severe. Reversibility is notpresent, defect is fixed. Type of defect is infarction. Defect 2: Location of defect is in the basal inferior segment, midinferior segment and apical inferior segment. Size is large. Severity is moderate to severe inintensity. Reversibility is not present, defect is fixed. Type of defect is mostlikely attenuation artifact. Defect 3: Location of defect is in the basal anterolateral segment, midanterolateral segment and apical lateral segment. Size is moderate. Severity ismoderate. Reversibility is full. Type of defect is ischemia. LV Function: There is moderate LV dysfunction. Ejection Fraction isestimated to be 34 %. CONCLUSIONS: 1. Average exercise capacity for age. 2. Moderate LV dysfunction; EF 34% by gated SPECT. 3. Maximal exercise nuclear stress test that is positive for moderateischemia in the lateral wall. Electronically Signed By: Alexandru Warren MD [facility] 10/15/2024 1:20:56 PM CDT Alexandru Warren MD IMG NM PROCEDURES Final Res ult * POCT lipid panel (09/18/2024 8:39 AM CDT) HDL, POC 30 mg/dL Triglycerides, POC 142 mg/dL LDL Cholesterol POC 41.6 mg/dL Cholesterol Total, POC 100 mg/dL Capillary blood 09/18/2024 8 :39 AM CDT Alexandru Warren MD POINT OF CARE TEST ORDERABL ES Final Result * (ABNORMAL) Hemoglobin A1c (09/16/2022 1:24 PM CDT) Hgb A1C 6.2(H) <5.7 % of total Hgb [facility] Comment: For someone without known diabetes, a hemoglobin A1c value between 5.7% and 6.4% is consistent with prediabetes and should be confirmed with a follow-up test. For someone with known diabetes, a value <7% indicates that their diabetes is well controlled. A1c targets should be individualized based on duration of diabetes, age, comorbid conditions, and other considerations. This assay result is consistent with an increased risk of diabetes. Currently, no consensus exists regarding use of hemoglobin A1c for diagnosis of diabetes for children. Blood 09/16/2022 1:24 PM CDT 09/16/2022 1:25 PM CDT Narrative [facility] - 09/17/2022 12:36 AM CDT FASTING:YES FASTING: YES us Alexandru Warren MD LAB BLOOD ORDERABLES Final Result [facility] [address] [place] [address] from Last 3 Months or Most Recently Relevant to Health Maintenance [place] Advance Directives For more information, please contact: [phone] * Full Code (Latest Code Status on File) Date Activated Date Inactivated Comments 05/01/2022 4:42 PM 05/07/2022 9:51 PM * Full Code Date Activated Date Inactivated Comments 04/25/2022 4:42 PM 04/28/2022 3:44 PM Care Teams Mold Maintenance Technician Relationship Specialty Start Date End Date Fabiola Liu MD PCP - General Family Practice 04/19/22 Murray Brown MD [address] [address] Consulting Physician Cardiology 04/28/22 Alexandru Warren MD [address] [address] Education Analyst Cardiology 05/10/22
--- OUTSIDE RECORDS SUMMARY | 2024-12-25 09:49 | XMS_ITS | Clinical Summary ---
Author Organization [facility] [address] Address [address] [place] [address] Care Team Providers Care Technical Service Rep Name Role Phone Fabiola Liu MD Primary Care Provider Murray Brown MD Unavailable [phone] Alexandru Warren MD Unavailable [phone] Allergies No known active allergies Medications metFORMIN (GLUCOPHAGE) 1,000 mg tablet Take 1 tablet (1,000 mg total) by mouth 2 (two) times a day with meals Active nitroglycerin (NITROSTAT) 0.[address] 1 tablet (0.4 mg total) under the tongue every 5 (five) minutes as needed for chest pain Active OneTouch Delica Plus Lancet 30 gauge misc 2 Active aspirin 81 mg enteric coated tablet Take 1 tablet (81 mg total) by mouth daily 30 tablet 11 3 Active cetirizine-pseud oephedrine ER (ZyrTEC-D) 5-120 mg per 12 hr tablet Take 1 tablet by mouth as needed for allergies Active levothyroxine (SYNTHROID) 50 mcg tablet Take 1 tablet (50 mcg total) by mouth compressor battery pellets before breakfast Active glipiZIDE XL (GLUCOTROL XL) [...] with patient. Offered VT ablation to avoid termite control representative amiodarone use. Pt is interested. We will reduce amiodarone dose today, observe, and consider ablation at next visit. --Decrease amiodarone to 200 mg PO once daily --Continue metoprolol XL 50 mg daily --Check LFTs, TSH, BMP, CBC, INR today Coronary artery disease 04/19/2022 Encounters Date Type Department Care Team Description 11/19/2024 10:15 AM CDT Ancillary Procedure [facility] [address] [place] [address] [address], [place] [address] AICD (automatic cardioverter/defibrilla tor) present (Primary Dx); VT (ventricular tachycardia) (HCC) 11/19/2024 Orders Only [facility] [address] [place] [address] [address], [place] [address] Martin Benson III, MD VT (ventricular tachycardia) (HCC) (Primary Dx) 11/05/2024 Telephone [facility] [address] [place] [address] Alexandru Warren MD Cardiac clearance 11/01/2024 Telephone [facility] [address] [place] [address] Alexandru Warren MD Cardiac Rehab form 10/26/2024 Results Follow-Up [facility] [address] [place] [address] Alexandru Warren MD Cardiac Catheterization 10/24/2024 10:50 AM CDT - 10/24/2024 12:10 PM CDT Surgery [facility] [address] [place] [phone] Salomon Pulliam MD LEFT HEART CATHETERIZATION WITH CORONARY ANGIOGRAPHY AND WITH OR WITHOUT LEFT VENTRICULOGRAM [id number] 10/24/2024 8:30 AM CDT - 10/24/2024 3:39 PM CDT Hospital Encounter [facility] [address] [place] [phone] Salomon Pulliam MD S/P drug eluting coronary stent placement (Primary Dx); Unstable angina pectoris (HCC) Discharge Disposition: Discharge to home or self care 10/23/2024 Telephone [facility] [address] [place] [address], [place] [address] Salomon Pulliam MD Prep Instructions/Arrival Time 10/16/2024 Telephone [facility] [address] [place] [address] [address], [place] [address] Alexandru Warren MD Cath Scheduling 10/16/2024 Results Follow-Up [facility] [address] [place] [phone] Alexandru Warren MD NM MPI SPECT (Rest and/or Stress) Multiple Studies 10/16/2024 Telephone [facility] [address] [place] [address] [address] [place] [address] Alexandru Warren MD PROCEDURE SCHEDULING 10/15/2024 7:56 AM CDT - 10/15/2024 11:59 PM CDT Hospital Encounter [facility] Cardiac Testing [address] [place] [address] [address] [place] [address] Discharge Disposition: Discharge to home or self care 10/15/2024 7:56 AM CDT - 10/15/2024 11:59 PM CDT Hospital Encounter [facility] Cardiac Testing [address] [place] [address] Coronary artery disease of rappahannock artery of [place] heart with stable angina pectoris; Chronic systolic CHF (congestive heart failure) (HCC) Discharge Disposition: Discharge to home or self care 10/11/2024 Telephone [facility] [address] [place] [address] Alexandru Warren MD 10/01/2024 Nurse Triage [facility] [address] [place] [address] Alexandru Warren MD Coronary artery disease of rapp[place] artery of [place] heart with stable angina pectoris (Primary Dx); Chronic systolic CHF (congestive heart failure) (HCC) 09/27/2024 Telephone [facility] [address] [place] [address] Alexandru Warren MD Cardiac Clearance from Last 3 Months Immunizations Immunization Administration Dates Next Due Influenza, Unspecified 04/06/2022 Surgical History Surgery Date Site/Laterality Comments CARDIAC DEFIBRILLATOR PLACEMENT CORONARY STENT PLACEMENT 04/19/2022 CARDIAC CATHETERIZATION 10/24/2024 N/A Procedure: LEFT HEART CATHETERIZATION WITH CORONARY ANGIOGRAPHY AND WITH OR WITHOUT LEFT VENTRICULOGRAM [id number]; Surgeon: Salomon Pulliam MD; Location: [facility] [employer]; Service: Cardiovascular; Laterality: N/A; Medical devices from this surgery are in the Medical Devices section. Medical History Medical History Date Comments ST elevation (STEMI) myocardial infarction (HCC) 04/19/2022 Type 2 diabetes mellitus (HCC) Congestive heart failure (CHF) (HCC) Coronary artery disease 04/19/2022 VT (ventricular tachycardia) ([facility]) Family History Medical History Relation Name Comments Coronary artery disease Brother 1 Heart attack Brother 1 Heart attack Father No Known Problems Maternal Grandfather No Known Problems Maternal Grandmother Supraventricular tachycardia Mother Heart attack Paternal Grandfather No Known Problems Paternal Grandmother No Known Problems Sister 1 No Known Problems Sister 2 No Known Problems Sister 3 No Known Problems Sister 4 Relation Name Status Comments Brother 1 Alive Brother 2 Alive Brother 3 Alive Father (Age 47) Maternal Grandfather Maternal Grandmother Mother (Age 94) Paternal Grandfather (Age 52) Paternal Grandmother Sister 1 Alive Sister 2 Alive Sister 3 Alive Sister 4 Alive Social History Tobacco Use Types Packs/Day Years [...] 05/03/2022 How often do you attend chur ch or protestant services? Never 05/03/2022 Do you belong to any clubs o r organizations such as samaritan groups, unions, fraternal or athletic groups, or [...] money to buy more. 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 Gender Identity Not on file Sexual Orientation Not on file Obstetrics History Last Filed Vital Signs Vital Sign Reading [...] 10/24/2024 9:03 AM CDT Plan of Treatment Health Maintenance Due Date Last Done Comments Albumin Creatinine Ratio, Urine 1960 Colon Cancer Screening-Colonoscopy 1960 Depression Screening 1960 Hepatitis C Screening 1960 Prostate Cancer Screening-PSA 1960 Dilated Eye Exam 1960 Foot Exam 1961 Hepatitis B Screening 1979 Regular Well Visit/Exam 18-64 1979 Pneumococcal vaccine <65 (1 of 2 - PCV) 02/23/1980 Zoster Vaccine (2 of 2) 02/24/2022 12/30/2021 Hemoglobin A1C 03/18/2023 09/16/2022 Covid-19 Vaccine (4 - 2023-2 5 season) 2024 05/24/2021, 09/23/2020, 09/02/2020 Influenza Vaccine (Season Ended) 2025 04/06/2022, 05/24/2021, 03/08/2017 Lipid Panel 09/18/2025 09/18/2024, 09/05, 09/16/2022, Additional history exists eGFR 10/24/2025 10/24/2024, 12/04, 09/16/2022, Additional history exists DTaP/Tdap/Td Vaccine (2 - Td or Tdap) 12/31/2031 12/30/2021 Medical Devices Implanted Type Area Lay Out Worker Device Identifier Shelf Expiration Date Model / Serial / Lot [employer] Nadiya Dynagen Enduralife Easyview Hf Perspectiv 5.37x7.68cm 2 Chamber D152 - [id number] - [id number] Implanted:Qty: 1 on 04/27/2022 by Murray Brown MD at [facility] ICD [employer] N[employer]ya [id number] 07/07/2023 D152 / [id number] / [employer] Nadiya [place] 4-Front 64cm Dual-Coil Active Fixation Icd Lead 0676 - [id number] - [id number] Implanted:Qty: 1 on 04/27/2022 by Murray Brown MD at [facility] Lead [employer] N[employer]ya [id number] 07/31/2023 0676 / [id number] / [employer] Nadiya Lead 7841 Endocardial Pacing Mr Is-1 Bipolar Connection 7841 - [id number] - [id number] Implanted:Qty: 1 on 04/27/2022 by Murray Brown MD at [facility] Lead [employer] N[employer]ya [id number] 03/29/2024 7841 / [id number] / [employer] Stent Coronary De Rx Cocr Ors Msn 2.72i48rm [id number] - S0 - [id number] Implanted:Qty: 1 on 10/24/2024 by Salomon Pulliam MD at [facility] Stent [employer] 08/26/2027 [id number] / [id number] / [id number] [employer] Device Closure Vascade Od5 Fr Femoral Artery [id number] - [id number] - [id number] Implanted:Qty: 1 on 12/27/2022 by Martin Benson III, MD at [facility] Vascular Closure Device Left: Femoral Vein [employer] 06/10/2024 700-500D X-05U / [id number] / [id number] [employer] Vascade Mvp 6-12fr Venous Closure [id number] - [id number] - [id number] Implanted:Qty: 1 on 12/27/2022 by Martin Benson III, MD at [facility] Vascular Closure Device Left: Femoral Vein [employer] 09/14/2024 800-612C -10U / [id number] / [id number] [employer] Vascade Mvp 6-12fr Venous Closure [id number] - [id number] - [id number] Implanted:Qty: 1 on 12/27/2022 by Martin Benson III, MD at [facility] Vascular Closure Device Right: Femoral Vein [employer] 09/14/2024 800-612C -10U / [id number] / [id number] [employer] Vascade Mvp 6-12fr Venous Closure [id number] - [id number] - [id number] Implanted:Qty: 1 on 12/27/2022 by Martin Benson III, MD at [facility] Vascular Closure Device Right: Femoral Vein [employer] 09/14/2024 800-612C -10U / [id number] / [id number] [employer] Closure Repair Femoral Artery Suture Mediated Perclose Prostyle 26102-26 - S0 - [id number] Implanted:Qty: 1 on 10/24/2024 by Salomon Pulliam MD at [facility] Vascular Closure Device [employer] 09/03/2026 [id number] / 0 / [id number] Procedures Procedure Name Priority Date/Time Associated Diagnosis [...] 11:00 AM CDT Coronary artery disease of [place] artery of [place] heart with stable angina pectoris Chronic systolic CHF (congestive heart failure) (HCC) POCT LIPID PANEL Routine 09/18/2024 8:39 AM CDT Coronary artery disease of [place] artery of [place] heart with stable angina pectoris HEMOGLOBIN A1C [...] 64 y.o. male This patient received a [employer] ICD. They had a remote transmission on [...] 10.4 seconds Episodes last 90 days/Comments: AF Bryant <1% Five ventricular episodes classified as VT-1 and nonsustained VT. No EGMs available for review. VT-1 episodes in the 130s and nonsustained VT episodes in the 120s to 130s. NORMAL DEVICE FUNCTION PROGRAMMED Medications: Anti-coagulant(s): Aspirin 81 mg, Plavix 75 mg Anti-arrhythmic(s): Toprol-XL 150 mg daily PLAN: 1) [employer] ICD evaluation. 2) [employer] remote transmission scheduled in 3 months. 3) Programming appropriate for device measurements Lora Lane RN Martin Benson III, MD CV CARDIAC SERVICES PROCEDURES Final Result * ECG 12 lead (10/24/2024 11:50 AM CDT) 10/24/2024 11:5 0 AM CDT Narrative [facility] - 10/24/2024 11:03 PM CDT Vent Rate: 68 bpm RR Interval: 876 msec MO Interval: 191 msec QRS Duration: 109 msec QT Interval: 433 msec QTC Interval: 450 msec P-R-T Timber: 55 - 2 - 91 degrees IMPRESSION: SINUS RHYTHM LOW QRS VOLTAGE IN PRECORDIAL LEADS ANTEROLATERAL MYOCARDIAL INFARCTION ABNORMAL ECG Electronically Signed By: Alexandru Warren MD [facility] us Salomon Pulliam MD ECG ORDERABLES Final Re sult [facility] * (ABNORMAL) POC Activated Clotting Time, High Range (10/24/2024 11:14 AM CDT) ACT 178(H) 87 - 138 sec POC Performer [id number] [facility] Blood 10/24/2024 11:1 4 AM CDT 10/24/2024 11:14 AM CDT us Salomon Pulliam MD LAB BLOOD ORDERABLES Fin al Result Performing Organization Address City/[facility] Co de Phone Number [address] Department [place] [address] * LEFT HEART CATHETERIZATION WITH CORONARY ANGIOGRAPHY AND WITH AND WITHOUT LEFT VENTRICULOGRAM (10/24/2024 11:12 AM CDT) Anatomical Region Laterality Modality X-Ray Angiograph y Narrative 10/24/2024 3:45 PM CDT Images from the original result were not included. [facility] [id number], [address] Left Heart Catheterization Procedure Report 64 year old male with ischemic CMP, CAD prior PCI with recurrent typical angina and lateral ischemia referred for left heart catheterization. Access:6 [place]an RFA Catheter:CLS 4.0, JR 4, and JL 4 Closure:Perclose Anticoagulation:98046 Units Heparin, Clopidogrel, and Aspirin Contrast:65 ml [...] and draped in sterile fashion. A 6 Chilean sheath was inserted in the Right Femoral [...] mm Hg PCI details: Using a 6 [place]an EBU 4 guide catheter, we advanced a [...] Recommendations: - 600mg Clopidogrel given in the laborer road. Continue DAPT for at least 6 months without interruption. - Continue to optimize medical therapy and reduce atherosclerotic risk factors. Further management per the medicine and cardiology teams. Salomon Pulliam MD 10/24/2024 11:23 AM [facility] PCI RISK CALCULATOR PCI INDICATIONS Stable Angina [...] Low Risk (<1% annual risk of or OR) [] Intermediate Risk (1-3% annual risk of or OR [x] High Risk (>3% annual risk of or OR) 1. Severe resting LV dysfunction (LVEF <35%) [...] Coronary Segment (LEFT MAIN OR PROX LAD) Alexandru Warren MD CV CARDIAC CATH PROCEDURES Final Result * ECG 12 lead (10/24/2024 9:15 AM CDT) 10/24/2024 9:15 AM CDT [facility] - 10/24/2024 10:36 PM CDT Vent Rate: 72 bpm RR Interval: 832 msec MO Interval: 190 msec QRS Duration: 97 msec QT Interval: 405 msec QTC Interval: 429 msec P-R-T Timber: 51 - -4 - 93 degrees IMPRESSION: SINUS RHYTHM INFERIOR MYOCARDIAL INFARCTION , PROBABLY OLD [40+ ms Q WAVE AND/OR ST/T ABNORMALITY IN II/aVF] ANTEROLATERAL MYOCARDIAL INFARCTION , PROBABLY RECENT [40+ ms Q WAVE IN I/aVL/V3-V6] ABNORMAL ECG Electronically Signed By: MD ARIK Yadav Salomon Pulliam MD ECG ORDERABLES Final Re sult [facility] * eGFR (10/24/2024 9:05 AM CDT) eGFR >90 >=60 mL/min/1. 73 m2 Comment: [...] data was last reviewed 2021. Blood 10/24/2024 9:05 AM CDT 10/24/2024 9:08 AM CDT us Salomon Pulliam MD LAB BLOOD ORDERABLES Fin al Result [facility] [address] Department of Laboratories [place], [place] [address] * Differential, auto (10/24/2024 9:05 AM CDT) Neutrophil abs 4.82 1.50 - 6.50 K/cumm Imm gran abs 0.03 0.00 - 0.10 K/cumm [facility] Lymphocyte abs 1.42 0.80 - 3.30 K/cumm [facility] Monocyte abs 0.48 0.20 - 0.80 K/cumm [facility] Eosinophil abs 0.30 0.00 - 0.50 K/cumm [facility] Basophil abs 0.03 0.00 - 0.10 K/cumm [facility] Neutrophil pct 68.1 % [facility] Comment: Interpretive Data Percent cell count reference ranges are not reported, since discordance with absolute values may lead to misinterpretation of CBC data. Current Interpretive Data was last revised on 2017. Imm gran pct 0.4 % [facility] Comment: Interpretive Data Percent cell count reference ranges are not reported, since discordance with absolute values may lead to misinterpretation of CBC data. Current Interpretive Data was last revised on 2017. Lymphocyte pct 20.1 % [facility] Comment: Interpretive Data Percent cell count reference ranges are not reported, since discordance with absolute values may lead to misinterpretation of CBC data. Current Interpretive Data was last revised on 2017. Monocyte pct 6.8 % [facility] Comment: Interpretive Data Percent cell count reference ranges are not reported, since discordance with absolute values may lead to misinterpretation of CBC data. Current Interpretive Data was last revised on 2017. Eosinophil pct 4.2 % [facility] Comment: Interpretive Data Percent cell count reference ranges are not reported, since discordance with absolute values may lead to misinterpretation of CBC data. Current Interpretive Data was last revised on 2017. Basophil pct 0.4 % [facility] Comment: Interpretive Data Percent cell count reference ranges are not reported, since discordance with absolute values may lead to misinterpretation of CBC data. Current Interpretive Data was last revised on 2017. Blood 10/24/2024 9:05 AM CDT 10/24/2024 9:08 AM CDT us Salomon Pulliam MD LAB BLOOD ORDERABLES Fin al Result [facility] [address] Department [place] [address] * (ABNORMAL) CBC with auto differential (10/24/2024 9:05 AM CDT) Pathologist [facility] WBC 7.08 3.80 - 9.90 K/cumm Hgb 13.7 13.0 - 17.5 g/dL [facility] Hct 40.0 38.9 - 50.3 % [facility] Plt 162 150 - 400 K/cumm [facility] MPV 10.3 9.1 - 12.3 fL [facility] RBC 4.25(L) 4.30 - 5.80 M/cumm [facility] MCV 94.1 81.3 - 96.4 fL [facility] MCH 32.2 27.1 - 33.3 pg [facility] MCHC 34.3 32.3 - 35.7 g/dL [facility] RDW CV 12.7 11.1 - 14.9 % [facility] RDW SD 43.6 35.7 - 48.1 fL [facility] NRBC abs 0.00 0.00 - 0.01 K/cumm [facility] Blood 10/24/2024 9:05 AM CDT 10/24/2024 9:08 AM CDT Narrative [facility] - 10/24/2024 9:14 AM CDT If most recent labs were drawn prior to 4 AM, draw only prior to initiating procedure. us Salomon Pulliam MD LAB BLOOD ORDERABLES Fin al Result [facility] [address] Department [place] [address] * Protime-INR (10/24/2024 9:05 AM CDT) [facility] PT 10.1 9.7 - 13.0 sec INR 0.94 0.90 - 1.20 [facility] Comment: Interpretive data Oral anticoagulant therapeutic ranges: Venous thromboembolism prophylaxis or treatment: 2.0-3.0 CARDIOLOGY Standard range: 2.0-3.0 High-intensity range: 2.5-3.5 Refer to indication-specific guidelines for appropriate target ranges for prosthetic heart valve replacement. Current interpretive data was last revised on 2019. Blood 10/24/2024 9:05 AM CDT 10/24/2024 9:08 AM CDT Salomon Pulliam MD LAB BLOOD ORDERABLES Fin al Result Performing Organization Address [facility]/ZIP Co de Phone Number [facility] [address] Department [place] [address] * (ABNORMAL) Basic metabolic panel (10/24/2024 9:05 AM CDT) [facility] Sodium 142 135 - 145 mmol/L Potassium, pl 4.2 3.3 - 4.9 mmol/L [facility] Chloride 106 97 - 110 mmol/L [facility] CO2 21(L) 22 - 32 mmol/L [facility] Anion gap 15 2 - 15 mmol/L [facility] BUN 20 6 - 25 mg/dL [facility] Creatinine 0.86 0.80 - 1.30 mg/dL [facility] Glucose 130 70 - 199 mg/dL [facility] Comment: Interpretive Data Fasting glucose >/= 126 [...] 2022. Calcium 9.3 8.5 - 10.3 mg/dL [facility] Blood 10/24/2024 9:05 AM CDT 10/24/2024 9:08 AM CDT Salomon Pulliam MD LAB BLOOD ORDERABLES Fin al Result Performing Organization Address [facility]/ZIP Co de Phone Number [facility] [address] Department [place] [address] * NM MPI SPECT (Rest and/or Stress) Multiple Studies (10/15/2024 11:00 AM CDT) Anatomical Region Laterality Modality Body N/A Nuclear Medicine 10/15/2024 8:30 AM CDT Narrative 10/15/2024 1:21 PM CDT [facility] [address] [place] [address] MPI Imaging Report Patient Name: BALDEV MARKHAM M : 1960 (64y 7m) Gender: M Study Date: 10/15/2024 08:30:00 AM Ht(Inch): Wt(Lb): BSA: Tech: Order Provider: ALEXANDRU WARREN Heart Rate: 133 BMI: Ref Provider: ALEXANDRU WARREN PROCEDURES: Exercise SPECT Report.: Myocardial Perfusion Imaging at rest and post exercise. INDICATIONS: I25.118 Atherosclerotic heart disease of [place] coronary artery with other forms of angina [...] BP: 142/48 METS achieved: 9.1 Rate-Pressure Product: 17232 BPM*mmHg Max ST: Angina Index (0=No angina [...] wall. Electronically Signed By: Alexandru Warren MD [facility] 10/15/2024 1:20:56 PM CDT Procedure Note Alexandru Warren MD - 10/15/2024 [facility] [address] [place] [id number] MPI Imaging Report Patient Name: BALDEV MARKHAMCasper : 1960 (64y 7m) Gender: M Study Date: 10/15/2024 08:30:00 AM Ht(Inch): Wt(Lb): BSA: Tech: dh Order Provider: ALEXANDRU WARREN Heart Rate: 133 BMI: Ref Provider: ALEXANDRU WARREN PROCEDURES: Exercise SPECT Report.: Myocardial Perfusion Imaging at rest and postexercise. INDICATIONS: I25.118 Atherosclerotic heart disease of [place] coronary artery with otherforms of angina pectoris [...] BP: 142/48 METS achieved: 9.1 Rate-Pressure Product: 10863 BPM*mmHg Max ST: Angina Index (0=No angina [...] wall. Electronically Signed By: Alexandru Warren MD [facility] 10/15/2024 1:20:56 PM CDT Alexandru Warren MD IMG NM PROCEDURES Final Res ult * POCT lipid panel (09/18/2024 8:39 AM CDT) Pathologist [facility] HDL, POC 30 mg/dL Triglycerides, POC 142 mg/dL LDL Cholesterol POC 41.6 mg/dL Cholesterol Total, POC 100 mg/dL Capillary blood 09/18/2024 8 :39 AM CDT Alexandru Warren MD POINT OF CARE TEST ORDERABL ES Final Result * (ABNORMAL) Hemoglobin A1c (09/16/2022 1:24 PM CDT) Hgb A1C 6.2(H) <5.7 % of total Hgb [employer] [employer] Comment: For someone without known diabetes, [...] 09/17/2022 12:36 AM CDT FASTING:YES FASTING: YES Alexandru Warren MD LAB BLOOD ORDERABLES Final Result [facility] [address] [place] [address] from Last 3 Months or Most Recently Relevant to Health Maintenance [place] For more information, please contact: [phone] * Full Code (Latest Code Status on File) Date Activated Date Inactivated Comments 05/01/2022 4:42 PM 05/07/2022 9:51 PM * Full Code Date Activated Date Inactivated Comments 04/25/2022 4:42 PM 04/28/2022 3:44 PM Care Teams Technical Service Rep Relationship Specialty Start Date End Date Fabiola Liu MD PCP - General Family Practice 04/19/22 Murray Brown MD [address] [address] [address] Consulting Physician Cardiology 04/28/22 Alexandru Warren MD [address] [address] [facility] Cardiology 05/10/22
--- OUTSIDE RECORDS SUMMARY | 2024-12-25 09:49 | XMS_ITS | Patient Health Record ---
Author Organization [facility] Billing Info Address [address] [place] [address] [place] [address] Support Name Relationship Address Phone Gabbi Alves Emergency Contact [address] [place] [address] Sesar Alves Guarantor Unknown Allergies No Known Allergies Reason For Referral No Information Medications Medication SIG (Take, Route, Frequency, Duration) Notes Start Date End Date Status Metoprolol Succinate 100 MG 1 capsule Or ally Once a day Active Nitroglycerin 0.4 MG as directed Sublingual Active Meclizine HCl 25 MG 1 tablet as needed Orally TID Active Metformin HCl 1000 MG 1 tablet with a me al Orally BID Active Jardiance 10 MG 1 tablet Orally Once a day for 30 day(s) Active Clopidogrel Bisulfate 75 MG 1 tablet Ora lly Once a day for 30 day(s) Active Entresto 49-51 MG 1/2 tab Orally Twice a day Active Aspirin 81 MG 1 tablet Orally Once a day for 30 day(s) Active Atorvastatin Calcium 80 MG 1 tablet Oral ly Once a day for 30 day(s) Active Amiodarone HCl 200 MG 1 tablet Orally BID Active Lasix 20 MG 1 tablet Orally Ever y other day for 90 days Active Social History Tobacco Status: Question Answer Notes Patient is a non tobacco user Problems Problem Type SNOMED Code ICD Code Onset Dates Problem Status W/U Status Risk Notes Problem 004377305 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 Problem 60479097 Ventricular arrh ythmia (I49.9) Active confirmed Problem 231676485 Systolic CHF wit h reduced left ventricular function, NYHA class 2 (I50.20) Active confirmed Problem 12096800 ST elevation guy cardial infarction involving right coronary artery (I21.11) Active confirmed Problem 582043556 Type 2 diabetes mellitus without complication, without long-term current use of insulin (E11.9) Active confirmed Problem 312441791 Pure hypercholesterolemia (E78.00) Active confirmed Plan Of Treatment Pending Test Test Name Order Date Hemoglobin A1c (QM001) 10/18/2022 Future Test Test Name Order Date COMPREHENSIVE METABOLIC PANEL(Q-31041) 0 06/18/2022 URINALYSIS, COMPLETE (Q-5463) 06/18/2022 COMPREHENSIVE METABOLIC PANEL([id number]) 0 07/16/2022 ALBUMIN, RANDOM URINE W/CREATININE (Q-65 17) 07/16/2022 Insurance Providers Payer Name Payer Address Payer Phone Subscriber Number Group Number Insured Name Patient Relationship to Insured Coverage Start Date Coverage End Date BCBSMD PPO [address] MARICELKANDIS Sams, [place] [id number] Sesar Gale ch Self - patient is the insured 3 Medical (General) History Medical History History ICD Code Tachycardia Atrial Flutter STEMI Cardiomyopathy HANSEL on CPAP hyperlipidemia Vitamin D deficiency recurrent viertigo Surgical History Surgery Date(Month/Year) rotater cuff - bilateral BAck ICD placment Hospitalization History Reason Date(Month/Year) as above
--- OUTSIDE RECORDS SUMMARY | 2024-12-25 09:49 | XMS_ITS | Clinical Summary ---
Author Organization [facility] Address [address] [place] [address] Phone Care Team Providers Care Various Exceptionalities Teacher Name Role Phone Provider, None Primary Care Provider Unavailabl e Social History Tobacco Use Types Packs/Day Years Used Date Smoking Tobacco: Never Assessed Sex and Gender Information Value Date Recorded Sex Assigned at Not on file Legal Sex Male 9:05 PM CDT Gender Identity Not on file Sexual Orientation Not on file Plan of Treatment Health Maintenance Due Date Last Done Comments Hepatitis C Virus (HCV) Screening 1961 TdaP Immunization 1961 Cologuard 2006 Colonoscopy 2006 Colorectal Cancer Screening 2006 Immunochemical Fecal Occult Blood 2006 Pneumococcal Immunization (5 0+ years) (1 of 1 - PCV) 2011 Zoster Immunization (1 of 2) 2011 SARS-COV-2 Immunization ( season) 2024 05/24/2021, 09/23/2020, 09/02/2020 Influenza Immunization (#1) 2025 03/08/2017 Respiratory Syncytial Virus (RSV) Immunization (Adult) (1 - 1-dose 75+ series) 02/23/2036 Hepatitis B Immunization Aged Out No longer eligible based on patient's age to complete this topic Human Papillomavirus (HPV) Immunization Aged Out No longer eligible b ased on patient's age to complete this topic Meningococcal Immunization (ACWY) Aged Out No longer eligible b ased on patient's age to complete this topic Rotavirus Immunization Aged Out No lo nger eligible based on patient's age to complete this topic Insurance [facility] Care Teams Various Exceptionalities Teacher Relationship Specialty Start Date End Date Provider, None BAYLEE PCP - General 05/06/20
--- NOTE | 2024-12-25 11:30 | NEURO_ITS ---
Impression: # Complains of numbness of left hand. Non-diabetic. ? # Left Carpal Tunnel Syndrome. ? # Left ulnar neuropathy across the elbow. ? # Normal needle/EMG exam. Nerve Conduction Studies ?Stim Site NR Peak (ms) P-T Amp (?V) Site1 Site2 Delta-P (ms) Dist (cm) Adonay (m/s) Left Median Anti Sensory (2-3nd Digit) Wrist ? 4.1 30.1 Wrist 2-3nd Digit 4.1 14.0 34 Wrist ? 4.1 26.1 Wrist 2-3nd Digit 4.1 14.0 34 Left Radial Anti Sensory (Base 1st Digit) Wrist ? 2.1 23.2 Wrist Base 1st Digit 2.1 0.0 Left Ulnar Anti Sensory (5th Digit) Wrist ? 2.7 13.2 Wrist 5th Digit 2.7 14.0 52 ?Stim Site NR Onset (ms) O-P Amp (mV) Site1 Site2 Delta-0 (ms) Dist (cm) Adonay (m/s) Left Median Motor (Abd Poll Brev) Wrist ? 4.9 1.5 Elbow Wrist 5.3 31.0 58 Elbow ? 10.2 2.2 Left Ulnar Motor (Abd Dig Minimi) Wrist ? 2.4 5.4 A Elbow Wrist 6.4 31.0 48 A Elbow ? 8.8 4.2 B Elbow Wrist 4.4 24.0 55 B Elbow ? 6.8 3.2 Electromyography ?Side Muscle Nerve Root Ins Act Fibs Amp Dur Recrt Comment Left 1stDorInt Ulnar C8-T1 Nml Nml Nml Nml Nml Left Ext Indicis Radial (Post Int) C7-8 Nml Nml Nml Nml Nml Left Ext Digitorum Radial (Post Int) C7-8 Nml Nml Nml Nml Nml Left BrachioRad Radial C5-6 Nml Nml Nml Nml Nml Left PronatorTeres Median C6-7 Nml Nml Nml Nml Nml Left Abd Poll Brev Median C8-T1 Nml Nml Nml Nml Nml Left ABD Dig Min Ulnar C8-T1 Nml Nml Nml Nml Nml Left FlexPolLong Median (Ant Int) C7-8 Nml Nml Nml Nml Nml Left Abd Poll Long Radial (Post Int) C7-8 Nml Nml Nml Nml Nml
== END 2024-12-25 09:45 | disposition home or self-care (01) ==
PROVIDERS: PCP Family Medicine; Visit Provider Nurse Practitioner Family
DX: G56.02 Carpal tunnel syndrome, left upper limb (principal); G56.22 Lesion of ulnar nerve, left upper limb
CPT/HCPCS: 95886; 95909

== ENCOUNTER 2025-01-14 07:15 | Outpatient (RCR) | payer BC, SELFPAY | END 2025-01-24 09:42 | disposition home or self-care (01) | LOC: ANHCPREHAB 07:15 | PROVIDERS: PCP Family Medicine | DX: Z51.89 Encounter for other specified aftercare (principal); Z98.61 Coronary angioplasty status | CPT/HCPCS: 93798 ==

== ENCOUNTER 2025-01-16 09:11 | Emergency (ER) | payer BC, SELFPAY ==
--- NOTE | ~2025-01-16 | CT_ITS ---
EXAMINATION: CT lumbar spine wo con DATE: 01/16/2025 09:43 INDICATION: Chronic low back pain. TECHNIQUE: Computed tomography (CT) of the lumbar spine was performed without intravenous contrast. A utomated exposure control and iterative reconstruction technique were employed. The dose-length produ ct was 1141.08 mGy-cm. COMPARISON: None FINDINGS: Alignment is normal. Chronic L1 burst fracture and L2 superior endplate compression fractur es with 20% anterior and 40% central vertebral body height loss with 2 mm retropulsion at L1 and 20% anterior vertebral body height loss at L2. No acute fractures identified. There is been prior posteri or spinal fusion without instrumentation with solid osseous fusion across the bilateral T12-L1 and L1 -L2 facet joints. There are multiple small heterotopic ossicles along the soft tissues posterior to t he spinous processes which appear truncated suggesting chronic osteotomies. Moderate to severe disc h eight loss at L5-S1 and mild disc height loss at T12-L1, L1-L2, L3-L4 and L4-L5. Paravertebral soft t issues are unremarkable. The following disc levels are specifically discussed: T11-T12: The disc does not extend beyond the endplate margin. There is severe bilateral facet joint o steoarthritis. There is no neural foraminal stenosis. There is no central canal stenosis. T12-L1: The disc does not extend beyond the endplate margin. There is however minimal central canal s tenosis just below local the disc space resulting from the mild L1 retropulsion. Bilateral facet join ts are fused. There is mild left neural foraminal stenosis. L1-L2: Disc is mildly bulging with small bridging osteophyte along the posterior margin of the disc s pace. The bilateral facet joints are fused. There is mild left and minimal right neural foraminal kassi nosis. There is normal central canal stenosis. L2-L3: Disc is mildly bulging. There is mild bilateral facet joint osteoarthritis. There is mild left neural foraminal stenosis. There is minimal central canal stenosis. L3-L4: Posterior disc osteophyte complex. There is moderate bilateral facet joint osteoarthritis. The re is some additional heterotopic ossification along the ligamentum flavum soft tissues along the pos terior margin of the intralaminar space. There is mild to moderate bilateral neural foraminal stenosi s. There is moderate central canal stenosis. L4-L5: Disc is bulging. There is mild right and moderate left facet joint osteoarthritis. There is mo derate bilateral neural foraminal stenosis. There is mild central canal stenosis. L5-S1: Posterior disc osteophyte complex. There is mild to moderate bilateral facet joint osteoarthri tis. There is moderate to severe bilateral neural foraminal stenosis. There is mild central canal kassi nosis. IMPRESSION: 1. Mild lumbar and moderate to severe lumbosacral spondylosis with T12-L2 posterior spinal fusion. 2. Chronic mild L1 burst fracture and chronic mild L2 compression fracture. No acute osseous abnormal ity. Reviewed, dictated and finalized at location A. IMPRESSION: 1. Mild lumbar and moderate to severe lumbosacral spondylosis with T12-L2 poste rior spinal fusion. 2. Chronic mild L1 burst fracture and chronic mild L2 compression fracture. No acute osseous abnormality.
[2025-01-16 09:11] VITALS: BP 109/75; PULSE 66; RESP 15; TEMP 36.8; O2SAT 97
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
--- OUTSIDE RECORDS SUMMARY | 2025-01-16 09:23 | XMS_ITS | Patient Health Record ---
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 Problem 59209613 Ventricular arrh ythmia (I49.9) Active confirmed Problem 739259841 Systolic CHF wit h reduced left ventricular function, NYHA class 2 (I50.20) Active confirmed Problem 63960412 ST elevation guy cardial infarction involving right coronary artery (I21.11) Active confirmed Problem 606611372 Type 2 diabetes mellitus without complication, without long-term current use of insulin (E11.9) Active confirmed Problem 626230878 Pure hypercholesterolemia (E78.00) Active confirmed Plan Of Treatment Pending Test Test Name Order Date Hemoglobin A1c (QM001) 10/18/2022 Future Test Test Name Order Date COMPREHENSIVE METABOLIC PANEL(Q-[id number]) 0 06/18/2022 URINALYSIS, COMPLETE (Q-5463) 06/18/2022 COMPREHENSIVE METABOLIC PANEL([id number]) 0 07/16/2022 ALBUMIN, RANDOM URINE W/CREATININE (Q-65 17) 07/16/2022 Insurance Providers Payer Name Payer Address Payer Phone Subscriber Number Group Number Insured Name Patient Relationship to Insured Coverage Start Date Coverage End Date BCBSFL PPO [address] MARICELKANDIS Sams, [place] [id number] Sesar Gale ch Self - patient is the insured 3 Medical (General) History Medical History History ICD Code Tachycardia Atrial Flutter STEMI Cardiomyopathy HANSEL on CPAP hyperlipidemia Vitamin D deficiency recurrent viertigo Surgical History Surgery Date(Month/Year) ICD placment BAck rotater cuff - bilateral Hospitalization History Reason Date(Month/Year) as above
--- OUTSIDE RECORDS SUMMARY | 2025-01-16 09:23 | XMS_ITS | Clinical Summary ---
Author Organization [facility] Address [address] [place] [address] Phone Care Team Providers Care Assembly Inspector Name Role Phone Provider, None Primary Care [...] age to complete this topic Insurance [facility] Care Teams Assembly Inspector Relationship Specialty Start Date End Date Provider, None BAYLEE PCP - General 05/06/20
--- OUTSIDE RECORDS SUMMARY | 2025-01-16 09:23 | XMS_ITS | Clinical Summary ---
Author Organization [facility] [address] Address [address] [place] [address] Care Team Providers Care Manager Regional Name Role Phone Fabiola Liu MD Primary Care Provider Murray Brown MD Unavailable [phone] Alexandru Warren MD Unavailable [phone] Allergies No known active allergies Medications metFORMIN (GLUCOPHAGE) 1,000 mg tablet Take 1 tablet (1,000 mg total) by mouth 2 (two) times a day with meals Active nitroglycerin (NITROSTAT) 0.[address] 1 tablet (0.4 mg total) under the tongue every 5 (five) minutes as needed for chest pain Active OneTouch Delica Plus Lancet 30 gauge misc 04/12/20 22 Active aspirin 81 mg enteric coated tablet Take 1 tablet (81 mg total) by mouth daily 30 tablet 11 09/16/19 23 Active cetirizine-pseu doephedrine ER (ZyrTEC-D) 5-120 mg per 12 hr tablet Take 1 tablet by mouth as needed for allergies Active levothyroxine (SYNTHROID) 50 mcg tablet Take 1 tablet (50 mcg total) by mouth tenoner operator before breakfast Active glipiZIDE XL (GLUCOTROL XL) 5 mg 24 hr tablet Take 1 tablet (5 mg total) by mouth daily 09/08/19 24 Active sacubitriL-vals brandon (Entresto) 49-51 mg tablet Take 1 tablet by mouth 2 (two) times a day 60 tablet 3 07/03/19 25 Active metoprolol XL (TOPROL-XL) 100 mg 24 hr tablet Take 1.5 tablets (150 mg total) by mouth daily 90 tablet 3 07/18/19 25 Active clopidogreL (PLAVIX) 75 mg tablet TAKE 1 TABLET(75 MG) BY MOUTH DAILY 90 tablet 3 08/15/19 25 Active furosemide (LASIX) 20 mg tablet Take 1 tablet (20 mg total) by mouth every other day 45 tablet 3 08/22/19 25 Active dapagliflozin propanediol (FARXIGA) 10 mg tablet Take 1 tablet (10 mg total) by mouth daily 90 tablet 3 10/17/19 25 Active rosuvastatin (CRESTOR) 40 mg tablet Take 1 tablet (40 mg total) by mouth daily 30 tablet 11 10/31/19 25 026 Active spironolactone (ALDACTONE) 25 mg tablet TAKE ONE TABLET BY MOUTH DAILY 90 tablet 3 01/04/20 25 Active spironolactone (ALDACTONE) 25 mg tablet TAKE 1 TABLET(25 MG) BY MOUTH DAILY 90 tablet 1 03/05/20 24 025 Discontinued Active Problems Problem Noted Date Diagnosed Date [...] with patient. Offered VT ablation to avoid intermodal customer service amiodarone use. Pt is interested. We will reduce amiodarone dose today, observe, and consider ablation at next visit. --Decrease amiodarone to 200 mg PO once daily --Continue metoprolol XL 50 mg daily --Check LFTs, TSH, BMP, CBC, INR today Coronary artery disease 04/19/2022 Encounters Date Type Department Care Team Description 01/09/2025 Telephone [facility] Cardiology [address] [place] [address] [address], [place] [address] Alexandru Warren MD 11/19/2024 10:15 AM CDT Ancillary Procedure [facility] [address] [place] [id number] AICD (automatic cardioverter/defibrilla tor) present (Primary Dx); VT (ventricular tachycardia) (HCC) 11/19/2024 Orders Only [facility] [address] [place] [address] [address], [place] [address] Martin Benson III, MD VT (ventricular tachycardia) (HCC) (Primary Dx) 11/05/2024 Telephone [facility] Cardiology [address] [place] [address] [address], [place] [address] Alexandru Warren MD Cardiac clearance 11/01/2024 Telephone [facility] Cardiology [address] [facility] [address] [place] [address] Alexandru Warren MD Cardiac Rehab form 10/26/2024 Results Follow-Up [facility] Cardiology [address] [place] [address] [address] [place] [address] Alexandru Warren MD Cardiac Catheterization 10/24/2024 10:50 AM CDT - 10/24/2024 12:10 PM CDT Surgery [facility] Heart [address] [address] Salomon Pulliam MD LEFT HEART CATHETERIZATION WITH CORONARY ANGIOGRAPHY AND WITH OR WITHOUT LEFT VENTRICULOGRAM [id number] 10/24/2024 8:30 AM CDT - 10/24/2024 3:39 PM CDT Hospital Encounter [facility] Heart [address] [address] Salomon Pulliam MD S/P drug eluting coronary stent placement (Primary Dx); Unstable angina pectoris (HCC) Discharge Disposition: Discharge to home or self care 10/23/2024 Telephone [facility] Cardiology [address] [place] [address] [address] [place] [address] Salomon Pulliam MD Prep Instructions/Arrival Time 10/16/2024 Telephone [facility] Cardiology [address] [place] [address] [address] [place] [address] Alexandru Warren MD Cath Scheduling 10/16/2024 Results Follow-Up [facility] Cardiology [address] [place] [address] [address] [address] Alexandru Warren MD NM MPI SPECT (Rest and/or Stress) Multiple Studies 10/16/2024 Telephone [facility] Cardiology [address] [place] [address] [address] [place] [address] Alexandru Warren MD PROCEDURE SCHEDULING from Last 3 Months Immunizations Immunization Administration Dates Next Due Influenza, Unspecified 04/06/2022 Surgical History Surgery Date Site/Laterality Comments CARDIAC DEFIBRILLATOR PLACEMENT CORONARY STENT PLACEMENT 04/19/2022 CARDIAC CATHETERIZATION 10/24/2024 N/A Procedure: LEFT HEART CATHETERIZATION WITH CORONARY ANGIOGRAPHY AND WITH OR WITHOUT LEFT VENTRICULOGRAM [id number]; Surgeon: Salomon Pulliam MD; Location: [facility] CARDIAC [employer]; Service: Cardiovascular; Laterality: N/A; Medical devices from this surgery are in the Medical Devices section. 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 Gender Identity Not on file Sexual Orientation [...] season) 2024 05/24/2021, 09/23/2020, 09/02/2020 Influenza Vaccine (#1) 2025 , 05/24/2021, 03/08/2017 Lipid Panel 09/18/2025 09/18/2024, 09/05, 09/16/2022, Additional history exists eGFR 10/24/2025 10/24/2024, 12/04, 09/16/2022, Additional history exists DTaP/Tdap/Td Vaccine (2 - Td or Tdap) 12/31/2031 12/30/2021 Medical Devices Implanted Type Area Carpet Cutter Device Identifier Shelf Expiration Date Model / Serial / Lot [employer]ya Dynagen Enduralife Easyview Hf Perspectiv 5.37x7.68cm 2 Chamber D152 - [id number] - [id number] Implanted:Qty: 1 on 04/27/2022 by Murray Brown MD at [facility] ICD [employer]ya [id number] 07/07/2023 D152 / [id number] / [employer] Nadiya [place] 4-Front 64cm Dual-Coil Active Fixation Icd Lead 0676 - [id number] - [id number] Implanted:Qty: 1 on 04/27/2022 by Murray Brown MD at [facility] Lead [employer] N[employer]ya [id number] 07/31/2023 0676 / [id number] / [employer] Nadiya Lead 7841 Endocardial Pacing Mr Is-1 Bipolar Connection 7841 - [id number] - [id number] Implanted:Qty: 1 on 04/27/2022 by Murray Brown MD at [facility] Lead [employer] Nadiya [id number] 03/29/2024 7841 / [id number] / [employer] Stent Coronary De Rx Cocr Ors Msn 2.25k40xg [id number] - S0 - [id number] Implanted:Qty: 1 on 10/24/2024 by Salomon Pulliam MD at [facility] Stent [employer] 08/26/2027 [id number] / [id number] / [id number] [employer] Device Closure Vascade Od5 Fr Femoral Artery [id number] - [id number] - [id number] Implanted:Qty: 1 on 12/27/2022 by Martin Benson III, MD at [facility] Vascular Closure Device Left: Femoral Vein [employer] 06/10/2024 700-500D X-05U / [id number] / [id number] [employer] Vascade Mvp 6-12fr Venous Closure [id number] - [id number] - [id number] Implanted:Qty: 1 on 12/27/2022 by Martin Benson III, MD at [facility] Vascular Closure Device Left: Femoral Vein [employer] 09/14/2024 800-612C -10U / [id number] / [id number] [employer] Vascade Mvp 6-12fr Venous Closure [id number] - [id number] - [id number] Implanted:Qty: 1 on 12/27/2022 by Martin Benson III, MD at [facility] Vascular Closure Device Right: Femoral Vein [employer] 09/14/2024 800-612C -10U / [id number] / [id number] [employer] Vascade Mvp 6-12fr Venous Closure [id number] - [id number] - [id number] Implanted:Qty: 1 on 12/27/2022 by Martin Benson III, MD at [facility] Vascular Closure Device Right: Femoral Vein [employer] 09/14/2024 800-612C -10U / [id number] / [id number] [employer] System Closure Repair Femoral Artery Suture Mediated Perclose Prostyle 14983-82 - S0 - [id number] Implanted:Qty: 1 on 10/24/2024 by Salomon Pulliam MD at [facility] Vascular Closure Device [employer] 09/03/2026 03386-77 / 0 / [id number] Procedures Procedure Name Priority Date/Time Associated Diagnosis [...] 9:05 AM CDT Unstable angina pectoris (HCC) POCT LIPID PANEL Routine 09/18/2024 8:39 AM CDT Coronary artery disease of augustine artery of augustine heart with stable angina pectoris HEMOGLOBIN A1C [...] not included. ICD CHECK (REMOTE) Patient ID: Sesar Alves is a 64 y.o. male This patient received a [employer] ICD. They had a remote transmission [...] 10.4 seconds Episodes last 90 days/Comments: AF Gunlock <1% Five ventricular episodes classified as VT-1 and nonsustained VT. No EGMs available for review. VT-1 episodes in the 130s and nonsustained VT episodes in the 120s to 130s. NORMAL DEVICE FUNCTION PROGRAMMED Medications: Anti-coagulant(s): Aspirin 81 mg, Plavix 75 mg Anti-arrhythmic(s): Toprol-XL 150 mg daily PLAN: 1) [employer] ICD evaluation. 2) [employer] remote transmission scheduled in 3 months. 3) Programming appropriate for device measurements Lora Lane RN Martin Benson III, MD CV CARDIAC SERVICES PROCEDURES Final Result * ECG 12 lead (10/24/2024 11:50 AM CDT) 10/24/2024 11:5 0 AM CDT Narrative [facility] - 10/24/2024 11:03 PM CDT Vent Rate: 68 bpm RR Interval: 876 msec TX Interval: 191 msec QRS Duration: 109 msec QT Interval: 433 msec QTC Interval: 450 msec P-R-T Salter Path: 55 - 2 - 91 degrees IMPRESSION: SINUS RHYTHM LOW QRS VOLTAGE IN PRECORDIAL LEADS ANTEROLATERAL MYOCARDIAL INFARCTION ABNORMAL ECG Electronically Signed By: Alexandru Warren MD [facility] Salomon Pulliam MD ECG ORDERABLES Final Re sult Performing Organization Address [facility] Co de Phone Number [facility] * (ABNORMAL) POC Activated Clotting Time, High Range (10/24/2024 11:14 AM CDT) ACT 178(H) 87 - 138 sec POC Performer [id number] [facility] Blood 10/24/2024 11:1 4 AM CDT 10/24/2024 11:14 AM CDT Salomon Pulliam MD LAB BLOOD ORDERABLES Fin al Result Performing Organization Address [facility] Co de Phone Number [facility] [address] Department [place] [address] * LEFT HEART CATHETERIZATION WITH CORONARY ANGIOGRAPHY AND WITH AND WITHOUT LEFT VENTRICULOGRAM (10/24/2024 11:12 AM CDT) Anatomical Region Laterality Modality X-Ray Angiograph y Narrative 10/24/2024 3:45 PM CDT Images from the original result were not included. [facility] [place] [address] [facility] [id number] [place] [address], [address] Left Heart Catheterization Procedure Report 64 year old male with ischemic CMP, CAD prior PCI with recurrent typical angina and lateral ischemia referred for left heart catheterization. Access:6 Cymraes RFA Catheter:CLS 4.0, JR 4, and JL 4 Closure:Perclose Anticoagulation:91680 Units Heparin, Clopidogrel, and Aspirin Contrast:65 ml [...] and draped in sterile fashion. A 6 Cymraes sheath was inserted in the Right Femoral [...] mm Hg PCI details: Using a 6 Cymraes EBU 4 guide catheter, we advanced a [...] Recommendations: - 600mg Clopidogrel given in the lab specialist. Continue DAPT for at least 6 months without interruption. - Continue to optimize medical therapy and reduce atherosclerotic risk factors. Further management per the medicine and cardiology teams. Salomon Pulliam MD 10/24/2024 11:23 AM [facility] PCI RISK CALCULATOR PCI INDICATIONS Stable [...] Low Risk (<1% annual risk of or ND) [] Intermediate Risk (1-3% annual risk of or ND [x] High Risk (>3% annual risk of or ND) 1. Severe resting LV dysfunction (LVEF <35%) [...] AM CDT) 10/24/2024 9:15 AM CDT Narrative [facility] - 10/24/2024 10:36 PM CDT Vent Rate: 72 bpm RR Interval: 832 msec TX Interval: 190 msec QRS Duration: 97 msec QT Interval: 405 msec QTC Interval: 429 msec P-R-T Salter Path: 51 - -4 - 93 degrees IMPRESSION: SINUS RHYTHM INFERIOR MYOCARDIAL INFARCTION , PROBABLY OLD [40+ ms Q WAVE AND/OR ST/T ABNORMALITY IN II/aVF] ANTEROLATERAL MYOCARDIAL INFARCTION , PROBABLY RECENT [40+ ms Q WAVE IN I/aVL/V3-V6] ABNORMAL ECG Electronically Signed By: Alexandru Warren MD [facility] us Salomon Pulliam MD ECG ORDERABLES Final Re sult [facility] * eGFR (10/24/2024 9:05 AM CDT) eGFR [...] MD LAB BLOOD ORDERABLES Fin al Result [facility] [address] Department [place] [address] * Differential, auto (10/24/2024 9:05 AM CDT) Neutrophil abs 4.82 1.50 - 6.50 K/cumm Imm gran abs 0.03 0.00 - 0.10 K/cumm [facility] Lymphocyte abs 1.42 0.80 - 3.30 K/cumm [facility] Monocyte abs 0.48 0.20 - 0.80 K/cumm [facility] Eosinophil abs 0.30 0.00 - 0.50 K/cumm [facility] Basophil abs 0.03 0.00 - 0.10 K/cumm [facility] Neutrophil pct 68.1 % [facility] Comment: Interpretive Data Percent cell count reference ranges are not reported, since discordance with absolute values may lead to misinterpretation of CBC data. Current Interpretive Data was last revised on 2017. Imm gran pct 0.4 % [facility] Comment: Interpretive Data Percent cell count reference ranges are not reported, since discordance with absolute values may lead to misinterpretation of CBC data. Current Interpretive Data was last revised on 2017. Lymphocyte pct 20.1 % [facility] Comment: Interpretive Data Percent cell count reference ranges are not reported, since discordance with absolute values may lead to misinterpretation of CBC data. Current Interpretive Data was last revised on 2017. Monocyte pct 6.8 % [facility] Comment: Interpretive Data Percent cell count reference ranges are not reported, since discordance with absolute values may lead to misinterpretation of CBC data. Current Interpretive Data was last revised on 2017. Eosinophil pct 4.2 % [facility] Comment: Interpretive Data Percent cell count reference ranges are not reported, since discordance with absolute values may lead to misinterpretation of CBC data. Current Interpretive Data was last revised on 2017. Basophil pct 0.4 % [facility] Comment: Interpretive Data Percent cell count reference ranges are not reported, since discordance with absolute values may lead to misinterpretation of CBC data. Current Interpretive Data was last revised on 2017. Blood 10/24/2024 9:05 AM CDT 10/24/2024 9:08 AM CDT Salomon Pulliam MD LAB BLOOD ORDERABLES Fin al Result [facility] [address] Department [place] [address] * (ABNORMAL) CBC with auto differential (10/24/2024 9:05 AM CDT) WBC 7.08 3.80 - 9.90 K/cumm Hgb 13.7 13.0 - 17.5 g/dL [facility] Hct 40.0 38.9 - 50.3 % [facility] Plt 162 150 - 400 K/cumm [facility] MPV 10.3 9.1 - 12.3 fL [facility] RBC 4.25(L) 4.30 - 5.80 M/cumm [facility] MCV 94.1 81.3 - 96.4 fL [facility] MCH 32.2 27.1 - 33.3 pg [facility] MCHC 34.3 32.3 - 35.7 g/dL [facility] RDW CV 12.7 11.1 - 14.9 % [facility] RDW SD 43.6 35.7 - 48.1 fL [facility] NRBC abs 0.00 0.00 - 0.01 K/cumm [facility] Blood 10/24/2024 9:05 AM CDT 10/24/2024 9:08 AM CDT Narrative [facility] - 10/24/2024 9:14 AM CDT If most recent labs were drawn prior to 4 AM, draw only prior to initiating procedure. Salomon Pulliam MD LAB BLOOD ORDERABLES Fin al Result Performing Organization Address [facility] Co de Phone Number [facility] [address] [facility] [place] [address] * Protime-INR (10/24/2024 9:05 AM CDT) PT 10.1 9.7 - 13.0 sec INR 0.94 0.90 - 1.20 [facility] Comment: Interpretive data Oral anticoagulant therapeutic ranges: Venous thromboembolism prophylaxis or treatment: 2.0-3.0 CARDIOLOGY Standard range: 2.0-3.0 High-intensity range: 2.5-3.5 Refer to indication-specific guidelines for appropriate target ranges for prosthetic heart valve replacement. Current interpretive data was last revised on 2019. Blood 10/24/2024 9:05 AM CDT 10/24/2024 9:08 AM CDT Salomon Pulliam MD LAB BLOOD ORDERABLES Fin al Result Performing Organization Address [facility] de Phone Number [facility] [address] [facility] [place] [address] * (ABNORMAL) Basic metabolic panel (10/24/2024 9:05 AM CDT) Sodium 142 135 - 145 mmol/L Potassium, pl 4.2 3.3 - 4.9 mmol/L [facility] Chloride 106 97 - 110 mmol/L [facility] CO2 21(L) 22 - 32 mmol/L [facility] Anion gap 15 2 - 15 mmol/L [facility] BUN 20 6 - 25 mg/dL [facility] Creatinine 0.86 0.80 - 1.30 mg/dL [facility] Glucose 130 70 - 199 mg/dL [facility] Comment: Interpretive Data Fasting glucose >/= 126 [...] 2022. Calcium 9.3 8.5 - 10.3 mg/dL [facility] Blood 10/24/2024 9:05 AM CDT 10/24/2024 9:08 AM CDT Salomon Pulliam MD LAB BLOOD ORDERABLES Fin al Result [facility] [address] Department [place] [address] * POCT lipid panel (09/18/2024 8:39 AM CDT) HDL, POC 30 mg/dL Triglycerides, POC 142 mg/dL LDL Cholesterol POC 41.6 mg/dL Cholesterol Total, POC 100 mg/dL Capillary blood 09/18/2024 8 :39 AM CDT Alexandru Warren MD POINT OF CARE TEST ORDERABL ES Final Result * (ABNORMAL) Hemoglobin A1c (09/16/2022 1:24 PM CDT) Hgb A1C 6.2(H) <5.7 % of total Hgb [facility] Comment: For someone without known diabetes, [...] LAB BLOOD ORDERABLES Final Result [facility] [address] [place] [address] from Last 3 Months or Most Recently Relevant to Health Maintenance [place] Advance Directives For more information, please contact: [phone] * Full Code (Latest Code Status on File) Date Activated Date Inactivated Comments 05/01/2022 4:42 PM 05/07/2022 9:51 PM * Full Code Date Activated Date Inactivated Comments 04/25/2022 4:42 PM 04/28/2022 3:44 PM Care Teams Manager Regional Relationship Specialty Start Date End Date Fabiola Liu MD PCP - General Family Practice 04/19/22 Murray Brown MD [address] [address] Consulting Physician Cardiology 04/28/22 Alexandru Warren MD [address] [address], [place] [address] Quality Control Industrial Engineer Cardiology 05/10/22
--- OUTSIDE RECORDS SUMMARY | 2025-01-16 09:38 | XMS_ITS | Continuity of Care Document ---
Author Organization [facility]. If a dditional information is needed, contact Health Information Management at [phone] [address] [place] [address] Phone Care Team Providers Care Pressure Tester Name Role Phone Unavailable Unavailable Unavailable Unavailable Unavailable Unavailable Unavailable Unavailable Unavailable Unavailable Unavailable Unavailable Unavailable Unavailable Problems Acute exacerbation of chroni c congestive heart failure Onset:08-Jul-2022 Clarita MCARTHUR Dyspnea Onset:08-Jul-2022 Clarita MCARTHUR Drug-induced hypotension Comments:Hypotension due to drugs Congestive heart failure due to left ventricular systolic dysfunction Comments:Systolic CHF with reduced left ventricular function, NYHA class 2 Ventricular arrhythmia Comments:Ventricular arrhyth julia Myocardial infarction Comments:ST elevation myocardial infarction involving right coronary artery Pure hypercholesterolemia Comments:Pure hypercholesterolemia Type 2 diabetes mellitus without complication Comments:Type 2 diabetes mellitus without complication, without long-term current use of insulin Allergies and Adverse Reactions No Known Allergies(Allergy) Onset: 08-Jul-2022 Medications Lasix;20 MG Orally Every oth er day, 1 tablet Quantity:45 MD Leo Gaspar Start:14-Jul-2022 Comments:20 MG Orally Every other day, 1 tablet Meclizine HCl;25 MG Orally T ID, 1 tablet as needed MD Leo Gaspar Comments:25 MG Orally TID, 1 tablet as needed Entresto;49-51 MG Orally Twi ce a day, 1/2 tab MD Leo Gaspar Comments:49-51 MG Orally Twi ce a day, 1/2 tab Jardiance;10 MG Orally Once a day, 1 tablet Quantity:30 MD Leo Gaspar Comments:10 MG Orally Once a day, 1 tablet Atorvastatin Calcium;80 MG Orally Once a day, 1 tablet Quantity:30 MD Leo Gaspar Comments:80 MG Orally Once a day, 1 tablet Amiodarone HCl;200 MG Orally BID, 1 tablet MD Leo Gaspar Comments:200 MG Orally BID, 1 tablet clopidogrel 75 MG Oral Tablet;75 MG Orally Once a day, 1 tablet Quantity:30 MD Leo Gaspar Comments:75 MG Orally Once a day, 1 tablet Metformin HCl;1000 MG Orally BID, 1 tablet with a meal MD Leo Gaspar Comments:1000 MG Orally BID, 1 tablet with a meal Metoprolol Succinate;100 MG Orally Once a day, 1 capsule MD Leo Gaspar Comments:100 MG Orally Once a day, 1 capsule Nitrostat;0.4 MG Sublingual , as directed MD Leo Gaspar Comments:0.4 MG Sublingual , as directed Aspirin;81 MG Orally Once a day, 1 tablet Quantity:30 MD Leo Gaspar Comments:81 MG Orally Once a day, 1 tablet Social History Smoking Status Never smoked tobacco Recorded: 05-Aug-2022 Never smoked tobacco Recorded: 08-Jul-2022 Tobacco non-user
[2025-01-16] MEDS: KETOROLAC 30 MG/ML VIAL (*BKC) IM (09:43)
[2025-01-16 10:35] VITALS: BP 132/69; PULSE 62; RESP 16; TEMP 36.9; O2SAT 98
== END 2025-01-16 10:35 | disposition home or self-care (01) ==
PROVIDERS: Emergency Provider Internal Medicine Critical Care Medicine; PCP Family Medicine
DX: M54.50 Low back pain, unspecified (principal); G89.29 Other chronic pain; E11.9 Type 2 diabetes mellitus without complications; E03.9 Hypothyroidism, unspecified; I25.10 Atherosclerotic heart disease of native coronary artery without angina pectoris; E78.5 Hyperlipidemia, unspecified; I50.9 Heart failure, unspecified
CPT/HCPCS: 72131; 96372; 99284; J1885

== ENCOUNTER 2025-04-29 00:29 | Day surgery (SDC) | payer BC, SELFPAY ==
[2024-10-05 15:52] VITALS: BMI 29.9
[2025-04-23 09:17] VITALS: BMI 29.9
--- NOTE | 2025-04-23 09:40 | PC.NURSE ---
Spoke with Patient regarding medication Plavix. Patient verbalizes understanding that the last dose is to be taken on 04/24/2025 and the Endoscopist will instruct them when to restart after the procedure.
--- OUTSIDE RECORDS SUMMARY | 2025-04-29 00:32 | XMS_ITS | Clinical Summary ---
Author Organization [facility] [address] Address [address] [place] [address] Care Team Providers Care Java User Interface Developer Name Role Phone Fabiola Liu MD Primary Care Provider Murray Brown MD Unavailable [phone] Alexandru Warren MD Unavailable [phone] Allergies No known active allergies Medications metFORMIN [...] 1 tablet (50 mcg total) by mouth senior qa tester before breakfast Active glipiZIDE XL (GLUCOTROL XL) 5 mg 24 hr tablet Take 1 tablet (5 mg total) by mouth daily 4 Active sacubitriL-valsa rtan (Entresto) 49-51 mg [...] 30 tablet 11 5 10/31/19 26 Active spironolactone (ALDACTONE) 25 mg tablet TAKE ONE TABLET BY MOUTH DAILY 90 tablet 3 5 Active Active Problems Problem Noted Date Diagnosed [...] with patient. Offered VT ablation to avoid terminal make up operator amiodarone use. Pt is interested. We will reduce amiodarone dose today, observe, and consider ablation at next visit. --Decrease amiodarone to 200 mg PO once daily --Continue metoprolol XL 50 mg daily --Check LFTs, TSH, BMP, CBC, INR today Coronary artery disease 04/19/2022 Encounters Date Type Department Care Team Description 04/12/2025 Telephone [facility] Cardiology [address] [place] [address] [place] [address] Alexandru Warren MD Cardiac clearance form. 02/18/2025 12:15 PM CDT Ancillary Procedure [facility] [address] [facility] [address] [place] [address] AICD (automatic cardioverter/defibri llator) present (Primary Dx); VT (ventricular tachycardia) from Last 3 Months Immunizations Immunization Administration Dates Next Due Influenza, Unspecified 04/06/2022 Surgical History Surgery Date Site/Laterality Comments CARDIAC DEFIBRILLATOR PLACEMENT CORONARY STENT PLACEMENT 04/19/2022 CARDIAC CATHETERIZATION 10/24/2024 N/A Procedure: LEFT HEART CATHETERIZATION WITH CORONARY ANGIOGRAPHY AND WITH OR WITHOUT LEFT VENTRICULOGRAM 14363; Surgeon: Salomon Pulliam MD; Location: [facility] CARDIAC POSTAL TRANSPORTATION CLERK; Service: Cardiovascular; Laterality: N/A; Medical devices from [...] often do you attend chur ch or buddhist services? 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 Gender Identity Not on file Sexual Orientation [...] A1C 03/18/2023 09/16/2022 Covid-19 Vaccine (4 - 2024-2 6 season) 2025 05/24/2021, 09/23/2020, 09/02/2020 Influenza Vaccine (#1) 2025 , 05/24/2021, 03/08/2017 Lipid Panel 09/18/2025 09/18/2024, 09/05, 09/16/2022, Additional history exists eGFR 10/24/2025 10/24/2024, 12/04, 09/16/2022, Additional history exists DTaP/Tdap/Td Vaccine (2 - Td or Tdap) 12/31/2031 12/30/2021 Medical Devices Implanted Type Area Rental Car Ferry Driver Device Identifier Shelf Expiration Date Model / Serial / Lot [employer] Nadiya Dynagen Enduralife Easyview Hf Perspectiv 5.37x7.68cm 2 Chamber D152 - [id number] - [id number] Implanted:Qty: 1 on 04/27/2022 by Murray Brown MD at [facility] ICD [employer] Nadiya [id number] 07/07/2023 D152 / [id number] / [employer] Nadiya Bailey 4-Front 64cm Dual-Coil Active Fixation Icd Lead 0676 - [id number] - [id number] Implanted:Qty: 1 on 04/27/2022 by Murray Brown MD at [facility] Lead [employer] Nadiya [id number] 07/31/2023 0676 / [id number] / [employer] Naidya Lead 7841 Endocardial Pacing Mr Is-1 Bipolar Connection 7841 - [id number] - [id number] Implanted:Qty: 1 on 04/27/2022 by Murray Brown MD at [facility] Lead [employer] Nadiya [id number] 03/29/2024 7841 / [id number] / [employer] Stent Coronary De Rx Cocr Ors Msn 2.20c13rc [id number] - S0 - [id number] Implanted:Qty: 1 on 10/24/2024 by Salomon Pulliam MD at [facility] Stent [employer] 08/26/2027 [id number] / [id number] / [id number] [employer] Device Closure Vascade Od5 Fr Femoral Artery [id number] - [id number] - [id number] Implanted:Qty: 1 on 12/27/2022 by Martin Benson III, MD at [facility] Vascular Closure Device Left: Femoral Vein [employer] 06/10/2024 700-500D X-05U / [id number] / [id number] [employer] Vascade Mvp 6-12fr Venous Closure [id number] - [id number] - [id number] Implanted:Qty: 1 on 12/27/2022 by Martin Benson III, MD at [facility] Vascular Closure Device Left: Femoral Vein [employer] 09/14/2024 [id number] -10U / [id number] / [id number] [employer] Vascade Mvp 6-12fr Venous Closure 427-235d-[id number] - [id number] - [id number] Implanted:Qty: 1 on 12/27/2022 by Martin Benson III, MD at [facility] Vascular Closure Device Right: Femoral Vein [employer] 09/14/2024 800-612C -10U / [id number] / [id number] [employer] Vascade Mvp 6-12fr Venous Closure [id number] - [id number] - [id number] Implanted:Qty: 1 on 12/27/2022 by Martin Benson III, MD at [facility] Vascular Closure Device Right: Femoral Vein [employer] 09/14/2024 [id number] -10U / [id number] / [id number] [employer] System Closure Repair Femoral Artery Suture Mediated Perclose Prostyle 73963-21 - S0 - [id number] Implanted:Qty: 1 on 10/24/2024 by Salomon Pulliam MD at [facility] Vascular Closure Device [employer] 09/03/2026 [id number] / 0 / [id number] Procedures Procedure Name Priority Date/Time Associated Diagnosis Comments DEVICE CHECK - REMOTE Routine 02/18/2025 9:09 AM CDT VT (ventricular tachycardia) EGFR STAT 10/24/2024 9:05 AM CDT Unstable angina pectoris (HCC) POCT LIPID PANEL Routine 09/18/2024 8:39 AM CDT Coronary artery disease of [place] artery of [place] heart with stable angina pectoris HEMOGLOBIN A1C Routine 09/16/2022 1:24 PM CDT Diabetes mellitus type II, non insulin dependent (HCC) from Last 3 Months or Most Recently Relevant to Health Maintenance Results * DEVICE CHECK - REMOTE (02/18/2025 9:09 AM CDT) Anatomical Region Laterality Modality Other Narrative 02/19/2025 9:49 AM CDT Table formatting from the original result was not included. ICD CHECK (REMOTE) Patient ID: Sesar Alves is a 64 y.o. male This patient received a [employer] ICD. They had a remote transmission on 02/18/2025. Device implant indications: Ventricular tachycardia Interrogation of the patient's device demonstrates the following: Presenting EGM: A sensed V sensed @ 87 bpm Original Device Settings Right Atrium Right Ventricle Sensitivity (mV) Auto mV Auto mV Pacing Outputs 2.5 V @ 0.4 ms 2.5 V @ 0.4 ms Testing Measurements Right Atrium Right Ventricle Sensitivity (mV) 1.9 mV 7.5 mV Impedence (Ohms) 598 ohms 338 ohms High Voltage Impedence 50 ohms Pace Threshold Not done V @ ms Not done V @ ms Pacing % 0 % 0 % Battery Status: 10.5 years to CA with Charge Time 10.5 seconds Episodes last 90 days/Comments: AF [place] less than 1 %, there were numerous episodes classified as AT/AF the longest lasting 7 seconds ventricular rates always controlled, no available EGMs for review. There were also numerous episodes classified as nonsustained ventricular tachycardia the longest lasting 1 minute 13 seconds, EGM shows SVT rates in the 130s. There were no treated ventricular arrhythmias noted on today's remote interrogation. NORMAL DEVICE FUNCTION PROGRAMMED Medications: Anti-coagulant(s): Aspirin 81 mg daily, Plavix 75 mg daily Anti-arrhythmic(s): Toprol XL 150 mg daily PLAN: 1) [employer] ICD evaluation. 2) [employer] remote transmission scheduled in 3 months. 3) Programming appropriate for device measurements Apolinar Hester RN us Martin Benson III, MD [facility] PROCEDURES Final Result * eGFR (10/24/2024 9:05 AM CDT) eGFR [...] LAB BLOOD ORDERABLES Fin al Result [facility] [address] [place] [address] * POCT lipid panel (09/18/2024 8:39 AM CDT) HDL, POC 30 mg/dL Triglycerides, POC 142 mg/dL LDL Cholesterol POC 41.6 mg/dL Cholesterol Total, POC 100 mg/dL Capillary blood 09/18/2024 8:39 AM CDT Alexandru Warren MD POINT OF CARE TEST ORDERABL ES Final Result * (ABNORMAL) Hemoglobin A1c (09/16/2022 1:24 PM CDT) Hgb A1C 6.2(H) <5.7 % of total Hgb Beatsy- yogesh Rao Comment: For someone without known diabetes, [...] Warren MD LAB BLOOD ORDERABLES [facility] [address] [place] [address] from Last 3 Months or Most Recently Relevant to Health Maintenance [place] Advance Directives For more information, please contact: [phone] * Full Code (Latest Code Status on File) Date Activated Date Inactivated Comments 05/01/2022 4:42 PM 05/07/2022 9:51 PM * Full Code Date Activated Date Inactivated Comments 04/25/2022 4:42 PM 04/28/2022 3:44 PM Care Teams Java User Interface Developer Relationship Specialty Start Date End Date Fabiola Liu MD PCP - General Family Practice 04/19/22 Murray Brown MD [address] [facility] [address], [place] [id number] Consulting Physician Cardiology 04/28/22 Alexandru Warren MD [address] [facility] [address], [place] [id number] Mailer Apprentice Cardiology 05/10/22
--- OUTSIDE RECORDS SUMMARY | 2025-04-29 00:32 | XMS_ITS | Clinical Summary ---
Author Organization [facility] Address [address] [place] [address] Phone Care Team Providers Care Hr Business Partner Consultant Name Role Phone Provider, None Primary Care [...] 2011 Zoster Immunization (1 of 2) 2011 Influenza Immunization (#1) 2025 03/08/2017 SARS-COV-2 Immunization ( season) 2025 05/24/2021, 09/23/2020, 09/02/2020 Respiratory Syncytial Virus (RSV) Immunization (Adult) (1 [...] patient's age to complete this topic Insurance [facility] Care Teams Hr Business Partner Consultant Relationship Specialty Start Date End Date Provider, None BAYLEE PCP - General 05/06/20
--- OUTSIDE RECORDS SUMMARY | 2025-04-29 00:32 | XMS_ITS | Patient Health Record ---
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 Problem 63519597 Ventricular arrh ythmia (I49.9) Active confirmed Problem 994445761 Systolic CHF wit h reduced left ventricular function, NYHA class 2 (I50.20) Active confirmed Problem 55495036 ST elevation guy cardial infarction involving right coronary artery (I21.11) Active confirmed Problem 402616113 Type 2 diabetes mellitus without complication, without long-term current use of insulin (E11.9) Active confirmed Problem 523062552 Pure hypercholesterolemia (E78.00) Active confirmed Plan Of Treatment Pending Test Test Name Order Date Hemoglobin A1c (QM001) 10/18/2022 Future Test Test Name Order Date COMPREHENSIVE METABOLIC PANEL(Q-09573) 0 06/18/2022 URINALYSIS, COMPLETE (Q-5463) 06/18/2022 COMPREHENSIVE METABOLIC PANEL(Q-91461) 0 07/16/2022 ALBUMIN, RANDOM URINE W/CREATININE (Q-65 17) 07/16/2022 Insurance Providers Payer Name Payer Address Payer Phone Subscriber Number Group Number Insured Name Patient Relationship to Insured Coverage Start Date Coverage End Date [place] [address] [place]IGE PANTOJA [id number] Sesar Samuel Self - patient is the insured 3 Medical (General) History Medical History History ICD Code Tachycardia Atrial Flutter STEMI Cardiomyopathy HANSEL on CPAP hyperlipidemia Vitamin D deficiency recurrent viertigo Surgical History Surgery Date(Month/Year) rotater cuff - bilateral BAck ICD placment Hospitalization History Reason Date(Month/Year) as above
[2025-04-29 08:26] VITALS: BP 116/64; PULSE 84; RESP 20; TEMP 35.9; O2SAT 98; BMI 30.7
[2025-04-29] MEDS: LACTATED RINGERS 1,000 ML 150 ML IV CONT (08:42)
--- NOTE | 2025-04-29 08:49 | WPDANESEPPF ---
Anes - Initial Pre Proc Eval Procedure: Operation Date: 04/29/25 09:30 Proposed Procedures p Esophagogastroduodenoscopy & Colonoscopy - Luis Miguel Saleem MD Date/Time: 04/29/25 08:49 Surgeon: Luis Miguel Saleem MD Pre Op Diagnosis: Personal history of colon polyps,dysphagia Patient Data Age: 65 Gender: M Height: 1.73 m Weight: 91.6 kg Last Vital Signs Temp 96.6 F L 04/29/25 08:26 Pulse 84 04/29/25 08:26 Resp 20 04/29/25 08:26 BP 116/64 04/29/25 08:26 Pulse Ox 98 04/29/25 08:26 O2 Del Method Room Air 04/29/25 08:26 Allergies Allergy/AdvReac Type Severity Reaction Status Date / Time No Known Allergies Allergy Verified 04/29/25 08:24 Home Medications ?Medication ?Instructions ?Recorded ?Confirmed ?Type blood sugar diagnostic (OneTouch #50 ea 01/13/22 01/17/25 Rx Ultra Test strips) lancets 30 gauge (OneTouch Delica #100 ea 01/13/22 01/17/25 Rx Lancets) clopidogrel 75 mg tablet 75 mg PO QAM #180 tabs 04/21/22 04/29/25 Rx blood-glucose meter (OneTouch #1 ea 05/16/22 01/17/25 Rx Verio Reflect Meter) dapagliflozin propanediol 10 mg 10 mg PO DAILY #90 tabs 09/22/22 04/29/25 Rx tablet (Farxiga) nitroglycerin 0.4 mg sublingual 0.4 mg sublingual Q5MIN PRN Chest 09/20/23 01/17/25 Rx tablet (Nitrostat) Pain #30 tabs cholecalciferol (vitamin D3) 125 125 mcg PO DAILY 02/13/24 04/29/25 History mcg (5,000 unit) capsule furosemide 20 mg tablet 20 mg PO .QOD 02/13/24 04/29/25 History sacubitril 49 mg-valsartan 51 mg 1 tablet PO BID 02/13/24 04/29/25 History tablet (Entresto) spironolactone 25 mg tablet 25 mg PO DAILY 02/13/24 04/29/25 History tadalafil 10 mg tablet (Cialis) 10 mg PO DAILY PRN sexual activity 05/14/24 01/17/25 Rx #30 tabs aspirin 81 mg chewable tablet 81 mg PO DAILY 10/05/24 04/29/25 History fluticasone propionate 50 2 spray intranasal DAILY #16 grams 11/27/24 04/29/25 Rx mcg/actuation nasal spray,suspension (Flonase Allergy Relief) levothyroxine 100 mcg tablet 100 mcg PO DAILY 11/27/24 04/29/25 History metoprolol succinate 100 mg 150 mg PO DAILY 11/27/24 04/29/25 History tablet,extended release 24 hr rosuvastatin 40 mg tablet 40 mg PO QHS 11/27/24 04/23/25 History blood sugar diagnostic (OneTouch #100 ea 11/29/24 01/17/25 Rx Verio test strips) glipizide 5 mg tablet, extended 5 mg PO DAILY #90 tabs 12/03/24 04/29/25 Rx release 24 hr cyclobenzaprine 5 mg tablet 5 mg PO Q12H #14 tabs 01/16/25 04/23/25 Rx hydrocodone 5 mg-acetaminophen 325 1 tablet PO Q12H PRN pain #14 tabs 01/16/25 04/23/25 Rx mg tablet metformin 500 mg tablet 1,000 mg (2 x 500 mg) PO BIDWMEAL 01/28/25 04/29/25 Rx #360 tabs cetirizine 5 mg-pseudoephedrine ER 1 tablet PO ONCE PRN allergy 04/23/25 04/29/25 History 120 mg tablet,extended symptoms release,12hr (All Day Allergy-D) simvastatin 80 mg tablet 80 mg PO QPM 04/23/25 04/29/25 History Patient hx anesthesia problems: none Family hx anesthesia problems: none Results Review: All pre-operative results and documents have been reviewed as part of the pre-operative evaluation. [facility] Past Medical History Medical History Back pain with history of spinal surgery Effusion of knee joint Degenerative joint disease of knee Numbness and tingling of both upper extremities Left hand pain Hypothyroid Hyperlipidemia, unspecified Hypothyroidism (acquired) Synovial cyst of popliteal space [Rodriguez], right knee Family history of premature CAD Right knee pain Lower extremity tendinopathy CT 05/02/23 Rodriguez's cyst Diabetes Recurrent vertigo Erectile dysfunction Combined hyperlipidemia HANSEL on CPAP Vitamin D deficiency, unspecified Surgical History Surgical History Stented coronary artery History of uvulectomy History of tonsillectomy and adenoidectomy History of esophageal dilatation (~06/2018) History of radiofrequency ablation procedure for cardiac arrhythmia (~12/2022) for V TACH History of coronary artery stent placement (~04/2022) Cardiac defibrillator in place (~05/2022) Family History Family History Father Acute myocardial infarction Social History Social History Social History: Pt is lives with . Pt is retired. Smoking status: Never smoker Second hand tobacco smoke exposure: Yes Alcohol intake: never Drinks per week: 4 Substance use: former Substance use type: does not use Last use: 04/17/22 Lack of Transportation: No Lack of Food: Never True Current Housing: I Have Housing Concerned About Future Housing: No Difficulty Paying Gas/Electric Bills: No Difficulty Paying for Meds: No Currently Unemployed: No Education: Trade/Vocational Certificate Difficulty w/ Childcare or Family Care: No Living arrangements: with family Occupation/Education: retired Gender identity (if verbalized by the patient): Male Sexual Orientation (if Verbalized by the Patient): Straight or Heterosexual Spiritual care concerns: No Agree to blood products: Yes Anes - Eval Final PreProcedure Day of Procedure 04/29/25 08:49 Patient weight: obese Lungs: normal air movement Airway: Mallampati scale class II and special considerations (Upper caps. ) Neurological: alert and oriented Last oral intake: >/= 8 hours ASA classification: III Emergent: no Anesthetic plan: proceed Anesthesia type and monitoring: general GIVS and standard monitoring Results Review: All pre-operative results and documents have been reviewed as part of the pre-operative evaluation. S/p PTCA 2021, hx of CM, now w pacer/defib. Stress test 2023 w nml LVEF, no ischemia, LVEF 51%, HANSEL on CPAP. Informed Consent: The patient's anesthetic plan and its attendant risks and benefits were discussed with the patient/family/POA. Questions were solicited and answers provided to the satisfaction of the patient/family/POA.
--- NOTE | 2025-04-29 09:06 | PM.HPGS ---
History of Present Illness History of Present Illness Consent: Risks, benefits, and alternatives have been discussed and questions answered. Patient agrees to proceed with procedure. Chief complaint: Personal history of colon polyps,dysphagia Narrative: Sesar Alves is a 65 year old male with dysphagia and also history of colon polyps Review of Systems Review of Systems: All systems reviewed & are unremarkable except as noted in HPI and below PMFSH Past Medical History Medical History (Updated 04/29/25 @ 09:08 by Luis Miguel Saleem MD) Polyp, colonic Back pain with history of spinal surgery Effusion of knee joint Degenerative joint disease of knee Numbness and tingling of both upper extremities Left hand pain Hypothyroid Hyperlipidemia, unspecified Hypothyroidism (acquired) Synovial cyst of popliteal space [Rodriguez], right knee Family history of premature CAD Right knee pain Lower extremity tendinopathy CT 05/02/23 Rodriguez's cyst Diabetes Recurrent vertigo Erectile dysfunction Combined hyperlipidemia HANSEL on CPAP Vitamin D deficiency, unspecified Surgical History Surgical History Stented coronary artery History of uvulectomy History of tonsillectomy and adenoidectomy History of esophageal dilatation (~06/2018) History of radiofrequency ablation procedure for cardiac arrhythmia (~12/2022) for V TACH History of coronary artery stent placement (~04/2022) Cardiac defibrillator in place (~05/2022) Family History Family History Father Acute myocardial infarction Social History Social History Social History: Pt is lives with . Pt is retired. Smoking status: Never smoker Second hand tobacco smoke exposure: Yes Alcohol intake: never Drinks per week: 4 Substance use: former Substance use type: does not use Last use: 04/17/22 Lack of Transportation: No Lack of Food: Never True Current Housing: I Have Housing Concerned About Future Housing: No Difficulty Paying Gas/Electric Bills: No Difficulty Paying for Meds: No Currently Unemployed: No Education: Trade/Vocational Certificate Difficulty w/ Childcare or Family Care: No Living arrangements: with family Occupation/Education: retired Gender identity (if verbalized by the patient): Male Sexual Orientation (if Verbalized by the Patient): Straight or Heterosexual Spiritual care concerns: No Agree to blood products: Yes Meds Home Medications and Allergies Home Medications ?Medication ?Instructions ?Recorded ?Confirmed ?Type blood sugar diagnostic (OneTouch #50 ea 01/13/22 01/17/25 Rx Ultra Test strips) lancets 30 gauge (OneTouch Delica #100 ea 01/13/22 01/17/25 Rx Lancets) clopidogrel 75 mg tablet 75 mg PO QAM #180 tabs 04/21/22 04/29/25 Rx blood-glucose meter (OneTouch #1 ea 05/16/22 01/17/25 Rx Verio Reflect Meter) dapagliflozin propanediol 10 mg 10 mg PO DAILY #90 tabs 09/22/22 04/29/25 Rx tablet (Farxiga) nitroglycerin 0.4 mg sublingual 0.4 mg sublingual Q5MIN PRN Chest 09/20/23 01/17/25 Rx tablet (Nitrostat) Pain #30 tabs cholecalciferol (vitamin D3) 125 125 mcg PO DAILY 02/13/24 04/29/25 History mcg (5,000 unit) capsule furosemide 20 mg tablet 20 mg PO .QOD 02/13/24 04/29/25 History sacubitril 49 mg-valsartan 51 mg 1 tablet PO BID 02/13/24 04/29/25 History tablet (Entresto) spironolactone 25 mg tablet 25 mg PO DAILY 02/13/24 04/29/25 History tadalafil 10 mg tablet (Cialis) 10 mg PO DAILY PRN sexual activity 05/14/24 01/17/25 Rx #30 tabs aspirin 81 mg chewable tablet 81 mg PO DAILY 10/05/24 04/29/25 History fluticasone propionate 50 2 spray intranasal DAILY #16 grams 11/27/24 04/29/25 Rx mcg/actuation nasal spray,suspension (Flonase Allergy Relief) levothyroxine 100 mcg tablet 100 mcg PO DAILY 11/27/24 04/29/25 History metoprolol succinate 100 mg 150 mg PO DAILY 11/27/24 04/29/25 History tablet,extended release 24 hr rosuvastatin 40 mg tablet 40 mg PO QHS 11/27/24 04/23/25 History blood sugar diagnostic (OneTouch #100 ea 11/29/24 01/17/25 Rx Verio test strips) glipizide 5 mg tablet, extended 5 mg PO DAILY #90 tabs 12/03/24 04/29/25 Rx release 24 hr cyclobenzaprine 5 mg tablet 5 mg PO Q12H #14 tabs 01/16/25 04/23/25 Rx hydrocodone 5 mg-acetaminophen 325 1 tablet PO Q12H PRN pain #14 tabs 01/16/25 04/23/25 Rx mg tablet metformin 500 mg tablet 1,000 mg (2 x 500 mg) PO BIDWMEAL 01/28/25 04/29/25 Rx #360 tabs cetirizine 5 mg-pseudoephedrine ER 1 tablet PO ONCE PRN allergy 04/23/25 04/29/25 History 120 mg tablet,extended symptoms release,12hr (All Day Allergy-D) simvastatin 80 mg tablet 80 mg PO QPM 04/23/25 04/29/25 History Allergies Allergy/AdvReac Type Severity Reaction Status Date / Time No Known Allergies Allergy Verified 04/29/25 08:24 Vital Signs Vital Signs - 24 hr 04/29/25 08:26 Temperature 96.6 F L Pulse Rate 84 Respiratory Rate 20 Blood Pressure 116/64 Pulse Oximetry 98 Oxygen Delivery Room Air Exam Const: General: comfortable and no acute distress HENMT: Face/Nose/Sinus: Normal nares present Eyes: General: appearance normal, both eyes and all related structures Resp: Auscultation: clear to auscultation bilaterally Cardio: Rate: regular rate Rhythm: regular rhythm GI: Inspection: non-distended GI Palp: Yes Soft to palpation Skin: General skin exam: normal color Extrem: General: normal to inspection Psych: Mental Status: mental status grossly normal Assessment and Plan Assessment and plan (1) Esophageal dysphagia: Code(s): R13.19 - Other dysphagia Status: Acute Assessment and Plan: egd (2) Polyp, colonic: Code(s): K63.5 - Polyp of colon Status: Acute Assessment and Plan: colonoscopy
--- NOTE | 2025-04-29 09:23 | SUR.OPER ---
EGD ended 917 colonoscopy started 922
--- NOTE | 2025-04-29 09:26 | S_PTH ---
PATIENT: Sesar Alves LOC: [facility] [place]#:[id number] AGE/SX: 65/M ROOM: RE04/29/[address]: Luis Miguel Saleem MD : 1960 BED: DIS: 04/29/2025 SPEC #: [id number] RECD: 04/29/25 11:43 STATUS: TIARA REForeign #: [id number] CAPRICE: 04/29/25 09:[address]: Luis Miguel Saleem DEPT: [facility] Surgical RECD BY: Jenni Augustin ENTERED: 04/29/25 11:44 SP TYPE: Surgical OTHR DR: Fabiola Liu MD Tissues: A - Esophageal Biopsy B - Gastric Biopsy C - Colon Polypectomy D - Colon Polypectomy E - Colon Polypectomy Procedures: Pas with Diastase Immunoperoxidase Hematoxylin and Eosin Stain Gross and Microscopic Level 4
[2025-04-29 09:33] VITALS: BP 98/64; PULSE 82; RESP 18; O2SAT 98
[2025-04-29 09:43] VITALS: BP 101/68; PULSE 72; RESP 16; O2SAT 98
[2025-04-29 09:53] VITALS: BP 113/61; PULSE 72; RESP 16; O2SAT 98
== END 2025-04-29 10:01 | disposition home or self-care (01) ==
PROVIDERS: PCP Family Medicine; Visit Provider Internal Medicine Gastroenterology
PROC: 0DJ08ZZ Inspection of Upper Intestinal Tract, Via Natural or Artificial Opening Endoscopic (ICD-10-PCS; CPT 45378; principal; 2025-04-29 09:30)
DX: Z12.11 Encounter for screening for malignant neoplasm of colon (principal); D12.2 Benign neoplasm of ascending colon; D12.3 Benign neoplasm of transverse colon; D12.5 Benign neoplasm of sigmoid colon; K21.00 Gastro-esophageal reflux disease with esophagitis, without bleeding; K22.10 Ulcer of esophagus without bleeding; K22.2 Esophageal obstruction; K44.9 Diaphragmatic hernia without obstruction or gangrene; K29.70 Gastritis, unspecified, without bleeding
CPT/HCPCS: 45385; 43249; 43239; 82948; 88305; 88313; 88342; C1726; J2704; J7120